=== PATIENT | female | born 1970 | race Caucasian/White ===

== ENCOUNTER 2019-08-18 08:34 | Inpatient (IN) | payer OTHER, SELFPAY ==
[2019-08-18] MEDS ORDERED: NA CHLORIDE 0.9% 500 ML ONE (08:53)
[2019-08-18 09:13] LABS: Basophils % 0.8 % (0-1.3); Hematocrit 28.6 % (36.0-45.0); Lymphocytes % 21.9 % (15.3-44.8); MPV 6.9 fL (7.6-11.3); RBC Red Blood Cell Count 4.55 M/uL (3.86-4.86)
[2019-08-18 09:17] LABS: Protime INR 1.04
[2019-08-18 09:28] LABS: ALT/SGPT 14 U/L (12-78); AST/SGOT 9 U/L (15-37); Albumin 3.4 g/dL (3.4-5.0); Alkaline Phosphatase 63 U/L (45-117); BUN Blood Urea Nitrogen 19 mg/dL (7-18); Bicarbonate 22 mmol/L (21-32); Bilirubin Direct < 0.1 mg/dL (0-0.2); Bilirubin Total 0.2 mg/dL (0.2-1.0); Glucose Level 122 mg/dL (74-106); Magnesium 1.8 mg/dL (1.8-2.4); NT PRO-BNP 67 pg/mL (<125); Potassium 3.9 mmol/L (3.5-5.1); Protein, Total 7.2 g/dL (6.4-8.2); Sodium Level 136 mmol/L (136-145); Troponin (Emerg Dept Use Only) < 0.02 ng/mL (0.0-0.045)
--- NOTE | 2019-08-18 09:52 | RAD REPORT ---
EXAM DESCRIPTION: RAD - Chest Single View - 08/18/2019 9:32 am CLINICAL HISTORY: CHEST PAIN Chest pain. COMPARISON: CHEST SINGLE VIEW dated 01/13/2008; CHEST PA AND LAT 2 VIEW dated 06/02/2007 FINDINGS: Portable technique limits examination quality. The lungs are grossly clear. The heart is normal in size. No displaced fractures. IMPRESSION: No acute intrathoracic process suspected.
[2019-08-18 10:05] LABS: Anisocytosis 1+; Blood Morphology Comment NOTED (NOT SEEN); Hypochromasia 2+; Macrocytosis SLIGHT; Ovalocytes 1+; Platelet Estimate ADEQ
--- NOTE | 2019-08-18 10:22 | EDPHYS ---
Physician Documentation [facility] Name: Sally Navarro Age: 49 yrs Sex: Female : 1970 Arrival Date: 08/18/2019 Time: 08:35 Bed 7 Private MD: ED Physician Sean Yanez HPI: 08/17 08:35 This 49 yrs old Female presents to ER via EMS with complaints of Chest Pain. cp 08:35 The patient or guardian reports chest pain that is located primarily in the substernal cp area. Onset: suddenly, this morning. The pain does not radiate. Associated signs and symptoms: Pertinent negatives: abdominal pain, diaphoresis, lower extremity pain, lower extremity swelling, palpitations, shortness of breath, syncope, vomiting. The chest pain is described as sharp. Duration: The patient or guardian reports a single episode, that is still ongoing, but improving. Patient reports sudden onset of chest pain while at work this morning .Patient reports she was walking up stairs when pain started. Patient given nitro sublingual and aspirin by EMS. Pain improved. 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 - Social history:: Smoking status: Patient reports the use of cigarette tobacco products, unknown amount. ROS: 08:40 Constitutional: Negative for body aches, chills, fever, poor PO intake. cp 08:40 Eyes: Negative for injury, pain, redness, and discharge. cp 08:40 ENT: Negative for ear pain, sore throat, difficulty swallowing, difficulty handling secretions. 08:40 Cardiovascular: Positive for chest pain, Negative for edema, palpitations. 08:40 Respiratory: Negative for cough, shortness of breath, wheezing. 08:40 Abdomen/GI: Negative for abdominal pain, vomiting, diarrhea, constipation. 08:40 Back: Negative for radiated pain. 08:40 : Negative for urinary symptoms. 08:40 Skin: Negative for rash. 08:40 Neuro: Negative for altered mental status, dizziness, headache, numbness, syncope, weakness. 08:40 All other systems are negative. Exam: 08:45 ECG was reviewed by the Attending Physician. cp 08:48 Constitutional: The patient appears in no acute distress, alert, awake, comfortable, cp non-diaphoretic, non-toxic, well developed, well nourished. 08:48 Head/Face: Normocephalic, atraumatic. cp 08:48 Eyes: Periorbital structures: appear normal, Pupils: equal, round, and reactive to light and accomodation, Extraocular movements: intact throughout, Conjunctiva: normal, Sclera: no appreciated abnormality, Lids and lashes: appear normal, bilaterally. 08:48 ENT: External ear(s): are unremarkable, Nose: is normal, Mouth: is normal, Posterior pharynx: is normal, airway is patent, no erythema, no exudate. 08:48 Neck: ROM/movement: is normal, is supple, without pain, no range of motions limitations, no nuchal rigidity. 08:48 Chest/axilla: Inspection: normal, Palpation: is normal, no crepitus, no tenderness. 08:48 Cardiovascular: Rate: normal, Rhythm: regular, Heart sounds: murmur, not appreciated, rub, not appreciated, gallop, not appreciated, Edema: is not appreciated, JVD: is not appreciated. 08:48 Respiratory: the patient does not display signs of respiratory distress, Respirations: normal, no use of accessory muscles, no retractions, labored breathing, is not present, Breath sounds: are clear throughout, no decreased breath sounds, no stridor, no wheezing. 08:48 Abdomen/GI: Inspection: abdomen appears normal, Palpation: abdomen is soft and non-tender, in all quadrants. 08:48 Back: pain, is absent, ROM is normal. 08:48 Neuro: Orientation: to person, place \T\ time. Mentation: is normal, Cerebellar function: is grossly normal, Motor: moves all fours, strength is normal, Sensation: is normal. Vital Signs: 08:30 BP 118 / 67; Pulse 81; Resp 18; Temp 98.6(TE); Pulse Ox 98% on R/A; Weight 97.52 kg rb1 (R); Height 5 ft. 8 in. (172.72 cm) (R); Pain 3/10; 08:45 BP 115 / 71 RA Sitting (man/reg); em1 08:45 BP 124 / 72 LA Sitting (auto/reg); em1 08:55 BP 117 / 68 LA (auto/reg); rb1 09:55 BP 144 / 93; Pulse 71; Resp 17; Pulse Ox 99% ; rb1 10:55 BP 150 / 86; Pulse 78; Resp 16; Pulse Ox 95% ; rb1 08:30 Body Mass Index 32.69 (97.52 kg, 172.72 cm) rb1 MDM: 08:37 Patient medically screened. cp 08:38 The patient was not given aspirin in the Emergency Department. Administered by EMS. cp 08:45 Differential diagnosis: abnormal EKG, acute myocardial infarction, cholecystitis, cp Cholelithiasis pericarditis, pneumonia, pneumothorax, pulmonary embolus, stable angina, thoracic aortic disection, unstable angina. 10:08 HEART Score: History: Moderately Suspicious (1), ECG: Normal (0), Age: > 45 and < 65 cp years (1), Risk Factors: 1 or 2 risk factors (1), [Hypertension] Troponin: < or = 1 x Normal Limit (0). 10:10 Data reviewed: vital signs, nurses notes, lab test result(s), EKG, radiologic studies, cp plain films, and as a result, I will admit patient. 10:10 Test interpretation: by ED physician or midlevel provider: ECG. Counseling: I had a cp detailed discussion with the patient and/or guardian regarding: the historical points, exam findings, and any diagnostic results supporting the discharge/admit diagnosis, lab results, radiology results, the need for further work-up and treatment in the hospital. Response to treatment: the patient's symptoms have markedly improved after treatment. 10:15 Physician consultation: Eliseo Fischer DO was contacted at 10:15, regarding admission, cp to the telemetry unit. patient's condition. 08/17 08:37 Order name: Basic Metabolic Panel; Complete Time: 09:55 cp 08/17 09:55 Interpretation: Normal except: GLUC 122; BUN 19; GFR 73. cp 08/17 08:37 Order name: CBC with Diff; Complete Time: 10:07 cp 08/17 09:25 Interpretation: Normal except: HGB 8.6; HCT 28.6; MCV 63.0; MCH 19.0; MCHC 30.2; PLT cp 413; RDW 17.8; MPV 6.9. 08/17 08:37 Order name: LFT's; Complete Time: 09:55 cp 18 09:56 Interpretation: Normal except: AST 9; GLOB 3.8; A/G 0.9. cp 08/17 08:37 Order name: Magnesium; Complete Time: 09:55 cp 08/17 08:37 Order name: NT PRO-BNP; Complete Time: 09:55 cp 08/17 08:37 Order name: PT-INR; Complete Time: 09:24 cp 18 08:37 Order name: Troponin (emerg Dept Use Only); Complete Time: 09:55 cp 18 09:56 Interpretation: TROPED < 0.02; Reviewed. cp 08/17 08:37 Order name: XRAY Chest (1 view); Complete Time: 10:07 cp 08/17 10:07 Interpretation: Report review. cp 08/17 08:37 Order name: EKG; Complete Time: 08:38 cp 08/17 08:37 Order name: Cardiac monitoring; Complete Time: 08:43 cp 08/17 08:37 Order name: EKG - Nurse/Tech; Complete Time: 08:43 cp 08/17 10:06 Order name: Manual Differential; Complete Time: 10:07 EDMS 08/17 08:37 Order name: IV Saline Lock; Complete Time: 09:02 cp 08/17 08:37 Order name: Labs collected and sent; Complete Time: 09:02 cp 08/17 08:37 Order name: O2 Per Protocol; Complete Time: 08:43 cp 08/17 08:37 Order name: O2 Sat Monitoring; Complete Time: 08:43 cp 08/17 08:39 Order name: Blood Pressure Recheck: bilateral upper extremity; Complete Time: 08:45 cp EC:45 Rate is 76 beats/min. Rhythm is regular. ME interval is normal. QRS interval is normal. cp QT interval is normal. T waves are Flattened in lead aVL. Interpreted by me. Reviewed by me. Administered Medications: 08:51 Drug: NS 0.9% 500 ml Route: IV; Rate: bolus; Site: right antecubital; rb1 09:30 Follow up: IV Status: Completed infusion rb1 11:25 Not Given (Patient Refused; Chest pain 03/11 per pt report): Nitroglycerin 0.4 mg rb1 Sublingual once Disposition: 08/18/19 10:21 Hospitalization ordered by Eliseo Fischer for Observation. Preliminary diagnosis is Chest pain, unspecified. - Bed requested for Telemetry/MedSurg (observation). - Status is Observation. rb1 - Condition is Stable. - Problem is new. - Symptoms have improved. Addendum: 08/19/2019 14:52 Co-signature as Attending Physician, Sean Yanez MD I agree with the assessment and k dr plan of care. Signatures: Dispatcher [employer] EDMS Libby Jewell bd Sean Yanez MD MD kdr Riki Hendrickson PA PA cp Gali Montiel, RN RN rb1 Contreras Bradley RN RN bp Corrections: (The following items were deleted from the chart) 08/17 10:53 10:21 Hospitalization Ordered by Eliseo Fischer DO for Observation. Preliminary bd diagnosis is Chest pain, unspecified. Bed requested for Telemetry/MedSurg (observation). Status is Observation. Condition is Stable. Problem is new. Symptoms have improved. cp 11:39 10:53 08/18/2019 10:21 Hospitalization Ordered by Eliseo Fischer DO for Observation. rb1 Preliminary diagnosis is Chest pain, unspecified. Bed requested for Telemetry/MedSurg (observation). Status is Observation. Condition is Stable. Problem is new. Symptoms have improved. bd
--- NOTE | 2019-08-18 10:22 | ER ---
Nurse's Notes [facility] Name: Sally Navarro Age: 49 yrs Sex: Female : 1970 Arrival Date: 08/18/2019 Time: 08:35 Bed 7 Private MD: Diagnosis: Chest pain, unspecified Presentation: 08/17 08:30 Initial Sepsis Screen: Does the patient meet any 2 criteria? No. Patient's initial rb1 sepsis screen is negative. Does the patient have a suspected source of infection? No. Patient's initial sepsis screen is negative. 08:30 Acuity: RONA 3 rb1 08:35 Chief complaint: EMS states: EXERTIONAL CHEST PAIN AT WORK. Coronavirus screen: Proceed bp with normal triage. Ebola Screen: No symptoms or risks identified at this time. Risk Assessment: Do you want to hurt yourself or someone else? Patient reports no desire to harm self or others. Onset of symptoms was August 18, 2019. 08:35 Method Of Arrival: EMS: [facility] bp Triage Assessment: 08:30 General: Appears in no apparent distress. comfortable, Behavior is calm, cooperative, rb1 Denies fever. Pain: Complains of pain in mid-sternal area Pain does not radiate. Pain currently is 3 out of 10 on a pain scale. Quality of pain is described as sharp, Pain began 1 hour ago. Neuro: Level of Consciousness is awake, alert, obeys commands, Oriented to person, place, time, situation. Cardiovascular: Capillary refill < 3 seconds. Respiratory: Airway is patent Respiratory effort is even, unlabored, Respiratory pattern is regular, symmetrical. GI: Reports nausea, vomiting. : No signs and/or symptoms were reported regarding the genitourinary system. Derm: Skin is pink, warm \T\ dry. Musculoskeletal: Range of motion: intact in all extremities. 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 - Social history:: Smoking status: Patient reports the use of cigarette tobacco products, unknown amount. Screenin:37 Abuse screen: Denies threats or abuse. Denies injuries from another. Nutritional bp screening: No deficits noted. Tuberculosis screening: No symptoms or risk factors identified. Fall Risk None identified. Assessment: 08:30 General: See triage assessment. rb1 08:46 Reassessment: Pt. refused Nitroglycerin at this time, provider notified. rb1 09:04 Pain: Complains of pain in mid-sternal area Pain currently is 1 out of 10 on a pain rb1 scale. 10:00 Reassessment: Patient appears in no apparent distress at this time. Patient and/or rb1 family updated on plan of care and expected duration. Pain level reassessed. Patient is alert, oriented x 3, equal unlabored respirations, skin warm/dry/pink. 11:00 Reassessment: Patient appears in no apparent distress at this time. No changes from rb1 previously documented assessment. 11:07 Reassessment: Tried to call report, unable to give report at this time, AMIE Marcus is rb1 in another pt. room. 11:20 Reassessment: Gave report to AMIE Marcus. Information from the SBAR was given. All rb1 questions asked and answered. Vital Signs: 08:30 BP 118 / 67; Pulse 81; Resp 18; Temp 98.6(TE); Pulse Ox 98% on R/A; Weight 97.52 kg rb1 (R); Height 5 ft. 8 in. (172.72 cm) (R); Pain 3/10; 08:45 BP 115 / 71 RA Sitting (man/reg); em1 08:45 BP 124 / 72 LA Sitting (auto/reg); em1 08:55 BP 117 / 68 LA (auto/reg); rb1 09:55 BP 144 / 93; Pulse 71; Resp 17; Pulse Ox 99% ; rb1 10:55 BP 150 / 86; Pulse 78; Resp 16; Pulse Ox 95% ; rb1 08:30 Body Mass Index 32.69 (97.52 kg, 172.72 cm) rb1 ED Course: 08:30 Arm band placed on right wrist. rb1 08:30 Patient maintains SpO2 saturation greater than 95% on room air. rb1 08:35 Patient arrived in ED. bp 08:36 Riki Hendrickson PA is PHCP. cp 08:36 Sean Yanez MD is Attending Physician. cp 08:37 Patient has correct armband on for positive identification. Bed in low position. Call bp light in reach. Side rails up X2. telemetry monitor on. Pulse ox on. NIBP on. 08:38 Gali Montiel, RN is Primary Nurse. rb1 08:39 Triage completed. rb1 08:45 EKG done, by ED staff, reviewed by Riki METZ. em1 08:50 Inserted saline lock: 22 gauge in right forearm, using aseptic technique. Blood rb1 collected. 09:33 XRAY Chest (1 view) In Process Unspecified. EDMS 10:20 Eliseo Fischer DO is Hospitalizing Provider. cp 11:24 No provider procedures requiring assistance completed. Patient admitted, IV remains in rb1 place. Administered Medications: 08:51 Drug: NS 0.9% 500 ml Route: IV; Rate: bolus; Site: right antecubital; rb1 09:30 Follow up: IV Status: Completed infusion rb1 11:25 Not Given (Patient Refused; Chest pain 03/11 per pt report): Nitroglycerin 0.4 mg rb1 Sublingual once Outcome: 10:21 Decision to Hospitalize by Provider. cp 11:24 Admitted to Med/surg accompanied by tech, via wheelchair, room 202, with chart, Report rb1 called to AMIE Marcus 11:24 Condition: stable 11:24 Instructed on the need for admit. 11:39 Patient left the ED. rb1 Signatures: Dispatcher [employer] EDPA Larry Cano em1 Riki Hendrickson PA PA cp Gali Montiel, RN RN rb1 Contreras Bradley RN RN bp
--- OUTSIDE RECORDS SUMMARY | 2019-08-18 10:50 | XMS REPORT | Continuity of Care Document ---
:1970 Author Organization [facility] t Address [address] [place] [address] Care Team Providers Name Role Phone Unavailable Unavailable Unavailable Payers Payer Name Policy Type Policy Number Effective Date Expiration Date S ource Problems This patient has no known problems. Allergies, Adverse Reactions, Alerts Allergy Allergy Status Severity Reaction(s) Onset Inactive Treating Comm ents Source Name Type Date Date Clinician No Known DA Active U [facility] 07-31 [facility] 00:00: [address] Medications This patient has no known medications. Procedures This patient has no known procedures. Results Test Description Test Time Test Comments Results Result [facility] e Comments - US TRANSVAGINAL 2018-06-09 Patient Name: NON OB 18:29:00 DENAE DIAZ Unit No: [id number] EXAMS: CPT CODE: [id number] [place] [id number] Location: T 18 Transvaginal and transabdominal pelvic sonogram 06/09/18 CLINICAL HISTORY: Pelvic pain with heavy bleeding. Patient presenting to the emergency room. Beta hCG value is not provided. Please correlate with this value. FINDINGS: The uterus is somewhat enlarged measuring 10.4 x 5.7 x 6 cm in dimension. The bladder appears unremarkable. The myometrium of the uterus is somewhat heterogeneous. The endometrial stripe is mildly thickened but likely functional related measuring 1.6 cm. Fibroid lesion is noted along the left posterior wall-appearing intramural measuring 1.7 x 1.1 x 1.8 cm. Additional fibroid lesion is seen along the fundus of the uterus. This also appears intramural measuring approximately 2.2 x 2.2 x 1.8 cm. No definite calcific components. No free fluid collections within the endometrial stripe which is fairly homogeneous. Fibroid lesion in the fundus of the uterus best seen with transvaginal technique. Functional appearing follicles identified. No definite abnormal adnexal masses or ovarian mass. The right ovary measures 3.4 x 1.7 x 2.3 cm. The left ovary measures 3.1 x 1.4 x 2.3 cm. Nabothian cysts seen in the lower uterine segment. No significant free fluid collections in the pelvis. IMPRESSION: There are at least 2 discrete fibroid lesions involving uterus. One is present in the fundus and the other present left posteriorly appearing intramural The endometrial stripe mildly prominent but is homogeneous. This is likely functional related. The endometrial stripe 1.7 cm No abnormal adnexal masses or findings of concern for ovarian torsion at 1829 Reported and signed by: Vanessa Verduzco MD CC: MARIA LUISA FERNANDES DO Technologist: [id number]; Radha Cortés RDMS(OB)(AB) Transcrpt Date/Tm/Trnsp: 06/09/2018 (1828) [email or web address] Orig Print D/T: S: 06/09/2018 (1831) [facility] NAME: DENAE DIAZ [id number] PHYS: [place] [address] : 1970 AGE: 47 SEX: F LOC: ZElijahERS PHONE #: [phone] EXAM DATE: 06/09/2018 STATUS: REG ER FAX #: [phone] RADIOLOGY NO: [id number] PAGE 1 Signed Report - US PELVIS 2018-06-09 Patient Name: COMPLETE 18:29:00 DENAE DIAZ Unit No: [id number] EXAMS: CPT CODE: [id number] US PELVIS COMPLETE [id number] Location: T 18 Transvaginal and transabdominal pelvic sonogram 06/09/18 CLINICAL HISTORY: Pelvic pain with heavy bleeding. Patient presenting to the emergency room. Beta hCG value is not provided. Please correlate with this value. FINDINGS: The uterus is somewhat enlarged measuring 10.4 x 5.7 x 6 cm in dimension. The bladder appears unremarkable. The myometrium of the uterus is somewhat heterogeneous. The endometrial stripe is mildly thickened but likely functional related measuring 1.6 cm. Fibroid lesion is noted along the left posterior wall-appearing intramural measuring 1.7 x 1.1 x 1.8 cm. Additional fibroid lesion is seen along the fundus of the uterus. This also appears intramural measuring approximately 2.2 x 2.2 x 1.8 cm. No definite calcific components. No free fluid collections within the endometrial stripe which is fairly homogeneous. Fibroid lesion in the fundus of the uterus best seen with transvaginal technique. Functional appearing follicles identified. No definite abnormal adnexal masses or ovarian mass. The right ovary measures 3.4 x 1.7 x 2.3 cm. The left ovary measures 3.1 x 1.4 x 2.3 cm. Nabothian cysts seen in the lower uterine segment. No significant free fluid collections in the pelvis. IMPRESSION: There are at least 2 discrete fibroid lesions involving uterus. One is present in the fundus and the other present left posteriorly appearing intramural The endometrial stripe mildly prominent but is homogeneous. This is likely functional related. The endometrial stripe 1.7 cm No abnormal adnexal masses or findings of concern for ovarian torsion at 1829 Reported and signed by: Vanessa Verduzco MD CC: MARIA LUISA FERNANDES DO Technologist: [id number]; Radha Cortés RDMS(OB)(AB) Transcrpt Date/Tm/Trnsp: 06/09/2018 (1828) [email or web address] Orig Print D/T: S: 06/09/2018 (183) [facility] NAME: DENAE DIAZ [id number] PHYS: [place] [address] : 1970 AGE: 47 SEX: F LOC: ZLELE PHONE #: [phone] EXAM DATE: 06/09/2018 STATUS: REG ER FAX #: [phone] RADIOLOGY NO: [id number] PAGE 1 Signed Report URINALYSIS COMPLETE 2018-06-09 16:14:00 Test Item Value Reference Range Interpretation Comme nts UA COLOR (test code = COLU) BROWN YELLOW UA APPEARANCE (test code = APPU) very cloudy CLEAR UA GLUCOSE DIPSTICK (test code = DGLUU) NORMAL MG/DL NORMAL UA BILIRUBIN DIPSTICK (test code = BILU) NEGATIVE MG/DL NEGATIVE UA KETONE DIPSTICK (test code = KETU) 15 MG/DL NEGATIVE A UA SPECIFIC GRAVITY (test code = SGU) 1.025 1.003-1.030 N UA BLOOD DIPSTICK (test code = BHAKTI) 250 [place]/mm3 NEGATIVE A UA PH DIPSTICK (test code = ANGEL) 6.5 5.0-9.0 N UA PROTEIN DIPSTICK (test code = PROU) 100 MG/DL NEGATIVE A UA UROBILINIOGEN DIPSTICK (test code = URO) NORMAL MG/DL NORMAL UA NITRITE DIPSTICK (test code = ARIANNE) POSITIVE NEGATIVE A UA LEUKOCYTE ESTERASE DIPSTICK (test code = LEUU) 100 /mm3 NEGA TIVE A UA CULTURE NEEDED? (test code = UACULT) NO, WBC<10 Criteria Culture Chk UA [id number] 16:14:00 Test Item Value Reference Range Interpretation Comments UA RBC (test code = RBCU) >100 RBC/HPF 0-3 A UA WBC (test code = XWBCU) 5-9 WBC/HPF 0-5 A UA EPITHELIAL CELLS (test code = FEW EPI/HPF FEW EPIU) UA BACTERIA (test code = XBACU) FEW NONE URINALYSIS [id number] 15:58:00 Test Item Value Reference Range Interpretation Comments UA COLOR (test code = COLU) BROWN YELLOW UA APPEARANCE (test code = very cloudy CLEAR APPU) UA GLUCOSE DIPSTICK (test code NORMAL MG/DL NORMAL = DGLUU) UA BILIRUBIN DIPSTICK (test NEGATIVE MG/DL NEGATIVE code = BILU) UA KETONE DIPSTICK (test code 15 MG/DL NEGATIVE A = KETU) UA SPECIFIC GRAVITY (test code 1.025 1.003-1.030 N = SGU) UA BLOOD DIPSTICK (test code = 250 [place]/mm3 NEGATIVE A BHAKTI) UA PH DIPSTICK (test code = 6.5 5.0-9.0 N ANGEL) UA PROTEIN DIPSTICK (test code 100 MG/DL NEGATIVE A = PROU) UA UROBILINIOGEN DIPSTICK NORMAL MG/DL NORMAL (test code = URO) UA NITRITE DIPSTICK (test code POSITIVE NEGATIVE A = ARIANNE) UA LEUKOCYTE ESTERASE DIPSTICK 100 /mm3 NEGATIVE A (test code = LEUU) UA CULTURE NEEDED? (test code Criteria Culture Chk = UACULT) UA [id number] 15:58:00 Test Item Value Reference Range Interpretation Comments UA RBC (test code = RBCU) RBC/HPF 0-3 UA WBC (test code = XWBCU) WBC/HPF 0-5 UA EPITHELIAL CELLS (test code = EPI/HPF FEW EPIU) UA BACTERIA (test code = XBACU) NONE URINALYSIS [id number] 15:58:00 Test Item Value Reference Range Interpretation Comments UA COLOR (test code = COLU) BROWN YELLOW UA APPEARANCE (test code = very cloudy CLEAR APPU) UA GLUCOSE DIPSTICK (test code NORMAL MG/DL NORMAL = DGLUU) UA BILIRUBIN DIPSTICK (test NEGATIVE MG/DL NEGATIVE code = BILU) UA KETONE DIPSTICK (test code 15 MG/DL NEGATIVE A = KETU) UA SPECIFIC GRAVITY (test code 1.025 1.003-1.030 N = SGU) UA BLOOD DIPSTICK (test code = 250 [place]/mm3 NEGATIVE A BHAKTI) UA PH DIPSTICK (test code = 6.5 5.0-9.0 N ANGEL) UA PROTEIN DIPSTICK (test code 100 MG/DL NEGATIVE A = PROU) UA UROBILINIOGEN DIPSTICK NORMAL MG/DL NORMAL (test code = URO) UA NITRITE DIPSTICK (test code POSITIVE NEGATIVE A = ARIANNE) UA LEUKOCYTE ESTERASE DIPSTICK 100 /mm3 NEGATIVE A (test code = LEUU) UA CULTURE NEEDED? (test code Criteria Culture Chk = UACULT) UA [id number] 15:58:00 Test Item Value Reference Range Interpretation Comments UA RBC (test code = RBCU) RBC/HPF 0-3 UA WBC (test code = XWBCU) WBC/HPF 0-5 UA EPITHELIAL CELLS (test code = EPI/HPF FEW EPIU) UA BACTERIA (test code = XBACU) NONE COMPREHENSIVE METABOLIC [id number] 15:58:00 Test Item Value Reference Range Interpretation Comments SODIUM (test code = NA) 136 MMOL/L 137-145 L POTASSIUM (test code = 4.2 MMOL/L 3.5-5.1 N K) CHLORIDE (test code = 103 MMOL/L 98-107 N CL) CARBON DIOXIDE (test 23 MMOL/L 22-30 N code = CO2) ANION GAP (test code = 14 MMOL/L 14-24 N GAP) GLUCOSE (test code = 106 MG/DL 74-106 N GLU) BLOOD UREA NITROGEN 13 MG/DL 7-17 N (test code = BUN) GLOMERULAR FILTRATION > 60 Report ing units: RATE (test code = GFR) ml/mi n/1.73 m2 (Modified MDRD Formula)Referen ce Range: > or = 6 0 ml/min/1.73 m2 CREATININE (test code = 0.70 MG/DL 0.52-1.04 N CREAT) TOTAL PROTEIN (test 8.4 G/DL 6.3-8.2 H code = PROT) ALBUMIN (test code = 4.6 G/DL 3.5-5.0 N ALB) CALCIUM (test code = 9.3 MG/DL 8.4-10.2 N CA) BILIRUBIN TOTAL (test 0.3 MG/DL 0.2-1.3 N code = BILT) SGOT/AST (test code = 22 UNITS/L 14-36 N AST) SGPT/ALT (test code = 12 UNITS/L 9-52 N ALT) ALKALINE PHOSPHATASE 72 UNITS/L 38-126 N (test code = ALKP) [id number] 15:58:00 Test Item Value Reference Range Interpretation Comments LIPASE (test code = LIP) 35 UNITS/L 23-300 N HCG SERUM [id number] 15:58:00 Test Item Value Reference Range Interpretation Comments HCG SERUM QUAL (test code = HCGQL) NEGATIVE NEGATIVE A COMPREHENSIVE METABOLIC [id number] 15:53:00 Test Item Value Reference Range Interpretation Comments SODIUM (test code = NA) MMOL/L 137-145 POTASSIUM (test code = K) MMOL/L 3.5-5.1 CHLORIDE (test code = CL) MMOL/L 98-107 CARBON DIOXIDE (test code = CO2) MMOL/L 22-30 GLUCOSE (test code = GLU) MG/DL 74-106 BLOOD UREA NITROGEN (test code = MG/DL 7-17 BUN) GLOMERULAR FILTRATION RATE (test code = GFR) CREATININE (test code = CREAT) MG/DL 0.52-1.04 TOTAL PROTEIN (test code = PROT) G/DL 6.3-8.2 ALBUMIN (test code = ALB) G/DL 3.5-5.0 CALCIUM (test code = CA) MG/DL 8.7-9.7 BILIRUBIN TOTAL (test code = BILT) MG/DL 0.2-1.3 SGOT/AST (test code = AST) UNITS/L 15-37 SGPT/ALT (test code = ALT) UNITS/L 9-52 ALKALINE PHOSPHATASE (test code = UNITS/L 38-126 ALKP) [id number] 15:53:00 Test Item Value Reference Range Interpretation Comments LIPASE (test code = LIP) UNITS/L 23-300 HCG SERUM [id number] 15:53:00 Test Item Value Reference Range Interpretation Comments HCG SERUM QUAL (test code = HCGQL) NEGATIVE NEGATIVE A CBC W/AUTO [id number] 15:39:00 Test Item Value Reference Range Interpretation Comments WHITE BLOOD CELL (test code = 12.5 K/MM3 3.8-9.8 H WBC) RED BLOOD CELL (test code = 5.45 M/MM3 3.58-4.97 H RBC) HEMOGLOBIN (test code = HGB) 11.8 G/DL 11.2-14.9 N HEMATOCRIT (test code = HCT) 38.9 % 33.2-43.5 N MEAN CELL VOLUME (test code = 71 fL 80.7-99.1 L MCV) MEAN CELL HGB (test code = MCH) 21.7 pg 27.0-34.1 L MEAN CELL HGB CONCETRATION 30.3 % 32.2-35.7 L (test code = MCHC) RED CELL DISTRIBUTION WIDTH 16.2 % 12.1-15.2 H (test code = RDW) PLATELET COUNT (test code = 357 K/MM3 129-368 N PLT) MEAN PLATELET VOLUME (test code 8.8 fl 7.4-10.4 N = MPV) NEUTROPHIL % (test code = NT%) 77.9 % 43-75 H IMMATURE GRANULOCYTE % (test 0.4 % 0.0-2.0 N code = IG%) LYMPHOCYTE % (test code = LY%) 16.0 % 14-44 N MONOCYTE % (test code = MO%) 5.1 % 4-13 N EOSINOPHIL % (test code = EO%) 0.3 % 0-6 N BASOPHIL % (test code = BA%) 0.3 % 0-2 N NUCLEATED RBC % (test code = 0.0 % 0-1.0 N NRBC%) NEUTROPHIL # (test code = NT#) 9.70 K/mm3 2.0-7.6 H IMMATURE GRANULOCYTE # (test 0.05 x10 3/uL 0-0.03 H code = IG#) LYMPHOCYTE # (test code = LY#) 1.99 K/mm3 1.0-3.8 N MONOCYTE # (test code = MO#) 0.64 K/mm3 0.1-0.8 N EOSINOPHIL # (test code = EO#) 0.04 K/mm3 0.0-0.2 N BASOPHIL # (test code = BA#) 0.04 K/mm3 0.0-0.2 N NUCLEATED RBC # (test code = 0.00 K/mm3 0.0-0.1 N NRBC#)
--- NOTE | 2019-08-18 11:22 | P.HP ---
Certification for Inpatient Patient admitted to: Observation With expected LOS: <2 Midnights Patient will require the following post-hospital care: None Practitioner: I am a practitioner with admitting privileges, knowledge of patient current condition, hospital course, and medical plan of care. Services: Services provided to patient in accordance with Admission requirements found in Title 42 Section 412.3 of the Code of Federal Regulations <Tom Sheppard - Last Filed: 08/18/19 11:15> Patient History Date of Service: 08/18/19 Primary Care Provider: Juvencio Reason for admission: Chest pain History of Present Illness: 41-year-old female history of hypertension presented to the emergency department with a 1 day history of chest pain. Chest pain began while she was walking up a flight of steps. Patient reports that the pain is sharp, substernal, radiates to back. Patient reports that when she again experiencing the pain she also became diaphoretic, short of breath, and nauseous. Patient also reports that her father at the age of 52 from a myocardial infarction. The patient's initial workup in the emergency department was negative but due to risk factors a story ED provider wishes to admit the patient for further evaluation management. When I saw the patient in the emergency department she appeared stable, calm, cooperative. Vital signs within normal limits. EKG without any ST elevation. Patient will be admitted for further evaluation management of this chest pain. - Past Medical/Surgical History Has patient received pneumonia vaccine in the past: No Diabetic: No -: Hypertension -: Right knee surgery -: Tubal ligation Psychosocial/ Personal History: Patient is single, lives at home with her 3 gr andchildren. - Family History Mother -: Diabetes Father -: Heart disease - Social History Smoking Status: Never smoker Alcohol use: Yes CD- Drugs: No Caffeine use: Yes Place of Residence: Home <Tom Sheppard - Last Filed: 08/18/19 11:15> Date of Service: 08/18/19 <Eliseo Fischer - Last Filed: 08/18/19 16:51> Allergies No Known Allergies Allergy (Unverified 04/15/11 19:58) Home Medications: Labetalol HCl [Trandate*] 1 tab PO BID 08/18/19 Review of Systems General: Unremarkable Eyes: Unremarkable ENT: Unremarkable Respiratory: SOB with Excertion, As per HPI Cardiovascular: Chest Pain, Unremarkable Genitourinary: Unremarkable Musculoskeletal: Unremarkable Integumentary: Unremarkable Neurological: Unremarkable Lymphatics: Unremarkable <Tom Sheppard - Last Filed: 08/18/19 11:15> Physical Examination - Physical Exam General: Alert, In no apparent distress, Oriented x3 HEENT: Atraumatic, Normocephalic, Mucous membr. moist/pink Neck: Supple Respiratory: Clear to auscultation bilaterally, Normal air movement Cardiovascular: No edema, Normal pulses, Regular rate/rhythm, Normal S1 S2 Capillary refill: <2 Seconds Gastrointestinal: Normal bowel sounds, Soft and benign Musculoskeletal: No clubbing, No swelling Integumentary: No significant lesion, No tenderness/swelling, No erythema Neurological: Normal gait, Normal speech, Normal tone, Normal affect - Studies Laboratory Data (last 24 hrs) 08/18/19 08:50: PT 12.3, INR 1.04 08/18/19 08:50: WBC 9.0, Hgb 8.6 L, Hct 28.6 L, Plt Count 413 H 08/18/19 08:50: Sodium 136, Potassium 3.9, BUN 19 H, Creatinine 0.83, Glucose 122 H, Magnesium 1.8, Total Bilirubin 0.2, AST 9 L, ALT 14, Alkaline Phosphatase 63 <Tom Sheppard - Last Filed: 08/18/19 11:15> - Studies Laboratory Data (last 24 hrs) 08/18/19 08:50: PT 12.3, INR 1.04 08/18/19 08:50: WBC 9.0, Hgb 8.6 L, Hct 28.6 L, Plt Count 413 H 08/18/19 08:50: Sodium 136, Potassium 3.9, BUN 19 H, Creatinine 0.83, Glucose 122 H, Magnesium 1.8, Total Bilirubin 0.2, AST 9 L, ALT 14, Alkaline Phosphatase 63 <Eliseo Fischer - Last Filed: 08/18/19 16:51> Assessment and Plan - Plan Assessment Exertional chest pain suspect cardiac in origin Hypertension Microcytic anemia suspect iron deficiency anemia Plan Exertional chest pain suspect cardiac in origin: Initial cardiac enzymes, chest x-ray and ECG are negative. Will trend cardiac enzymes. Cardiology has been consulted on this case. Beta-ayden therapy and daily aspirin has been initiated. Patient will remain on telemetry during this hospitalization. Echocardiogram has been ordered. DVT prophylaxis with Lovenox 40 mg subcutaneous daily. Anticipate discharge next 24-48 hr depending on findings with cardiology. Appreciate further input from cardiology. Hypertension: Have initiated metoprolol 12.5 mg twice daily. Will otherwise obtain and continue patient's home medications and monitor blood pressure. Microcytic anemia suspect iron deficiency anemia: Will continue to monitor H&H. I have ordered workup for iron deficiency anemia. Will followup results. Discharge Plan: Home Plan to discharge in: 24 Hours - Advance Directives Does patient have a Living Will: No Does patient have a Durable POA for Healthcare: No - Code Status/Comfort Care Code Status Assessed: Yes (Patient is full code) Critical Care: No Time Spent Managing Pts Care (In Minutes): 55 <Tom Sheppard - Last Filed: 08/18/19 11:15> - Plan Patient seen and examined. Agree with assessment, evaluation and plan of care with nurse practitioner. Case discussed with cardiology. Chest pain very suspicious. Patient will have heart catheterization tomorrow. Patient will family with significant heart disease. Patient also has underlying GERD. Will need to treat this. She was recently treated and evaluated by her PCP for H pylori. If cardiac workup unremarkable patient will require GI evaluation and workup as an outpatient. Will also need a consider pulmonary evaluation as an outpatient. <Eliseo Fischer - Last Filed: 08/18/19 16:51>
[2019-08-18] MEDS ORDERED: ONDANSETRON 4 MG/2 ML VIAL IV PRN (11:48)
[2019-08-18] MEDS ORDERED: ACETAMINOPHEN 500 MG TAB PO PRN (11:48)
[2019-08-18 13:37] VITALS: BMI 32.6
[2019-08-18 15:46] LABS: CKMB Creatine Kinase MB < 1.0 ng/mL (0.3-3.6); Creatine Phosphokinase 33 U/L (26-192); Troponin I < 0.02 ng/mL (0.0-0.045)
[2019-08-18] MEDS: METOPROLOL TAR 25 MG TAB PO SCH (18:06)
--- NOTE | 2019-08-18 18:37 | CON ---
Date of Consultation: 08/18/2019 Chief Complaint: Chest pain. History Of Present Illness: This is a 49-year-old female, history of hypertension, dyslipidemia, who was at work today and had a significant chest pain episode. She climbs stairs at work and she goes up to like 20 floor sometimes and she and she used to do them without difficulties. Today, she had t o stop every few steps because of substernal chest pain, pressure-like, radiates to the neck, along w ith significant shortness of breath and she became nauseated and vomited 3 times. Stopped what she w as doing and she came to the emergency room. At the present time, she is chest pain-free. The patie nt claimed that she never had this before and She had a very good exercise tolerance prior to this ev ent. There are no other relieving or exacerbating factors. Past Medical History: Hypertension, dyslipidemia. Medications: Refer to reconciliation sheet for detailed list. Allergies: NO KNOWN DRUG ALLERGIES. Social History: She does not smoke or drink. Does not use any drugs. Never used drugs. Family History: The father at age of 52 with a heart attack. Past Surgical History: None. Review of Systems: All systems reviewed were negative except for mentioned in the HPI. Physical Examination: Vital Signs: Showed a temperature of 97.6, pulse 70, breathing at 16, blood pressure 151/90, saturat ing at 100% on room air. General: A pleasant, middle-aged female in no apparent distress. Head and Neck: Pupils are equal, react to light. Intact eye movements. No JVD. No cervical lympha denopathy. Neck: Supple. Thyroid is not enlarged. Lungs: Clear to auscultation bilaterally causing crackles. No accessory muscle use. Heart: Regular rate and rhythm. No extra sounds. Abdomen: Soft, nontender. Bowel sounds positive. No organomegaly. No muscle tenderness. No rigid ity or rebound. Extremities: No edema, clubbing, or cyanosis. Intact pulses. Skin: No rash. Neurologic: Alert, awake, oriented x3. No acute focal deficits appreciated. Investigations: Troponin less than 0.02. Creatinine 0.83. EKG, no acute ST-T wave abnormalities. Assessment And Recommendation: 1.Chest pain, very typical chest pain and very frequent suggestive of unstable angina versus acute c oronary syndrome. First set of cardiac enzymes negative and she is chest-pain free at this time. Sh patria already had full lunch. Given that she had risk factors including hypertension, dyslipidemia, sign ificant family history of coronary artery disease plus the very typical story for presentation, I hav e recommended to go directly to coronary angiogram. I discussed risks, benefits, and alternatives wi th her and she agreed to the procedure and signed informed consent as such. Since she had lunch alre blayne, we will schedule her for first thing in the morning. If troponin is positive, she will be start ed on anticoagulation. Otherwise, load with aspirin and check lipids and use nitroglycerin patch 1 i nch every 8 hours to the chest wall for pain control and better blood pressure control. 2.Hypertension. Blood pressure is uncontrolled. Add nitroglycerin as above. 3.Dyslipidemia. Check lipids. I appreciate letting me see your patient. /ABIGAIL Voice ID: [id number] Report ID: [id number]
[2019-08-18] MEDS ORDERED: PANTOPRAZOLE 40MG TABLET PO ONE (21:21)
[2019-08-18] MEDS ORDERED: FAMOTIDINE 20 MG/2 ML VIAL IV SCH (21:30)
[2019-08-18 22:04] LABS: CKMB Creatine Kinase MB < 1.0 ng/mL (0.3-3.6); Creatine Phosphokinase 30 U/L (26-192); Troponin I < 0.02 ng/mL (0.0-0.045)
[2019-08-19] MEDS: ASPIRIN EC 81 MG TAB PO SCH (05:13)
[2019-08-19] MEDS: METOPROLOL TAR 25 MG TAB PO SCH ×2 (05:13→18:26)
[2019-08-19 06:25] LABS: Absolute Lymphocytes (CBC) 3.4 K/uL (0.7-4.9); Basophils % 0.8 % (0-1.3); Hematocrit 30.3 % (36.0-45.0); Lymphocytes % 33.4 % (15.3-44.8); MPV 7.3 fL (7.6-11.3)
[2019-08-19 07:36] LABS: Ferritin 2.9 ng/mL (8-388); Magnesium 1.9 mg/dL (1.8-2.4); Thyroid Stimulating Hormone 2.79 uIU/mL (0.360-3.740)
[2019-08-19] MEDS: ENOXAPARIN 40 MG/0.4 ML SQ SCH (09:00)
--- NOTE | 2019-08-19 11:14 | EKG ---
Test Date: 2019-08-18 Test Time: 08:39:53 Raw Stock Machine Loader: TOMMIE MEASUREMENT RESULTS: Intervals: Rate: 76 NM: 174 QRSD: 82 QT: 406 QTc: 456 [place]: P: 44 NM: 174 QRS: 31 T: 51 INTERPRETIVE STATEMENTS: Normal sinus rhythm Septal infarct, age undetermined Abnormal ECG Compared to ECG 01/13/2008 17:57:59 Myocardial infarct finding now present Electronically Signed On 08-19-19 11:13:05 CDT by Jurgen Espinal
--- NOTE | 2019-08-19 11:37 | P.PN ---
Subjective Date of Service: 08/19/19 Primary Care Provider: Juvencio Chief Complaint: Chest pain Subjective: Improving, Doing well Physical Examination - Vital Signs Temperature: 96.9 F Blood Pressure: 178/87 Pulse: 58 Respirations: 15 Pulse Ox (%): 98 - Physical Exam General: Alert, In no apparent distress, Oriented x3, Cooperative HEENT: Atraumatic Neck: Supple Respiratory: Clear to auscultation bilaterally, Normal air movement Cardiovascular: Normal pulses, Regular rate/rhythm Gastrointestinal: Normal bowel sounds, Soft and benign, Non-distended Neurological: Normal speech, Normal strength at 5/5 x4 extr, Normal tone, Normal affect - Studies Laboratory Data (last 24 hrs) 08/19/19 05:22: Sodium 134 L, Potassium 4.0, BUN 12, Creatinine 0.75, Glucose 104, Magnesium 1.9, Triglycerides 162 H, Cholesterol 201 H, HDL Cholesterol 64 H, Cholesterol/HDL Ratio 3.14 08/19/19 05:22: WBC 10.3 D, Hgb 9.2 L, Hct 30.3 L, Plt Count 460 H 08/18/19 21:14: Troponin I < 0.02 08/18/19 15:18: Troponin I < 0.02 Microbiology Data (last 24 hrs): 08/18/19 13:20 Nasopharnyx Coronavirus COVID-19 PCR - Final Medications List Reviewed: Yes Assessment & Plan Discharge Plan: Home Plan to discharge in: 24 Hours Physician Review Additional Text: Assessment Exertional chest pain suspect cardiac in origin Hypertension Microcytic anemia suspect iron deficiency anemia GERD Plan Exertional chest pain suspect cardiac in origin: Patient to have heart catheterization today. Await findings. Continue with beta-ayden therapy, aspirin, Lipitor. Will discuss further with cardiology. If workup unremarkable will plan for discharge. May need to adjust hypertensive medication. Hypertension: Medication adjusted. Continue to monitor closely. May need additional medication. Await heart catheterization findings. Microcytic anemia suspect iron deficiency anemia: Patient with iron deficiency anemia. Will monitor closely. IV iron initiated. GERD: Will start medication. Will recommend EGD/GI evaluation as outpatient. Time Spent Managing Pts Care (In Minutes): 55
--- NOTE | 2019-08-19 11:41 | ECHO ---
HEIGHT: 5 ft 8 in WEIGHT: 215 lb 0 oz DATE OF STUDY: 08/19/[address]: Tom Sheppard NP 2-DIMENSIONAL: YES M.MODE: YES DOPPLER: YES COLOR FLOW: YES TDS: NO PORTABLE: NO DEFINITY: NO BUBBLE STUDY: NO DIAGNOSIS: CHEST PAIN CARDIAC HISTORY: CATHERIZATION: NO SURGERY: NO PROSTHETIC VALVE: NO PACEMAKER: NO MEASUREMENTS (cm) DIASTOLIC (NORMALS) SYSTOLIC (NORMALS) IVSd 1.3 (0.6-1.2) LA Diam (1.9-4.0) LVEF 67% LVIDd 4.8 (3.5-5.7) LVIDs 3.0 (2.0-3.5) %FS 37% LVPWd 1.2 (0.6-1.2) Ao Diam 2.5 (2.0-3.7) 2 DIMENSIONAL ASSESSMENT: RIGHT ATRIUM: NORMAL LEFT ATRIUM: NORMAL RIGHT VENTRICLE: NORMAL LEFT VENTRICLE: NORMAL TRICUSPID VALVE: NORMAL MITRAL VALVE: NORMAL PULMONIC VALVE: NORMAL AORTIC VALVE: NORMAL PERICARDIAL EFFUSION: NONE AORTIC ROOT: NORMAL LEFT VENTRICULAR WALL MOTION: NORMAL DOPPLER/COLOR FLOW: NORMAL COMMENTS: NORMAL 2D ECHOCARDIOGRAM WITH DOPPLER. NO WALL MOTION ABONORMALITY. NO EFFUSION. TECHNOLOGIST: Itz WYNN
[2019-08-19] MEDS ORDERED: NA CHLORIDE 0.9% 1,000 ML ONE (12:31)
[2019-08-19] MEDS ORDERED: HEPA 1000U/500MLS 1,000 UNIT/500 ML BAG IV ONE (13:03)
[2019-08-19] MEDS ORDERED: MIDAZOLAM HCL 2 MG/2 ML INJ ONE (13:03)
[2019-08-19] MEDS ORDERED: NA CHLORIDE 0.9% 0 ML ONE (13:04)
[2019-08-19] MEDS ORDERED: FENTANYL CITR 100 MCG/2 ML ONE (13:04)
[2019-08-19] MEDS ORDERED: ATROPINE SULF 1 MG/10 ML SYR IV ONE (13:04)
[2019-08-19] MEDS ORDERED: cloNIDine HCL 0.1 MG TAB ONE ×2 (15:07→16:03)
[2019-08-19] MEDS ORDERED: NITROGLYCERIN 0.4 MG/TAB SL ONE (15:56)
[2019-08-19] MEDS ORDERED: HYDRALAZINE HCL 20 MG/ML VIAL IV PRN (16:08)
[2019-08-19] MEDS: lisinopriL 20 MG TAB PO SCH (20:44)
[2019-08-19] MEDS ORDERED: ATORVASTATIN 40 MG TAB PO SCH (21:00)
[2019-08-19] MEDS ORDERED: PANTOPRAZOLE 40MG TABLET PO ONE (21:09)
[2019-08-20 04:46] VITALS: O2SAT 96
[2019-08-20] MEDS: METOPROLOL TAR 25 MG TAB PO SCH (05:35)
[2019-08-20] MEDS ORDERED: PANTOPRAZOLE 40MG TABLET PO SCH ×2 (06:00→06:30)
[2019-08-20] MEDS: lisinopriL 20 MG TAB PO SCH (07:50)
[2019-08-20] MEDS: ASPIRIN EC 81 MG TAB PO SCH (07:53)
[2019-08-20] MEDS: ENOXAPARIN 40 MG/0.4 ML SQ SCH (07:53)
[2019-08-20] MEDS ORDERED: lisinopriL 20 MG TAB PO SCH (09:00)
[2019-08-20 10:29] VITALS: TEMP 97.6
--- NOTE | 2019-08-20 11:00 | P.DS ---
Admission Date: 08/19/19 Discharge Date: 08/20/19 Primary Care Provider: JEET Henning Disposition: ROUTINE DISCHARGE Discharge Condition: GOOD Reason for Admission: Chest pain Consultations: Cardiology-Dr. Espinal Procedures: ECHO: Ejection fraction 67% LEFT VENTRICULAR WALL MOTION: NORMAL DOPPLER/COLOR FLOW: NORMAL COMMENTS: NORMAL 2D ECHOCARDIOGRAM WITH DOPPLER. NO WALL MOTION ABONORMALITY. NO EFFUSION. Heart Catheterization: Mild to moderate CAD noted. No stent or angioplasty required. Medical man agement recommended Medical Problem List: Chest pain status post heart catheterization showing mild to moderate CAD Hypertension GERD Iron deficiency anemia Brief History of Present Illness: 49-year-old female with history of hypertension. Patient presented with chest pain. Patient with family history. Patient seen and admitted for further evaluation and treatment. Hospital Course: Patient presented with chest pain. Patient had significant family history. Patient seen by Cardiology. Cardiology recommended heart catheterization. Heart catheterization performed showed mild to moderate CAD. No need for stent or angioplasty. Cardiology recommended medical management. At discharge patient will continue with aspirin 81 mg daily, Lipitor 40 mg daily, metoprolol 25 mg 1 pill twice daily, and lisinopril 10 mg daily. Recommend to follow up with cardiology in 2-4 weeks to follow up this hospitalization and continue her care. Education on CAD provided. Patient with hypertension. Medications have been adjusted. Patient previously on labetalol. This was replaced with metoprolol. Additional medication lisinopril was added for better control. At discharge patient will continue with metoprolol 25 mg 1 pill twice daily and lisinopril 10 mg daily. Recommend to maintain blood pressure less than 140/90. Further adjustment can be done by her PCP or cardiology. Recommend to monitor her blood pressure daily. May need to hold lisinopril if blood pressure systolic less than 110. Patient with hyperlipidemia. As mentioned above patient will continue with Lipitor 40 mg daily. Recommend to recheck fasting lipid panel in 4-6 weeks to monitor progress. Patient with GERD. Patient started on Protonix. At discharge she will continue with Protonix 40 mg daily. Recommend to follow up with GI as an outpatient to further evaluate. With her history of iron deficiency anemia, will recommend that she see GI for EGD and colonoscopy evaluation. Patient with iron deficiency anemia. Patient given iron. At discharge she will continue with iron supplementation once daily. Recommend to recheck iron and CBC in 2-4 weeks to monitor her progress. Further workup with GI is recommended. Vital Signs/Physical Exam: Temp Pulse Resp BP Pulse Ox 97.6 F 58 15 111/61 98 08/20/19 08:00 08/20/19 08:00 08/20/19 08:00 08/20/19 08:00 08/20/19 08:00 General: Alert, In no apparent distress, Oriented x3, Cooperative HEENT: Atraumatic Neck: Supple Respiratory: Clear to auscultation bilaterally, Normal air movement Cardiovascular: Normal pulses, Regular rate/rhythm Gastrointestinal: Normal bowel sounds, Soft and benign, Non-distended Musculoskeletal: No erythema, No tenderness, No warmth Integumentary: No tenderness/swelling, No erythema, No warmth, No cyanosis Neurological: Normal speech, Normal strength at 5/5 x4 extr, Normal tone, Normal affect Laboratory Data at Discharge: WBC 10.3 K/uL (4.3-10.9) D 08/19/19 05:22 Hgb 9.2 g/dL (12.0-15.0) L 08/19/19 05:22 Hct 30.3 % (36.0-45.0) L 08/19/19 05:22 Plt Count 460 K/uL (152-406) H 08/19/19 05:22 PT 12.3 SECONDS (9.5-12.5) 08/18/19 08:50 INR 1.04 08/18/19 08:50 Sodium 134 mmol/L (136-145) L 08/19/19 05:22 Potassium 4.0 mmol/L (3.5-5.1) 08/19/19 05:22 BUN 12 mg/dL (7-18) 08/19/19 05:22 Creatinine 0.75 mg/dL (0.55-1.3) 08/19/19 05:22 Glucose 104 mg/dL (74-106) 08/19/19 05:22 Magnesium 1.9 mg/dL (1.8-2.4) 08/19/19 05:22 Total Bilirubin 0.2 mg/dL (0.2-1.0) 08/18/19 08:50 AST 9 U/L (15-37) L 08/18/19 08:50 ALT 14 U/L (12-78) 08/18/19 08:50 Alkaline Phosphatase 63 U/L (45-117) 08/18/19 08:50 Troponin I < 0.02 ng/mL (0.0-0.045) 08/18/19 21:14 Triglycerides 162 mg/dL (<150) H 08/19/19 05:22 Cholesterol 201 mg/dL (<200) H 08/19/19 05:22 HDL Cholesterol 64 mg/dL (40-60) H 08/19/19 05:22 Cholesterol/HDL Ratio 3.14 08/19/19 05:22 Home Medications: Aspirin [Aspirin EC 81 MG] 81 mg PO DAILY #90 tablet. 08/20/19 Atorvastatin Calcium [Lipitor] 40 mg PO BEDTIME #30 tab 08/20/19 Ferrous Sulfate [Iron] 325 mg PO DAILY #90 tablet 08/20/19 Lisinopril [Zestril] 10 mg PO DAILY #30 tablet 08/20/19 Metoprolol Tartrate [Lopressor*] 25 mg PO BID 6AM 6PM #60 tab 08/20/19 Pantoprazole [Protonix Tab*] 40 mg PO DAILY #30 tab 08/20/19 New Medications: Aspirin [Aspirin EC 81 MG] 81 mg PO DAILY #90 tablet. Ferrous Sulfate [Iron] 325 mg PO DAILY #90 tablet Atorvastatin Calcium [Lipitor] 40 mg PO BEDTIME #30 tab Metoprolol Tartrate [Lopressor*] 25 mg PO BID 6AM 6PM #60 tab Pantoprazole [Protonix Tab*] 40 mg PO DAILY #30 tab Lisinopril [Zestril] 10 mg PO DAILY #30 tablet Patient Discharge Instructions: 1. Recommend follow up with her PCP in 1 week to follow up this hospitalization. 2. Patient presented with chest pain. Patient had significant family history. Patient seen by Cardiology. Cardiology recommended heart catheterization. Heart catheterization performed showed mild to moderate CAD. No need for stent or angioplasty. Cardiology recommended medical management. At discharge patient will continue with aspirin 81 mg daily, Lipitor 40 mg daily, metoprolol 25 mg 1 pill twice daily, and lisinopril 10 mg daily. Recommend to follow up with cardiology in 2-4 weeks to follow up this hospitalization and continue her care. Education on CAD provided. 3. Patient with hypertension. Medications have been adjusted. Patient previously on labetalol. This was replaced with metoprolol. Additional medication lisinopril was added for better control. At discharge patient will continue with metoprolol 25 mg 1 pill twice daily and lisinopril 10 mg daily. Recommend to maintain blood pressure less than 140/90. Further adjustment can be done by her PCP or cardiology. Recommend to monitor her blood pressure daily. May need to hold lisinopril if blood pressure systolic less than 110. 4. Patient with hyperlipidemia. As mentioned above patient will continue with Lipitor 40 mg daily. Recommend to recheck fasting lipid panel in 4-6 weeks to monitor progress. 5. Patient with GERD. Patient started on Protonix. At discharge she will continue with Protonix 40 mg daily. Recommend to follow up with GI as an outpatient to further evaluate. With her history of iron deficiency anemia, will recommend that she see GI for EGD and colonoscopy evaluation. 6. Patient with iron deficiency anemia. Patient given iron. At discharge she will continue with iron supplementation once daily. Recommend to recheck iron and CBC in 2-4 weeks to monitor her progress. Further workup with GI is recommended. Diet: AHA Activity: Ad john Time spent managing pt's care (in minutes): 55
--- NOTE | 2019-08-20 13:03 | OP ---
Date of Procedure: 08/19/2019 Surgeon: Jurgen Espinal MD Pvc Loader: Lily Simons. Admitted to Dr. Fischer on 08/19/2019. Procedures: The patient was brought to the manager labor delivery on 08/19/2019, as an inpatient because of unstab le angina symptoms. Strong cardiac risk factors including hypertension as very strong family history . Description Of Procedure: She was prepped and draped in the routine sterile fashion. She had a 6-Fr ench sheath introduced in the right common femoral artery. Angiography there was normal. Angio-Seal was used to close the case. Fabián catheter left and right were used to select the left main and r ight main respectively. The patient was found to have about 20% to 30% left main, a 40% to 50% right main, 50% OM, some diffuse plaquing in the LAD. She was right dominant. She was hypertensive at th e beginning of the procedure. Blood pressure was 180/109. She was given 0.1 of clonidine for that. No complications. Blood Loss: 5 mL. Final Diagnosis: Moderate coronary artery disease. Plan: Plan is for medical therapy, hypertension control. Lifestyle changes, statins, aspirin. She definitely should be on a beta-ayden. I will discuss the case further with Dr. Fischer. She can go home today after 2 hours of bedrest. Anesthesia: Total conscious sedation was 30 minutes. DEBBIE/ABIGAIL Voice ID: [id number] Report ID: [id number]
[2019-08-20 13:22] VITALS: BP 128/70
--- NOTE | 2019-08-24 12:27 | EKG ---
Test Date: 2019-08-19 Test Time: 15:47:18 Accounts Payable Lead: URSZULA MEASUREMENT RESULTS: Intervals: Rate: 73 IL: 174 QRSD: 88 QT: 402 QTc: 442 [place]ola: P: 47 IL: 174 QRS: 22 T: 59 INTERPRETIVE STATEMENTS: Normal sinus rhythm Septal infarct, age undetermined Abnormal ECG Compared to ECG 08/18/2019 08:39:53 No significant changes Electronically Signed On 08-24-19 12:22:46 CDT by Jurgen Espinal
== END 2019-08-20 13:22 | disposition home or self-care (01) | DRG 287 ==
LOC: ER 08:34 → ERHOLD 10:37 → 2ND 11:23 → OBSVTOIN 08-19 08:24
PROVIDERS: ADMIT Family Medicine; ATTEND Family Medicine
PROC: 4A023N7 Measurement of Cardiac Sampling and Pressure, Left Heart, Percutaneous Approach (ICD-10-PCS; principal; 2019-08-19)
PROC: B2111ZZ Fluoroscopy of Multiple Coronary Arteries using Low Osmolar Contrast (ICD-10-PCS; 2019-08-19)
DX: I25.10 Atherosclerotic heart disease of native coronary artery without angina pectoris (principal); I10 Essential (primary) hypertension; D50.9 Iron deficiency anemia, unspecified; K21.9 Gastro-esophageal reflux disease without esophagitis; E78.5 Hyperlipidemia, unspecified; Z98.51 Tubal ligation status; Z79.82 Long term (current) use of aspirin; Z79.899 Other long term (current) drug therapy
CPT/HCPCS: 36415; 71045; 80048; 80061; 80076; 82550; 82553; 82728; 83036; 83540; 83735; 83880; 84439; 84443; 84466; 84484; 85025; 85610; 93005; 93306; 93454; 96360; 99285; C1760; C1893; G0378; J0583; J1650; J2250; J2405; J3010; J7030; J7040; U0002

== ENCOUNTER 2019-09-16 15:58 | Emergency (ER) | payer SELFPAY ==
--- OUTSIDE RECORDS SUMMARY | 2019-09-16 16:01 | XMS REPORT | Continuity of Care Document ---
:1970 Author Organization [facility] t Address [address] [place] [address] Care Team Providers Name Role Phone Unavailable Unavailable Unavailable Payers Payer Name Policy Type Policy Number Effective Date Expiration Date S ource Problems This patient has no known problems. Allergies, Adverse Reactions, Alerts Allergy Allergy Status Severity Reaction(s) Onset Inactive Treating Comm ents Source Name Type Date Date Clinician No Known DA Active U [facility] Allergie 07-31 [facility] 00:00: [address] Medications This patient has no known medications. Procedures This patient has no known procedures. Results Test Description Test Time Test Comments Results Result [facility] e Comments - US TRANSVAGINAL 2018-06-09 Patient Name: NON OB 18:29:00 DENAE DIAZ Unit No: [id number] EXAMS: CPT CODE: [id number] [place] [id number] Location: T 18 Transvaginal and transabdominal pelvic [...] MD CC: MARIA LUISA FERNANDES DO Technologist: [id number]; Radha Cortés RDMS(OB)(AB) Transcrpt Date/Tm/Trnsp: 06/09/2018 (1828) [email or web address] Orig Print D/T: S: 06/09/2018 (1831) [facility] NAME: DENAE DIAZ [id number] PHYS: [place] [address] : 1970 AGE: 47 SEX: F LOC: ZElijahERS PHONE #: [phone] EXAM DATE: 06/09/2018 STATUS: REG ER FAX #: [phone] RADIOLOGY NO: [id number] PAGE 1 Signed Report - US PELVIS 2018-06-09 Patient Name: COMPLETE 18:29:00 DENAE DIAZ Unit No: [id number] EXAMS: CPT CODE: [id number] US PELVIS COMPLETE [id number] Location: T 18 Transvaginal and transabdominal pelvic [...] MD CC: MARIA LUISA FERNANDES DO Technologist: [id number]; Radha Cortés RDMS(OB)(AB) Transcrpt Date/Tm/Trnsp: 06/09/2018 (1828) [email or web address] Orig Print D/T: S: 06/09/2018 (183) [facility] NAME: DENAE DIAZ [id number] PHYS: [place] [address] : 1970 AGE: 47 SEX: F LOC: ZLELE PHONE #: [phone] EXAM DATE: 06/09/2018 STATUS: REG ER FAX #: [phone] RADIOLOGY NO: [id number] PAGE 1 Signed Report URINALYSIS COMPLETE 2018-06-09 [...] UACULT) NO, WBC<10 Criteria Culture Chk UA [id number] 16:14:00 Test Item Value Reference Range Interpretation Comments UA RBC (test code = RBCU) >100 RBC/HPF 0-3 A UA WBC (test code = XWBCU) 5-9 WBC/HPF 0-5 A UA EPITHELIAL CELLS (test code = FEW EPI/HPF FEW EPIU) UA BACTERIA (test code = XBACU) FEW NONE URINALYSIS [id number] 15:58:00 Test Item Value Reference Range Interpretation [...] code Criteria Culture Chk = UACULT) UA [id number] 15:58:00 Test Item Value Reference Range Interpretation Comments UA RBC (test code = RBCU) RBC/HPF 0-3 UA WBC (test code = XWBCU) WBC/HPF 0-5 UA EPITHELIAL CELLS (test code = EPI/HPF FEW EPIU) UA BACTERIA (test code = XBACU) NONE URINALYSIS [id number] 15:58:00 Test Item Value Reference Range Interpretation [...] code Criteria Culture Chk = UACULT) UA [id number] 15:58:00 Test Item Value Reference Range Interpretation Comments UA RBC (test code = RBCU) RBC/HPF 0-3 UA WBC (test code = XWBCU) WBC/HPF 0-5 UA EPITHELIAL CELLS (test code = EPI/HPF FEW EPIU) UA BACTERIA (test code = XBACU) NONE COMPREHENSIVE METABOLIC [id number] 15:58:00 Test Item Value Reference Range Interpretation [...] UNITS/L 38-126 N (test code = ALKP) [id number] 15:58:00 Test Item Value Reference Range Interpretation Comments LIPASE (test code = LIP) 35 UNITS/L 23-300 N HCG SERUM [id number] 15:58:00 Test Item Value Reference Range Interpretation Comments HCG SERUM QUAL (test code = HCGQL) NEGATIVE NEGATIVE A COMPREHENSIVE METABOLIC [id number] 15:53:00 Test Item Value Reference Range Interpretation [...] PHOSPHATASE (test code = UNITS/L 38-126 ALKP) [id number] 15:53:00 Test Item Value Reference Range Interpretation Comments LIPASE (test code = LIP) UNITS/L 23-300 HCG SERUM [id number] 15:53:00 Test Item Value Reference Range Interpretation Comments HCG SERUM QUAL (test code = HCGQL) NEGATIVE NEGATIVE A CBC W/AUTO [id number] 15:39:00 Test Item Value Reference Range Interpretation [...]
--- NOTE | 2019-09-16 18:11 | RAD REPORT ---
EXAM DESCRIPTION: RAD - Chest Single View - 09/16/2019 6:04 pm CLINICAL HISTORY: COUGH Chest pain. COMPARISON: Chest Single View dated 08/18/2019; CHEST SINGLE VIEW dated 01/13/2008; CHEST PA AND LAT 2 VIEW dated 06/02/2007 FINDINGS: Portable technique limits examination quality. The lungs are grossly clear. The heart is normal in size. No displaced fractures. IMPRESSION: No acute intrathoracic process suspected.
--- NOTE | 2019-09-16 18:15 | ER ---
Nurse's Notes [facility] Name: Sally Navarro Age: 49 yrs Sex: Female : 1970 Arrival Date: 09/16/2019 Time: 16:03 Bed 17 Private MD: Diagnosis: Viral infection, unspecified Presentation: 09/15 16:14 Chief complaint: Patient states: Cough, congestion, sore throat for 10 days. + N/V/D. ll1 No fever. Coronavirus screen: Patient reports a cough. Patient denies shortness of breath or difficulty breathing. Patient denies measured and/or subjective temperature greater than 100.4F prior to today's visit. Patient denies travel on a cruise ship or to a country the [facility] currently lists as an affected area. Patient denies contact with known and/or suspected case of COVID-19. Patient was placed back in the lobby due to no available rooms at this time. Patient was instructed to always wear their mask and to isolate themselves as much as possible from others in the lobby. Ebola Screen: Patient denies travel to an Ebola-affected area in the 21 days before illness onset. Initial Sepsis Screen: Does the patient meet any 2 criteria? No. Patient's initial sepsis screen is negative. Risk Assessment: Do you want to hurt yourself or someone else? Patient reports no desire to harm self or others. Onset of symptoms was September 06, 2019. 16:14 Method Of Arrival: Ambulatory ll1 16:14 Acuity: RONA 3 ll1 18:26 Initial Sepsis Screen: Does the patient have a suspected source of infection? No. Patient's initial sepsis screen is negative. Historical: - Allergies: 16:16 No Known Allergies; ll1 - PMHx: 16:16 Hypertension; ll1 - PSHx: 16:16 Tubal ligation; Knee surgery; ll1 - Immunization history:: Flu vaccine is up to date. - Social history:: Smoking status: Patient denies any tobacco usage or history of. Patient uses alcohol, but reports only rare drinking. only on a social basis. Patient/guardian denies using street drugs. Screenin:25 Abuse screen: Denies threats or abuse. Nutritional screening: No deficits noted. Tuberculosis screening: No symptoms or risk factors identified. Fall Risk None identified. Assessment: 17:00 General: Appears uncomfortable, Behavior is calm, cooperative, appropriate for age. Pain: Denies pain. Neuro: Level of Consciousness is awake, alert, obeys commands, Oriented to person, place, time, situation, Appropriate for age. Cardiovascular: Capillary refill < 3 seconds Patient's skin is warm and dry. Respiratory: Reports cough that is productive, Airway is patent Respiratory effort is even, unlabored, Respiratory pattern is regular, symmetrical. GI: Reports nausea, vomiting. EENT: Nares with drainage noted. Derm: Skin is intact, is healthy with good turgor, Skin is dry. Vital Signs: 16:14 BP 132 / 101; Pulse 67; Resp 18; Temp 98.3; Pulse Ox 100% ; Pain 7/10; ll1 ED Course: 16:03 Patient arrived in ED. 1 16:15 Triage completed. [facility] 16:16 Arm band placed on Patient notified of wait time. [facility] 16:59 Lucio Josue PA is PHCP. [facility] 16:59 Sean Yanez MD is Attending Physician. [facility] 17:57 Mary Pendleton, RN is Primary Nurse. 18:04 XRAY CXR (1 view) In Process Unspecified. EDHI 18:26 Patient has correct armband on for positive identification. Placed in gown. Bed in low ah position. Call light in reach. 18:27 No provider procedures requiring assistance completed. Patient did not have IV access ah during this emergency room visit. Administered Medications: No medications were administered Outcome: 18:14 Discharge ordered by . [facility] 18:26 Discharged to home ambulatory. 18:26 Condition: good 18:26 Discharge instructions given to patient, Instructed on discharge instructions, follow up and referral plans. Demonstrated understanding of instructions, follow-up care, medications, Prescriptions given X 2. 18:27 Patient left the ED. Addendum: 09/21/2019 12:58 Addendum: COVID-19 Result: Negative result given to RN to notify pt. Contacted by: Blas Wu RN. Attempted to contact pt regarding negative COVID-19 swab results. Left voice mail. Signatures: Dispatcher [employer] Carey Page RN RN [facility] Lucio oJsue PA PA [facility] Eric Cote [facility] Mary Pendleton RN RN Jesus Diaz, RN RN ll1
--- NOTE | 2019-09-16 18:15 | EDPHYS ---
Physician Documentation [facility] Name: Sally Navarro Age: 49 yrs Sex: Female : 1970 Arrival Date: 09/16/2019 Time: 16:03 Bed 17 Private MD: ED Physician Sean Yanez HPI: 09/15 17:37 This 49 yrs old Female presents to ER via Ambulatory with complaints of Cold jr8 Symptoms, Nausea/Vomiting/Diarrhea. 17:37 Patient stated that she has had cold symptoms for about 1 week but now has n/v/d as jr8 well. Severity of symptoms: At their worst the symptoms were mild in the emergency department the symptoms are unchanged. The patient has not experienced similar symptoms in the past. The patient has not recently seen a physician. Historical: - Allergies: 16:16 No Known Allergies; ll1 - PMHx: 16:16 Hypertension; ll1 - PSHx: 16:16 Tubal ligation; Knee surgery; ll1 - Immunization history:: Flu vaccine is up to date. - Social history:: Smoking status: Patient denies any tobacco usage or history of. Patient uses alcohol, but reports only rare drinking. only on a social basis. Patient/guardian denies using street drugs. ROS: 17:37 Eyes: Negative for injury, pain, redness, and discharge, Neck: Negative for injury, jr8 pain, and swelling, Cardiovascular: Negative for chest pain, palpitations, and edema, Back: Negative for injury and pain, MS/Extremity: Negative for injury and deformity, Skin: Negative for injury, rash, and discoloration, Neuro: Negative for headache, weakness, numbness, tingling, and seizure. 17:37 ENT: Positive for rhinorrhea, sinus congestion, sore throat. 17:37 Respiratory: Positive for cough, Negative for dyspnea on exertion, shortness of breath, sputum production, wheezing. 17:37 Abdomen/GI: Positive for nausea, vomiting, and diarrhea, Negative for abdominal pain. Exam: 17:37 Eyes: Pupils equal round and reactive to light, extra-ocular motions intact. Lids and jr8 lashes normal. Conjunctiva and sclera are non-icteric and not injected. Cornea within normal limits. Periorbital areas with no swelling, redness, or edema. ENT: Nares patent. No nasal discharge, no septal abnormalities noted. Tympanic membranes are normal and external auditory canals are clear. Oropharynx with no redness, swelling, or masses, exudates, or evidence of obstruction, uvula midline. Mucous membranes moist. Neck: Trachea midline, no thyromegaly or masses palpated, and no cervical lymphadenopathy. Supple, full range of motion without nuchal rigidity, or vertebral point tenderness. No Meningismus. Cardiovascular: Regular rate and rhythm with a normal S1 and S2. No gallops, murmurs, or rubs. Normal PMI, no JVD. No pulse deficits. Respiratory: Lungs have equal breath sounds bilaterally, clear to auscultation and percussion. No rales, rhonchi or wheezes noted. No increased work of breathing, no retractions or nasal flaring. Abdomen/GI: Soft, non-tender, with normal bowel sounds. No distension or tympany. No guarding or rebound. No evidence of tenderness throughout. Back: No spinal tenderness. No costovertebral tenderness. Full range of motion. Skin: Warm, dry with normal turgor. Normal color with no rashes, no lesions, and no evidence of cellulitis. MS/ Extremity: Pulses equal, no cyanosis. Neurovascular intact. Full, normal range of motion. Neuro: Awake and alert, GCS 15, oriented to person, place, time, and situation. Cranial nerves II-XII grossly intact. Motor strength 5/5 in all extremities. Sensory grossly intact. Cerebellar exam normal. Normal gait. Vital Signs: 16:14 BP 132 / 101; Pulse 67; Resp 18; Temp 98.3; Pulse Ox 100% ; Pain 7/10; ll1 MDM: 17:00 Patient medically screened. jr8 18:12 Data reviewed: vital signs, nurses notes, lab test result(s), radiologic studies, plain jr8 films. Data interpreted: Pulse oximetry: on room air is 100 %. Interpretation: normal. Counseling: I had a detailed discussion with the patient and/or guardian regarding: the historical points, exam findings, and any diagnostic results supporting the discharge/admit diagnosis, lab results, radiology results, the need for outpatient follow up, a family practitioner, to return to the emergency department if symptoms worsen or persist or if there are any questions or concerns that arise at home. ED course: Patient counseled on COVID and need to isolate until swab comes back. If breathing problems were to occur to come back for further evaluation . 09/15 17:34 Order name: COVID-19 jr8 09/15 17:34 Order name: XRMARIBELL CXR (1 view); Complete Time: 18:12 jr8 Administered Medications: No medications were administered Disposition: 19:06 Co-signature as Attending Physician, Sean Yanez MD I agree with the assessment and kdr plan of care. Disposition: 09/16/19 18:14 Discharged to Home. Impression: Viral infection, unspecified. - Condition is Stable. - Discharge Instructions: COVID-19. - Prescriptions for Prednisone 20 mg Oral Tablet - take 1 tablet by ORAL route once daily for 5 days; 5 tablet. Zofran 4 mg Oral Tablet - take 1 tablet by ORAL route every 12 hours As needed; 20 tablet. - Medication Reconciliation Form, Thank You Letter, Antibiotic Education, Prescription Opioid Use form. - Follow up: Private Physician; When: 1 week; Reason: Recheck today's complaints, Continuance of care, Re-evaluation by your physician. - Problem is new. - Symptoms have improved. Signatures: Dispatcher [employer] EDKS Sean Yanez MD MD [facility] Lucio Josue PA PA jr8 Mary Pendleton RN RN Jesus Diaz RN RN ll1 Corrections: (The following items were deleted from the chart) 18:27 18:14 09/16/2019 18:14 Discharged to Home. Impression: Viral infection, unspecified. Condition is Stable. Forms are Medication Reconciliation Form, Thank You Letter, Antibiotic Education, Prescription Opioid Use. Follow up: Private Physician; When: 1 week; Reason: Recheck today's complaints, Continuance of care, Re-evaluation by your physician. Problem is new. Symptoms have improved. jr8
[2019-09-16 19:48] VITALS: BP 132/101; TEMP 98.3; O2SAT 100
== END 2019-09-16 18:27 | disposition home or self-care (01) ==
LOC: ER 15:58
DX: B34.9 Viral infection, unspecified (principal); Z20.828 Contact with and (suspected) exposure to other viral communicable diseases; I10 Essential (primary) hypertension
CPT/HCPCS: 71045; 99283; U0001

== ENCOUNTER 2019-11-28 11:21 | Emergency (ER) | payer SELFPAY ==
--- OUTSIDE RECORDS SUMMARY | 2019-11-28 11:28 | XMS REPORT | Continuity of Care Document ---
:1970 Author Organization [facility] t Address [address] [place] [address] Care Team Providers Name Role Phone Unavailable Unavailable Unavailable Payers Payer Name Policy Type Policy Number Effective Date Expiration Date S ource Problems This patient has no known problems. Allergies, Adverse Reactions, Alerts Allergy Allergy Status Severity Reaction(s) Onset Inactive Treating Comm ents Source Name Type Date Date Clinician No Known DA Active U [facility] 07-31 [facility] 00:00: [address] Medications This patient has no known medications. Procedures This patient has no known procedures. Results Test Description Test Time Test Comments Results Result [facility] e Comments - US TRANSVAGINAL 2018-06-09 Patient Name: NON OB 18:29:00 DENAE DIAZ Unit No: [id number] EXAMS: CPT CODE: [id number] [place] [id number] Location: T 18 Transvaginal and transabdominal pelvic [...] MD CC: MARIA LUISA FERNANDES DO Technologist: [id number]; Radha Cortés RDMS(OB)(AB) Transcrpt Date/Tm/Trnsp: 06/09/2018 (1828) [id number] Orig Print D/T: S: 06/09/2018 (183) [facility] NAME: DENAE DIAZ [id number] [place] PHYS: [place] [address] : 1970 AGE: 47 SEX: F LOC: ZElijahERS PHONE #: [phone] EXAM DATE: 06/09/2018 STATUS: REG ER FAX #: [phone] RADIOLOGY NO: [id number] PAGE 1 Signed Report - US PELVIS 2018-06-09 Patient Name: COMPLETE 18:29:00 DENAE DIAZ Unit No: [id number] EXAMS: CPT CODE: [id number] US PELVIS COMPLETE [id number] Location: T 18 Transvaginal and transabdominal pelvic [...] MD CC: MARIA LUISA FERNANDES DO Technologist: [id number]; Radha Cortés RDMS(OB)(AB) Transcrpt Date/Tm/Trnsp: 06/09/2018 (1828) [email or web address] Orig Print D/T: S: 06/09/2018 (183) [facility] NAME: JOEDENAE [address] [address] PHYS: [place] [address] : 1970 AGE: 47 SEX: F LOC: ZElijahERS PHONE #: [phone] EXAM DATE: 06/09/2018 STATUS: REG ER FAX #: [phone] RADIOLOGY NO: [id number] PAGE 1 Signed Report URINALYSIS COMPLETE 2018-06-09 [...] UACULT) NO, WBC<10 Criteria Culture Chk UA [id number] 16:14:00 Test Item Value Reference Range Interpretation Comments UA RBC (test code = RBCU) >100 RBC/HPF 0-3 A UA WBC (test code = XWBCU) 5-9 WBC/HPF 0-5 A UA EPITHELIAL CELLS (test code = FEW EPI/HPF FEW EPIU) UA BACTERIA (test code = XBACU) FEW NONE URINALYSIS [id number] 15:58:00 Test Item Value Reference Range Interpretation [...] code Criteria Culture Chk = UACULT) UA [id number] 15:58:00 Test Item Value Reference Range Interpretation Comments UA RBC (test code = RBCU) RBC/HPF 0-3 UA WBC (test code = XWBCU) WBC/HPF 0-5 UA EPITHELIAL CELLS (test code = EPI/HPF FEW EPIU) UA BACTERIA (test code = XBACU) NONE URINALYSIS [id number] 15:58:00 Test Item Value Reference Range Interpretation [...] code Criteria Culture Chk = UACULT) UA [id number] 15:58:00 Test Item Value Reference Range Interpretation Comments UA RBC (test code = RBCU) RBC/HPF 0-3 UA WBC (test code = XWBCU) WBC/HPF 0-5 UA EPITHELIAL CELLS (test code = EPI/HPF FEW EPIU) UA BACTERIA (test code = XBACU) NONE COMPREHENSIVE METABOLIC [id number] 15:58:00 Test Item Value Reference Range Interpretation [...] UNITS/L 38-126 N (test code = ALKP) [id number] 15:58:00 Test Item Value Reference Range Interpretation Comments LIPASE (test code = LIP) 35 UNITS/L 23-300 N HCG SERUM [id number] 15:58:00 Test Item Value Reference Range Interpretation Comments HCG SERUM QUAL (test code = HCGQL) NEGATIVE NEGATIVE A COMPREHENSIVE METABOLIC [id number] 15:53:00 Test Item Value Reference Range Interpretation [...] PHOSPHATASE (test code = UNITS/L 38-126 ALKP) [id number] 15:53:00 Test Item Value Reference Range Interpretation Comments LIPASE (test code = LIP) UNITS/L 23-300 HCG SERUM [id number] 15:53:00 Test Item Value Reference Range Interpretation Comments HCG SERUM QUAL (test code = HCGQL) NEGATIVE NEGATIVE A CBC W/AUTO [id number] 15:39:00 Test Item Value Reference Range Interpretation [...]
[2019-11-28 12:05] LABS: Absolute Lymphocytes (CBC) 2.3 K/uL (0.7-4.9); Basophils % 1.2 % (0-1.3); Hematocrit 27.7 % (36.0-45.0); Lymphocytes % 26.4 % (15.3-44.8); MPV 6.9 fL (7.6-11.3)
[2019-11-28 12:19] LABS: Potassium 3.8 mmol/L (3.5-5.1)
[2019-11-28 12:23] LABS: Urine Blood NEGATIVE (NEG); Urine Glucose NEGATIVE (NEG); Urine Protein NEGATIVE (NEG); Urine Specific Gravity 1.025 (1.005-1.030)
[2019-11-28 12:33] LABS: Urine Bacteria LOADED /HPF (<20); Urine Culture Reflex Order REFLEXED; Urine RBC <5 /HPF (NONE SEEN)
[2019-11-28 12:43] LABS: Platelet Estimate INCR; White Blood Cell Scan OK (OK)
[2019-11-28 12:44] LABS: Blood Morphology Comment NOTED (NOT SEEN); Hypochromasia 2+; Polychromasia SLIGHT; Stomatocytes 1+
--- NOTE | 2019-11-28 13:29 | RAD REPORT ---
EXAM DESCRIPTION: US - Transvaginal Study Probe - 11/28/2019 1:01 pm CLINICAL HISTORY: Vaginal bleeding COMPARISON: none FINDINGS: The uterus measures 11 x 5 x 6cm. A 2 centimeter isoechoic structure is present within the uterine fundus probably a fibroid. Additional smaller fibroids seen. The endometrial stripe measures 1 centimeter. A nabothian cyst is present within cervix. A 2.5 centimeter left ovarian cyst. The right ovary is normal in size and echotexture. No abnormality visualized within and the adnexae. No significant free fluid is seen. IMPRESSION: Uterine fibroids
--- NOTE | 2019-11-28 13:32 | EDPHYS ---
Physician Documentation [facility] Name: Sally Navarro Age: 49 yrs Sex: Female : 1970 Arrival Date: 11/28/2019 Time: 11:23 Bed 20 Private MD: ED Physician Riki Doyle HPI: 11/27 13:45 This 49 yrs old Female presents to ER via Ambulatory with complaints of kb Vaginal Bleeding. 13:45 The patient presents with vaginal bleeding that is moderate, heavy. Onset: The kb symptoms/episode began/occurred last week. Modifying factors: The symptoms are alleviated by nothing, the symptoms are aggravated by nothing. Associated signs and symptoms: Pertinent positives: vaginal bleeding, Pertinent negatives: constipation, cramping, diarrhea, dyspareunia, dysuria, fever, hematuria, nausea, urinary frequency, vaginal discharge, vomiting. Severity of symptoms: At their worst the symptoms were moderate, in the emergency department the symptoms have improved, mildly. The patient has not experienced similar symptoms in the past. The patient has not recently seen a physician. Pt reports she didn't have a period for 5 months, then had one for a full month so she went to Dr Aceves thinking she was going through the change. States he tested her hormones and said that wasn't it and then did a biopsy that came back negative. States she has been having moderate to heavy bleeding since Thursday, called Dr Aceves's office and was told to come here.. 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 - Social history:: Smoking status: Patient denies any tobacco usage or history of. ROS: 13:44 Constitutional: Negative for fever, chills, and weight loss, Cardiovascular: Negative kb for chest pain, palpitations, and edema, Respiratory: Negative for shortness of breath, cough, wheezing, and pleuritic chest pain, Abdomen/GI: Negative for abdominal pain, nausea, vomiting, diarrhea, and constipation, MS/Extremity: Negative for injury and deformity, Skin: Negative for injury, rash, and discoloration, Neuro: Negative for headache, weakness, numbness, tingling, and seizure. 13:44 : Positive for vaginal bleeding. Exam: 13:44 Constitutional: This is a well developed, well nourished patient who is awake, alert, kb and in no acute distress. Head/Face: Normocephalic, atraumatic. Chest/axilla: Normal chest wall appearance and motion. Nontender with no deformity. No lesions are appreciated. Cardiovascular: Regular rate and rhythm with a normal S1 and S2. No gallops, murmurs, or rubs. Normal PMI, no JVD. No pulse deficits. Respiratory: Lungs have equal breath sounds bilaterally, clear to auscultation and percussion. No rales, rhonchi or wheezes noted. No increased work of breathing, no retractions or nasal flaring. Abdomen/GI: Soft, non-tender, with normal bowel sounds. No distension or tympany. No guarding or rebound. No evidence of tenderness throughout. Skin: Warm, dry with normal turgor. Normal color with no rashes, no lesions, and no evidence of cellulitis. MS/ Extremity: Pulses equal, no cyanosis. Neurovascular intact. Full, normal range of motion. Neuro: Awake and alert, GCS 15, oriented to person, place, time, and situation. Cranial nerves II-XII grossly intact. Motor strength 5/5 in all extremities. Sensory grossly intact. Cerebellar exam normal. Normal gait. Vital Signs: 11:29 BP 170 / 107; Pulse 84; Resp 17; Temp 98.4; Pulse Ox 97% ; Weight 99.79 kg; Pain 5/10; jl7 12:23 BP 162 / 93; Pulse 68; Resp 15 S; Pulse Ox 98% on R/A; ca1 13:43 BP 174 / 97; Pulse 70; Resp 16; Temp 98.5; Pulse Ox 99% ; bp MDM: 11:33 Patient medically screened. kb 13:31 Data reviewed: vital signs, nurses notes. Data interpreted: Pulse oximetry: on room air kb is 98 %. Interpretation: normal. Counseling: I had a detailed discussion with the patient and/or guardian regarding: the historical points, exam findings, and any diagnostic results supporting the discharge/admit diagnosis, lab results, radiology results, the need for outpatient follow up, an OB/Gyne specialist, to return to the emergency department if symptoms worsen or persist or if there are any questions or concerns that arise at home. 11/27 11:34 Order name: Basic Metabolic Panel kb 11/27 11:34 Order name: CBC with Diff kb 11/27 12:08 Order name: CBC with Automated Diff; Complete Time: 12:45 EDTX 11/27 12:15 Order name: Urine Microscopic Only dh3 11/27 12:16 Order name: Urine Dipstick--Ancillary (enter results) bd 11/27 12:16 Order name: Urine --Ancillary (enter results) 11/27 11:34 Order name: IV Saline Lock; Complete Time: 11:57 kb 11/27 12:19 Order name: Basic Metabolic Panel; Complete Time: 12:19 EDTX 11/27 12:23 Order name: Urine --Ancillary; Complete Time: 12:24 EDTX 11/27 12:23 Order name: Urine Dipstick-Ancillary; Complete Time: 12:24 EDTX 11/27 12:24 Order name: US Transvaginal Study (Probe); Complete Time: 13:31 kb 11/27 12:33 Order name: Urine Microscopic Only; Complete Time: 12:39 EDTX 11/27 12:44 Order name: CBC Smear Scan; Complete Time: 12:45 EDTX 11/27 12:50 Order name: Urine Culture [facility] 11/27 11:34 Order name: Labs collected and sent; Complete Time: 11:57 kb 11/27 11:34 Order name: NPO; Complete Time: 11:38 kb 11/27 11:34 Order name: Urine Dipstick-Ancillary (obtain specimen); Complete Time: 12:13 kb Administered Medications: No medications were administered Disposition: 11/28/19 13:32 Discharged to Home. Impression: Leiomyoma of uterus. - Condition is Stable. - Discharge Instructions: Uterine Fibroids, [id number]. - Medication Reconciliation Form, Thank You Letter, Antibiotic Education, Prescription Opioid Use form. - Follow up: Emergency Department; When: As needed; Reason: Worsening of condition. Follow up: Private Physician; When: 2 - 3 days; Reason: Recheck today's complaints, Continuance of care, Re-evaluation by your physician. Follow up: Elinor Rangel MD; When: 1 - 2 days; Reason: Recheck today's complaints. Addendum: 11/29/2019 13:50 Co-signature as Attending Physician, Riki Doyle MD I agree with the assessment and c jacobs plan of care. Signatures: Dispatcher [employer] EDMS Chase Mirta, INSTRUMENT ADJUSTER-C INSTRUMENT ADJUSTER-Ckb Riki Doyle MD MD cha Leal, Jahala, RN RN jl7 Corrections: (The following items were deleted from the chart) 11/27 13:36 13:32 11/28/2019 13:32 Discharged to Home. Impression: Leiomyoma of uterus. Condition kb is Stable. Forms are Medication Reconciliation Form, Thank You Letter, Antibiotic Education, Prescription Opioid Use. Follow up: Emergency Department; When: As needed; Reason: Worsening of condition. Follow up: Private Physician; When: 2 - 3 days; Reason: Recheck today's complaints, Continuance of care, Re-evaluation by your physician. kb 13:43 13:36 11/28/2019 13:32 Discharged to Home. Impression: Leiomyoma of uterus. Condition jl7 is Stable. Discharge Instructions: Uterine Fibroids, [id number]. Forms are Medication Reconciliation Form, Thank You Letter, Antibiotic Education, Prescription Opioid Use. Follow up: Emergency Department; When: As needed; Reason: Worsening of condition. Follow up: Private Physician; When: 2 - 3 days; Reason: Recheck today's complaints, Continuance of care, Re-evaluation by your physician. Follow up: Elinor Rangel; When: 1 - 2 days; Reason: Recheck today's complaints. kb
--- NOTE | 2019-11-28 13:32 | ER ---
Nurse's Notes [facility] Name: Sally Navarro Age: 49 yrs Sex: Female : 1970 Arrival Date: 11/28/2019 Time: 11:23 Bed 20 Private MD: Diagnosis: Leiomyoma of uterus Presentation: 11/27 11:29 Chief complaint: Patient states: Dr. corbin did a biopsy 2 weeks ago, started bleeding jl7 very heavy on Thursday, some cotton or something came out of me last night and I am still bleeding really heavy. Coronavirus screen: Client denies travel out of the [place] in the last 14 days. At this time, the client does not indicate any symptoms associated with coronavirus-19. Ebola Screen: No symptoms or risks identified at this time. Initial Sepsis Screen: Does the patient meet any 2 criteria? No. Patient's initial sepsis screen is negative. Does the patient have a suspected source of infection? No. Patient's initial sepsis screen is negative. Risk Assessment: Do you want to hurt yourself or someone else? Patient reports no desire to harm self or others. Onset of symptoms was November 25, 2019. Care prior to arrival: None. 11:29 Method Of Arrival: Ambulatory jl7 11:29 Acuity: RONA 3 jl7 Triage Assessment: 11:32 General: Appears in no apparent distress. uncomfortable, Behavior is calm, cooperative, jl7 appropriate for age. Pain: Complains of pain in right lower quadrant and left lower quadrant Pain currently is 5 out of 10 on a pain scale. : Reports vaginal bleeding that is heavy flow. 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 - Social history:: Smoking status: Patient denies any tobacco usage or history of. Screenin:37 Abuse screen: Denies threats or abuse. Denies injuries from another. Nutritional bp screening: No deficits noted. Tuberculosis screening: No symptoms or risk factors identified. Fall Risk None identified. Assessment: 11:37 General: SEE TRIAGE NOTE. bp 11:57 : ca1 12:23 Reassessment: Patient appears in no apparent distress at this time. Patient and/or ca1 family updated on plan of care and expected duration. Pain level reassessed. Patient is alert, oriented x 3, equal unlabored respirations, skin warm/dry/pink. 12:40 Reassessment: US at bedside. ca1 13:43 Reassessment: PT D/C HOME AMBULATORY, DX WITH LEIOMYOMA OF UTERUS. bp Vital Signs: 11:29 BP 170 / 107; Pulse 84; Resp 17; Temp 98.4; Pulse Ox 97% ; Weight 99.79 kg; Pain 5/10; jl7 12:23 BP 162 / 93; Pulse 68; Resp 15 S; Pulse Ox 98% on R/A; ca1 13:43 BP 174 / 97; Pulse 70; Resp 16; Temp 98.5; Pulse Ox 99% ; bp ED Course: 11:23 Patient arrived in ED. as 11:26 Mirta Stone FNP-C [facility] kb 11:26 Riki Doyle MD is Attending Physician. kb 11:31 Triage completed. jl7 11:32 Arm band placed on right wrist. jl7 11:36 Contreras Bradley, AMIE is Primary Nurse. bp 11:37 Patient has correct armband on for positive identification. Bed in low position. Call bp light in reach. Side rails up X2. 11:57 No provider procedures requiring assistance completed. Initial lab(s) drawn, by co, ca1 sent to lab. Inserted saline lock: 20 gauge in right wrist, using aseptic technique. Blood collected. 12:13 Urine collected: clean catch specimen, cloudy. ca1 12:19 Urine Microscopic Only Sent. dh3 13:02 US Transvaginal Study (Probe) In Process Unspecified. EDMS 13:36 Elinor Rangel MD is Referral Physician. kb 13:43 IV discontinued, intact, bleeding controlled, No redness/swelling at site. Pressure jl7 dressing applied. Administered Medications: No medications were administered Outcome: 13:32 Discharge ordered by . kb 13:42 Discharged to home ambulatory. jl7 13:42 Condition: stable 13:42 Discharge instructions given to patient, Instructed on discharge instructions, follow up and referral plans. Demonstrated understanding of instructions, follow-up care. 13:43 Patient left the ED. jl7 Addendum: 12/03/2019 09:10 Addendum: Culture Results: Positive urine culture. Phone call Attempt #1 Spoke to pt's a a5 family and family will let pt know to call back. 12:37 Addendum: Culture Results: Prescription called-in to pharmacy of choice. [facility] in [place], [place] per pt's request. Called in Macrobid 100mg PO BID per Yeny Pulido NP. Signatures: Dispatcher [employer] EDCA Mirta Stone, RUBBING BED OPERATOR-C RUBBING BED OPERATOR-Ckb Kourtney Cano Audri, RN RN aa5 Cody Flanagan RN RN jl7 Jammie Mari 3 Contreras Bradley RN RN bp Mabel Radford RN RN ca1
[2019-11-28 14:34] VITALS: BP 174/97; TEMP 98.5; O2SAT 99
== END 2019-11-28 13:43 | disposition home or self-care (01) ==
LOC: ER 11:21
DX: D25.9 Leiomyoma of uterus, unspecified (principal); I10 Essential (primary) hypertension
CPT/HCPCS: 36415; 76830; 80048; 81003; 81015; 81025; 85025; 87077; 87086; 87088; 87186; 99283

== ENCOUNTER 2020-09-22 06:18 | Emergency (ER) | payer SELFPAY ==
--- OUTSIDE RECORDS SUMMARY | 2020-09-22 06:21 | XMS REPORT | Continuity of Care Document ---
:1970 Author Organization [facility] t Address [address] [place] [address] Care Team Providers Name Role Phone Pcp MD Primary Care Physician Unavailable Payers Payer Name Policy Type Policy Number Effective Date Expiration Date S ource Problems This patient has no known problems. Allergies, Adverse Reactions, Alerts Allergy Allergy Status Severity Reaction(s) Onset Inactive Treating Comm ents Source Name Type Date Date Clinician No Known DA Active U [facility] All[facility]ie 07-31 [facility] 00:00: [address] Social History Social Habit Start Date Stop Date Quantity Comments Source History [facility] Std Drinks [facility] History [facility] - Alcohol Binge Medical Miguelito ter Sex Assigned At [facility] Tobacco use and 2018-09-08 2018-09-08 Never used [facility] k[facility] - exposure 00:00:00 [facility]:00:00 [facility] Center Alcohol intake 2018-09-08 2018-09-08 [facility] non-drinker of Medical Ce nter alcohol (finding) History [facility] 2018-09-08 2018-09-[address] [facility] - Alcohol Frequency 00:00:00 00:00:00 [facility] Center Smoking Status Start Date Stop Date Source Never smoker [facility] Medications This patient has no known medications. Procedures This patient has no known procedures. Plan of Care Planned Activity Planned Date Details Comments Source Future Scheduled 2019-11-[address] [facility] - Test 00:00:00 (#1) [code = [facility] INFLUENZA VACCINE (#1)] Future Scheduled 2016-08-[address] [facility] Test 00:00:00 (procedure) [code = [facility] 25990147] Future Scheduled 1992-08-[address] [facility] - Test 00:00:00 malignant neoplasm Medical C enter of cervix (procedure) [code = 601892342] Results Test Description Test Time Test Comments Results Result Sourc e Comments CT, BRAIN, WITHOUT 2018-09-08 Reason for FINAL REPORT PATIENT CONTRAST 20:40:00 exam:->HEADACHEW ID: [id number] CT, hat is the BRAIN, WITHOUT patient's CONTRAST CLINICAL sedation INDICATION: requirement?->No HEADACHEright SedationIs the parietal COMPARISON: patient None TECHNIQUE: ?->Unkno Noncontrast axial CT wn imaging of the brain and skull. DOSE REDUCTION: Dose modulation, iterative reconstruction, and/or weight-based adjustment of the mA/kV was utilized to reduce the radiation dose to as low as reasonably achievable. FINDINGS:Cerebral parenchyma: Unremarkable.Midline structures: Normally positioned.Cerebellu m and brainstem: Normal.Ventricles: Normal volume.Extra-axial spaces: Unremarkable. Calvarium and skull base: Intact.Paranasal sinuses and mastoid air cells: Visible chambers are clear.Orbital contents: Included portions unremarkable. Additional findings: None. IMPRESSION: Normal brain. If there is persistent clinical concern for intracranial pathology, MR examination is recommended for further characterization. Signed: JR Brown Robert MDReport Verified Date/Time: 09/08/2018 20:40:03 Reading Location: [facility] B1 C013V Neuro Reading Room - US TRANSVAGINAL 2018-06-09 Patient Name: NON OB 18:29:00 DENAE DIAZ Unit No: [id number] EXAMS: CPT CODE: [id number] [place] [id number] Location: T 18 Transvaginal and transabdominal pelvic [...] MD CC: MARIA LUISA FERNANDES DO Technologist: [id number]; Radha Cortés RDMS(OB)(AB) Transcrpt Date/Tm/Trnsp: 06/09/2018 (1828) [email or web address] Orig Print D/T: S: 06/09/2018 (183) [facility] NAME: DENAE DIAZ [id number] PHYS: MAR[place] [address] : 1970 AGE: 47 SEX: F LOC: ZElijahERS PHONE #: [phone] EXAM DATE: 06/09/2018 STATUS: REG ER FAX #: [phone] RADIOLOGY NO: [id number] PAGE 1 Signed Report - US PELVIS 2018-06-09 Patient Name: COMPLETE 18:29:00 DENAE DIAZ Unit No: [id number] EXAMS: CPT CODE: [id number] US PELVIS COMPLETE [id number] Location: T 18 Transvaginal and transabdominal pelvic [...] MD CC: MARIA LUISA FERNANDES DO Technologist: [id number]; Radha Cortés RDMS(OB)(AB) Transcrpt Date/Tm/Trnsp: 06/09/2018 (1828) [email or web address] Orig Print D/T: S: 06/09/2018 (1832) [facility] NAME: DENAE DIAZ [id number] PHYS: ENNCH - [place] [address] : 1970 AGE: 47 SEX: F LOC: LISANDRA PHONE #: [phone] EXAM DATE: 06/09/2018 STATUS: REG ER FAX #: [phone] RADIOLOGY NO: [id number] PAGE 1 Signed Report URINALYSIS COMPLETE 2018-06-09 [...] UACULT) NO, WBC<10 Criteria Culture Chk UA [id number] 16:14:00 Test Item Value Reference Range Interpretation Comments UA RBC (test code = RBCU) >100 RBC/HPF 0-3 A UA WBC (test code = XWBCU) 5-9 WBC/HPF 0-5 A UA EPITHELIAL CELLS (test code = FEW EPI/HPF FEW EPIU) UA BACTERIA (test code = XBACU) FEW NONE URINALYSIS [id number] 15:58:00 Test Item Value Reference Range Interpretation [...] code Criteria Culture Chk = UACULT) UA [id number] 15:58:00 Test Item Value Reference Range Interpretation Comments UA RBC (test code = RBCU) RBC/HPF 0-3 UA WBC (test code = XWBCU) WBC/HPF 0-5 UA EPITHELIAL CELLS (test code = EPI/HPF FEW EPIU) UA BACTERIA (test code = XBACU) NONE URINALYSIS [id number] 15:58:00 Test Item Value Reference Range Interpretation [...] code Criteria Culture Chk = UACULT) UA [id number] 15:58:00 Test Item Value Reference Range Interpretation Comments UA RBC (test code = RBCU) RBC/HPF 0-3 UA WBC (test code = XWBCU) WBC/HPF 0-5 UA EPITHELIAL CELLS (test code = EPI/HPF FEW EPIU) UA BACTERIA (test code = XBACU) NONE COMPREHENSIVE METABOLIC [id number] 15:58:00 Test Item Value Reference Range Interpretation [...] UNITS/L 38-126 N (test code = ALKP) [id number] 15:58:00 Test Item Value Reference Range Interpretation Comments LIPASE (test code = LIP) 35 UNITS/L 23-300 N HCG SERUM [id number] 15:58:00 Test Item Value Reference Range Interpretation Comments HCG SERUM QUAL (test code = HCGQL) NEGATIVE NEGATIVE A COMPREHENSIVE METABOLIC [id number] 15:53:00 Test Item Value Reference Range Interpretation [...] PHOSPHATASE (test code = UNITS/L 38-126 ALKP) [id number] 15:53:00 Test Item Value Reference Range Interpretation Comments LIPASE (test code = LIP) UNITS/L 23-300 HCG SERUM [id number] 15:53:00 Test Item Value Reference Range Interpretation Comments HCG SERUM QUAL (test code = HCGQL) NEGATIVE NEGATIVE A CBC W/AUTO [id number] 15:39:00 Test Item Value Reference Range Interpretation [...]
--- NOTE | 2020-09-22 10:36 | EDPHYS ---
Physician Documentation [facility] Name: Sally Navarro Age: 50 yrs Sex: Female : 1970 Arrival Date: 09/22/2020 Time: 06:22 Bed 13 Private MD: Riki Abel HPI: 09/22 08:10 This 50 yrs old Female presents to ER via Ambulatory with complaints of Flu jmm Symptoms. 08:10 The patient or guardian reports cough. Onset: The symptoms/episode began/occurred jmm gradually, 2 day(s) ago. Modifying factors: The symptoms are alleviated by nothing. the symptoms are aggravated by nothing. Associated signs and symptoms: Pertinent negatives: fever. This is a 50-year-old female with history of hypertension that presents emergency room with complaints of cough, congestion, nausea, fatigue began approximately 2 days ago. Patient states her daughter has similar symptoms along with vomiting. Patient is not immunized for COVID-19.. 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 - Social history:: Smoking status: Patient denies any tobacco usage or history of. Patient/guardian denies using alcohol, street drugs. ROS: 08:10 Constitutional: Positive for body aches, fatigue. jmm 08:10 Cardiovascular: Positive for 08:10 Respiratory: Positive for dyspnea on exertion. 08:10 All other systems are negative. Exam: 08:10 Constitutional: This is a well developed, well nourished patient who is awake, alert, jmm and in no acute distress. Head/Face: atraumatic. Eyes: EOMI, no conjunctival erythema appreciated ENT: Moist Mucus Membranes Neck: Trachea midline, Supple Chest/axilla: Normal chest wall appearance and motion. Cardiovascular: Regular rate and rhythm. No edema appreciated Respiratory: Normal respirations, no respiratory distress appreciated Abdomen/GI: Non distended, soft Back: Normal ROM Skin: General appearance color normal MS/ Extremity: Moves all extremities, no obvious deformities appreciated, no edema noted to the lower extremities Neuro: Awake and alert, normal gait Psych: Behavior is normal, Mood is normal, Patient is cooperative and pleasant 09:52 ENT: Posterior pharynx: erythema, that is mild. [facility] Vital Signs: 06:42 BP 133 / 97; Pulse 103; Resp 18 S; Temp 98.9(O); Pulse Ox 97% on R/A; Weight 104.33 kg bb (R); Height 5 ft. 8 in. (172.72 cm) (R); Pain 8; 06:42 Body Mass Index 34.97 (104.33 kg, 172.72 cm) bb MDM: 07:29 Patient medically screened. edinson 10:35 Data reviewed: vital signs, nurses notes. Counseling: I had a detailed discussion with adan the patient and/or guardian regarding: the historical points, exam findings, and any diagnostic results supporting the discharge/admit diagnosis, lab results, the need for outpatient follow up, to return to the emergency department if symptoms worsen or persist or if there are any questions or concerns that arise at home. ED course: Patient is alert nontoxic in appearance in the ED. Negative for Covid. Patient is advised follow-up primary care provider and otherwise given strict return precautions. Patient understood and agrees with plan of care.. 09/22 07:14 Order name: COVID-19 : Document "Date of Symptom Onset" if Symptomatic. [facility] 09/22 09:08 Order name: SARS-COV-2 RT PCR; Complete Time: 09:17 [facility] 09/22 09:17 Order name: Strep [facility] 09/22 09:18 Order name: Group A Streptococcus Rapid Sc; Complete Time: 10:31 [facility] 09/22 10:31 Order name: Throat Culture [facility] Administered Medications: No medications were administered Disposition: 09/23 07:01 Co-signature as Attending Physician, Riki Doyle MD I agree with the assessment and [facility] plan of care. Disposition Summary: 09/22/20 10:36 Discharge Ordered Location: Home [facility] Condition: Stable [facility] Diagnosis - Acute pharyngitis, unspecified jmm - Acute upper respiratory infection, unspecified jmm Followup: [facility] - With: Private Physician - When: 2 - 3 days - Reason: Recheck today's complaints, Continuance of care, Re-evaluation by your physician Discharge Instructions: - Discharge Summary Sheet jmm - Pharyngitis jmm - Upper Respiratory Infection, Adult [facility] Forms: - Medication Reconciliation Form [facility] - Thank You Letter jm - Antibiotic Education jm - Prescription Opioid Use [facility] Prescriptions: - albuterol sulfate 90 mcg/actuation Inhalation HFA aerosol inhaler - inhale 2 puff by INHALATION route every 4 hours; 1 Inhaler; Refills: 0, Product jmm Selection Permitted - Zithromax Z-Juan Pablo 250 mg Oral Tablet - take 1 tablet by ORAL route as directed for 5 days Day 1 - take two (2) tablets jmm one time. Day 2, 3, 4 , 5 take one (1) tablet once daily.; 6 tablet; Refills: 0, Product Selection Permitted Signatures: Dispatcher [employer] EDRiki Pinedo MD MD cha Mickail, Joel, PA PA jmm Ballard, Brenda, RN RN bb Corrections: (The following items were deleted from the chart) 09/22 08:13 07:15 CORONAVIRUS ordered. EDOH EDMS
--- NOTE | 2020-09-22 10:36 | ER ---
Nurse's Notes [facility] Name: Sally Navarro Age: 50 yrs Sex: Female : 1970 Arrival Date: 09/22/2020 Time: 06:22 Bed 13 Private MD: Diagnosis: Acute pharyngitis, unspecified;Acute upper respiratory infection, unspecified Presentation: 09/22 06:42 Chief complaint: Patient states: she started feeling ill 2 days ago with congestion, bb runny nose, cough, muscle aches, sore throat and fever. Coronavirus screen: congestion, cough unrelated to allergies, fever, muscle pain, Client presents with at least one sign or symptom that may indicate coronavirus-19. Standard/surgical mask placed on the client. Ebola Screen: No symptoms or risks identified at this time. Initial Sepsis Screen: Does the patient meet any 2 criteria? No. Patient's initial sepsis screen is negative. Does the patient have a suspected source of infection? No. Patient's initial sepsis screen is negative. Risk Assessment: Do you want to hurt yourself or someone else? Patient reports no desire to harm self or others. Onset of symptoms was September 20, 2020. 06:42 Method Of Arrival: Ambulatory bb 06:42 Acuity: RONA 3 bb Triage Assessment: 06:44 General: Appears in no apparent distress. Behavior is calm, cooperative. Pain: bb Complains of pain in muscle aches all over Pain currently is 8 out of 10 on a pain scale. Neuro: Level of Consciousness is awake, alert, obeys commands, Oriented to person, place, time, situation. Cardiovascular: Capillary refill < 3 seconds Patient's skin is warm and dry. Respiratory: Respiratory effort is unlabored. GI: No signs and/or symptoms were reported involving the gastrointestinal system. Derm: Skin is pink, warm \T\ dry. Musculoskeletal: Circulation, motion, and sensation intact. 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 - Social history:: Smoking status: Patient denies any tobacco usage or history of. Patient/guardian denies using alcohol, street drugs. Screenin:54 Abuse screen: Denies threats or abuse. Denies injuries from another. Nutritional iw screening: No deficits noted. Tuberculosis screening: No symptoms or risk factors identified. Fall Risk None identified. Assessment: 08:00 General: Appears in no apparent distress. Behavior is calm, cooperative. Neuro: Level iw of Consciousness is awake, alert, obeys commands, Oriented to person, place, time, situation. Cardiovascular: Patient's skin is warm and dry. Respiratory: Respiratory effort is Respiratory pattern is regular, symmetrical. Derm: Skin is intact, is healthy with good turgor. Musculoskeletal: Range of motion: intact in all extremities. Vital Signs: 06:42 BP 133 / 97; Pulse 103; Resp 18 S; Temp 98.9(O); Pulse Ox 97% on R/A; Weight 104.33 kg bb (R); Height 5 ft. 8 in. (172.72 cm) (R); Pain 8/10; 06:42 Body Mass Index 34.97 (104.33 kg, 172.72 cm) bb ED Course: 06:22 Patient arrived in ED. am2 06:44 Triage completed. bb 06:44 Arm band placed on Patient placed in waiting room, Patient notified of wait time. bb 06:53 Alfredo Salmeron PA is PHCP. [facility] 06:53 Devyn Nair MD is Attending Physician. [facility] 07:29 Attending Physician role handed off by Devyn Nair MD edinson 07:29 Riki Doyle MD is Attending Physician. edinson 07:36 Danielle Bolton, AMIE is Primary Nurse. iw 08:00 Patient has correct armband on for positive identification. iw 09:46 Strep Sent. iw 10:54 No provider procedures requiring assistance completed. Patient did not have IV access iw during this emergency room visit. Administered Medications: No medications were administered Outcome: 10:36 Discharge ordered by . jmm 10:53 Discharged to home ambulatory. iw 10:53 Condition: good 10:53 Discharge instructions given to patient, Instructed on discharge instructions, follow up and referral plans. medication usage, Demonstrated understanding of instructions, follow-up care, medications, Prescriptions given X 1. 10:54 Patient left the ED. iw Signatures: Riki Doyle MD MD cha Mickail, Joel, PA PA jmm Ballard, Brenda, RN RN Danielle Patterson RN RN Nat Montoya
[2020-09-22 11:05] VITALS: BP 133/97; TEMP 98.9; O2SAT 97
== END 2020-09-22 10:54 | disposition home or self-care (01) ==
LOC: ER 06:18
DX: J06.9 Acute upper respiratory infection, unspecified (principal); J02.9 Acute pharyngitis, unspecified; I10 Essential (primary) hypertension; Z20.822 Contact with and (suspected) exposure to COVID-19
CPT/HCPCS: 87070; 87081; 99283; U0003

== ENCOUNTER 2020-09-24 18:44 | Emergency (ER) | payer SELFPAY ==
--- OUTSIDE RECORDS SUMMARY | 2020-09-24 18:47 | XMS REPORT | Continuity of Care Document ---
:1970 Author Organization [facility] t Address [address] [place] [address] Care Team Providers Name Role Phone Pcp MD Primary Care Physician Unavailable Payers Payer Name Policy Type Policy Number Effective Date Expiration Date S ource Problems This patient has no known problems. Allergies, Adverse Reactions, Alerts Allergy Allergy Status Severity Reaction(s) Onset Inactive Treating Comm ents Source Name Type Date Date Clinician No Known DA Active U [facility] Allergie 07-31 [facility] 00:00: [address] Social History Social Habit Start Date Stop Date Quantity Comments Source History [facility] Alcohol Std Drinks [facility] - Alcohol Binge Medical Miguelito ter Sex Assigned At [facility] Tobacco use and 2018-09-08 2018-09-[address] [facility] Carmen kes - exposure 00:00:00 [facility]:00:00 [facility] Center Alcohol intake 2018-09-08 2018-09-08 [facility] non-drinker of Medical Ce nter alcohol (finding) History [facility] 2018-09-08 2018-09-[address] [facility] - Alcohol Frequency 00:00:00 00:00:00 Medical Center Smoking Status Start Date Stop Date Source Never smoker [facility] Medications This patient has no known medications. Procedures This patient has no known procedures. Plan of Care Planned Activity Planned Date Details Comments Source Future Scheduled 2019-11-[address] [facility] Test 00:00:00 (#1) [code = [facility] INFLUENZA VACCINE (#1)] Future Scheduled 2016-08-[address] [facility] Test 00:00:00 (procedure) [code = [facility] 88889083] Future Scheduled 1992-08-[address] [facility] - Test 00:00:00 malignant neoplasm Medical C enter of cervix (procedure) [code = 084342256] Results Test Description Test Time Test Comments Results Result Sourc e Comments CT, BRAIN, WITHOUT 2018-09-08 Reason for FINAL REPORT PATIENT CONTRAST 20:40:00 exam:->HEADACHEW ID: [id number] CT, hat is the BRAIN, WITHOUT patient's [...] MDReport Verified Date/Time: 09/08/2018 20:40:03 Reading [facility] B1 C013V Neuro Reading Room - US TRANSVAGINAL 2018-06-09 Patient Name: NON OB 18:29:00 DENAE DIAZ [address] Unit No: [id number] EXAMS: CPT CODE: [id number] [place] [id number] Location: T 18 Transvaginal and transabdominal pelvic [...] MD CC: MARIA LUISA FERNANDES DO Technologist: [id number]; Radha Cortés RDMS(OB)(AB) Transcrpt Date/Tm/Trnsp: 06/09/2018 (1828) [email or web address] Orig Print D/T: S: 06/09/2018 (183) [facility] NAME: JOEDENAE [id number] PHYS: MAR[place] [address] : 1970 AGE: 47 SEX: F LOC: Z.ERS PHONE #: [phone] EXAM DATE: 06/09/2018 STATUS: REG ER FAX #: [phone] RADIOLOGY NO: [id number] PAGE 1 Signed Report - US PELVIS 2018-06-09 Patient Name: COMPLETE 18:29:00 DENAE DIAZ Unit No: [id number] EXAMS: CPT CODE: [id number] US PELVIS COMPLETE [id number] Location: T 18 Transvaginal and transabdominal pelvic [...] MD CC: MARIA LUISA FERNANDES DO Technologist: [id number]; Radha Cortés RDMS(OB)(AB) Transcrpt Date/Tm/Trnsp: 06/09/2018 (182) [email or web address] Orig Print D/T: S: 06/09/2018 (183) [facility] NAME: DENAE DIAZ [id number] PHYS: ENÓSCARH Del [place] [address] : 1970 AGE: 47 SEX: F LOC: LISANDRA PHONE #: [phone] EXAM DATE: 06/09/2018 STATUS: REG ER FAX #: [phone] RADIOLOGY NO: [id number] PAGE 1 Signed Report URINALYSIS COMPLETE 2018-06-09 [...] UACULT) NO, WBC<10 Criteria Culture Chk UA [id number] 16:14:00 Test Item Value Reference Range Interpretation Comments UA RBC (test code = RBCU) >100 RBC/HPF 0-3 A UA WBC (test code = XWBCU) 5-9 WBC/HPF 0-5 A UA EPITHELIAL CELLS (test code = FEW EPI/HPF FEW EPIU) UA BACTERIA (test code = XBACU) FEW NONE URINALYSIS [id number] 15:58:00 Test Item Value Reference Range Interpretation [...] code Criteria Culture Chk = UACULT) UA [id number] 15:58:00 Test Item Value Reference Range Interpretation Comments UA RBC (test code = RBCU) RBC/HPF 0-3 UA WBC (test code = XWBCU) WBC/HPF 0-5 UA EPITHELIAL CELLS (test code = EPI/HPF FEW EPIU) UA BACTERIA (test code = XBACU) NONE URINALYSIS [id number] 15:58:00 Test Item Value Reference Range Interpretation [...] code Criteria Culture Chk = UACULT) UA [id number] 15:58:00 Test Item Value Reference Range Interpretation Comments UA RBC (test code = RBCU) RBC/HPF 0-3 UA WBC (test code = XWBCU) WBC/HPF 0-5 UA EPITHELIAL CELLS (test code = EPI/HPF FEW EPIU) UA BACTERIA (test code = XBACU) NONE COMPREHENSIVE METABOLIC [id number] 15:58:00 Test Item Value Reference Range Interpretation [...] UNITS/L 38-126 N (test code = ALKP) [id number] 15:58:00 Test Item Value Reference Range Interpretation Comments LIPASE (test code = LIP) 35 UNITS/L 23-300 N HCG SERUM [id number] 15:58:00 Test Item Value Reference Range Interpretation Comments HCG SERUM QUAL (test code = HCGQL) NEGATIVE NEGATIVE A COMPREHENSIVE METABOLIC [id number] 15:53:00 Test Item Value Reference Range Interpretation [...] PHOSPHATASE (test code = UNITS/L 38-126 ALKP) [id number] 15:53:00 Test Item Value Reference Range Interpretation Comments LIPASE (test code = LIP) UNITS/L 23-300 HCG SERUM [id number] 15:53:00 Test Item Value Reference Range Interpretation Comments HCG SERUM QUAL (test code = HCGQL) NEGATIVE NEGATIVE A CBC W/AUTO [id number] 15:39:00 Test Item Value Reference Range Interpretation [...]
[2020-09-24] MEDS ORDERED: IBUPROFEN 200 MG TAB PO ONE (19:51)
--- NOTE | 2020-09-24 20:41 | RAD REPORT ---
EXAM DESCRIPTION: RAD - Chest Single View - 09/24/2020 8:23 pm CLINICAL HISTORY: COUGH COMPARISON: Portable August 2019 TECHNIQUE: AP portable chest image was obtained 09/24/2020 8:23 pm . FINDINGS: Lungs are clear. Heart and vasculature are normal. No measurable pleural effusion and no p neumothorax. No acute bony abnormality seen. No acute aortic findings suspected. IMPRESSION: No acute cardiopulmonary process. No significant change from comparison study.
[2020-09-24 20:42] LABS: Absolute Lymphocytes (CBC) 1.3 K/uL (0.7-4.9); Basophils % 0.7 % (0-1.3); Hematocrit 32.7 % (36.0-45.0); Lymphocytes % 10.9 % (15.3-44.8); MPV 6.6 fL (7.6-11.3); RBC Red Blood Cell Count 5.45 M/uL (3.86-4.86)
[2020-09-24] MEDS ORDERED: CEFTRIAXONE/SWI 1gm 1 GM/10 ML SYR ONE (20:43)
[2020-09-24] MEDS ORDERED: NA CHLORIDE 0.9% 1,000 ML ONE (20:43)
[2020-09-24 20:49] LABS: Urine Blood Trace-intact (Negative); Urine Glucose Negative (Negative); Urine Protein 1+ (Negative); Urine Specific Gravity 1.025 (1.005-1.030)
[2020-09-24 21:01] LABS: ALT/SGPT 23 U/L (12-78); AST/SGOT 14 U/L (15-37); Albumin 3.7 g/dL (3.4-5.0); Alkaline Phosphatase 80 U/L (45-117); BUN Blood Urea Nitrogen 11 mg/dL (7-18); Bicarbonate 25 mmol/L (21-32); Bilirubin Total 0.3 mg/dL (0.2-1.0); Glucose Level 110 mg/dL (74-106); Potassium 4.3 mmol/L (3.5-5.1); Protein, Total 8.3 g/dL (6.4-8.2); Sodium Level 134 mmol/L (136-145); Troponin (Emerg Dept Use Only) < 0.02 ng/mL (0.0-0.045)
[2020-09-24 21:01] LABS: Urine Specific Gravity/Preg 1.025 (1.005-1.030)
[2020-09-24] MEDS ORDERED: levoFLOXacin 750 MG TAB ONE (21:18)
[2020-09-24 21:58] LABS: Blood Morphology Comment NOTED (NOT SEEN); Hypochromasia 1+; Platelet Estimate ADEQ; Polychromasia 1+; White Blood Cell Scan OK (OK)
--- NOTE | 2020-09-25 08:00 | EKG ---
Test Date: 2020-09-24 Test Time: 19:24:35 Automated Manufacturing Instructor: STEPHANIE MEASUREMENT RESULTS: Intervals: Rate: 81 WI: 162 QRSD: 78 QT: 362 QTc: 420 [place]: P: 41 WI: 162 QRS: 11 T: 35 INTERPRETIVE STATEMENTS: Normal sinus rhythm Normal ECG Compared to ECG 08/19/2019 15:47:18 Myocardial infarct finding no longer present Electronically Signed On 09-25-20 07:57:41 CDT by Jurgen Espinal
--- NOTE | 2020-09-25 17:39 | EDPHYS ---
Physician Documentation [facility] Name: Sally Navarro Age: 50 yrs Sex: Female : 1970 Arrival Date: 09/24/2020 Time: 18:58 Bed 26 Private MD: ED Physician Riki Doyle HPI: 09/24 20:10 This 50 yrs old Female presents to ER via Ambulatory with complaints of Chest edinson Pain, Cough, Ear Pain. 20:10 The patient or guardian reports chest pain that is located primarily in the anterior edinson chest wall, bilaterally. Onset: 2 day(s) ago. The pain does not radiate. Associated signs and symptoms: Pertinent positives: nausea. The chest pain is described as aching. Severity of pain: At its worst the pain was mild just prior to arrival, in the emergency department the pain is unchanged. 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 - Social history:: Smoking status: Patient denies any tobacco usage or history of. ROS: 20:11 Constitutional: Negative for fever, chills, and weight loss, Eyes: Negative for injury, edinson pain, redness, and discharge, ENT: Negative for injury, pain, and discharge, Neck: Negative for injury, pain, and swelling, Cardiovascular: Negative for chest pain, palpitations, and edema, Abdomen/GI: Negative for abdominal pain, nausea, vomiting, diarrhea, and constipation, Back: Negative for injury and pain, : Negative for injury, bleeding, discharge, and swelling, MS/Extremity: Negative for injury and deformity, Skin: Negative for injury, rash, and discoloration, Neuro: Negative for headache, weakness, numbness, tingling, and seizure, Psych: Negative for depression, anxiety, suicide ideation, homicidal ideation, and hallucinations, Allergy/Immunology: Negative for hives, rash, and allergies, Endocrine: Negative for neck swelling, polydipsia, polyuria, polyphagia, and marked weight changes, Hematologic/Lymphatic: Negative for swollen nodes, abnormal bleeding, and unusual bruising. 20:11 Respiratory: Positive for cough, "sounds productive". Exam: 20:11 Head/Face: Normocephalic, atraumatic. Eyes: Pupils equal round and reactive to light, edinson extra-ocular motions intact. Lids and lashes normal. Conjunctiva and sclera are non-icteric and not injected. Cornea within normal limits. Periorbital areas with no swelling, redness, or edema. ENT: Nares patent. No nasal discharge, no septal abnormalities noted. Tympanic membranes are normal and external auditory canals are clear. Oropharynx with no redness, swelling, or masses, exudates, or evidence of obstruction, uvula midline. Mucous membranes moist. Neck: Trachea midline, no thyromegaly or masses palpated, and no cervical lymphadenopathy. Supple, full range of motion without nuchal rigidity, or vertebral point tenderness. No Meningismus. Chest/axilla: Normal chest wall appearance and motion. Nontender with no deformity. No lesions are appreciated. Cardiovascular: Regular rate and rhythm with a normal S1 and S2. No gallops, murmurs, or rubs. Normal PMI, no JVD. No pulse deficits. Abdomen/GI: Soft, non-tender, with normal bowel sounds. No distension or tympany. No guarding or rebound. No evidence of tenderness throughout. Back: No spinal tenderness. No costovertebral tenderness. Full range of motion. Skin: Warm, dry with normal turgor. Normal color with no rashes, no lesions, and no evidence of cellulitis. MS/ Extremity: Pulses equal, no cyanosis. Neurovascular intact. Full, normal range of motion. Neuro: Awake and alert, GCS 15, oriented to person, place, time, and situation. Cranial nerves II-XII grossly intact. Motor strength 5/5 in all extremities. Sensory grossly intact. Cerebellar exam normal. Normal gait. Psych: Awake, alert, with orientation to person, place and time. Behavior, mood, and affect are within normal limits. 20:11 Constitutional: The patient appears febrile. 20:11 ECG was reviewed by the Attending Physician. 20:11 Respiratory: the patient does not display signs of respiratory distress, Respirations: no acute changes, Breath sounds: rhonchi, that are mild, Respiratory rate: 80 Vital Signs: 19:06 BP 149 / 108; Pulse 80; Resp 20; Pulse Ox 99% on R/A; Weight 104.33 kg (R); Height 5 kg ft. 8 in. (172.72 cm); Pain 9/10; 19:06 Body Mass Index 34.97 (104.33 kg, 172.72 cm) kg MDM: 19:27 Patient medically screened. [facility] 09/24 20:10 Order name: CBC with Diff [facility] 09/24 20:10 Order name: Comprehensive Metabolic Panel; Complete Time: 21:02 [facility] 09/24 20:11 Order name: Troponin (emerg Dept Use Only); Complete Time: 21:02 [facility] 09/24 20:47 Order name: CBC Smear Scan [facility] 09/24 20:49 Order name: Urine Culture [facility] 09/24 20:49 Order name: Urine Dipstick-Ancillary; Complete Time: 21:02 [facility] 09/24 20:10 Order name: PO challenge; Complete Time: 20:36 [facility] 09/24 20:10 Order name: Chest Single View XRAY; Complete Time: 20:43 [facility] 09/24 20:11 Order name: EKG; Complete Time: 20:12 [facility] 09/24 20:51 Order name: Urine --Ancillary (enter results); Complete Time: 21:02 [facility] 09/24 20:11 Order name: EKG - Nurse/Tech; Complete Time: 20:19 [facility] 09/24 20:20 Order name: Urine Dipstick-Ancillary (obtain specimen); Complete Time: 20:48 [facility] 09/24 20:49 Order name: Urine Test (obtain specimen); Complete Time: 20:51 [facility] EC:11 Rate is 81 beats/min. Rhythm is regular. QRS [place] is Normal. [place] interval is normal. QRS edinson interval is normal. QT interval is normal. No Q waves. T waves are Normal. No ST changes noted. Clinical impression: Normal ECG and No evidence of ischemia. Interpreted by me. Reviewed by me. Administered Medications: : Drug: Motrin (ibuprofen) 600 mg Route: PO; ld1 19:29 Follow up: Response: No adverse reaction ld1 20:15 Drug: NS 0.9% 1000 ml Route: IV; Rate: 1 bolus; Site: right antecubital; ld1 20:15 Drug: Rocephin (cefTRIAXone) 1 grams Route: IV; Rate: per protocol; Site: right ld1 antecubital; 20:50 Drug: LevOfloxacin 750 mg Route: PO; ld1 21:04 Follow up: Response: No adverse reaction ld1 Disposition Summary: 09/24/20 21:03 Discharge Ordered Location: Home [facility] Problem: new edinson Symptoms: have improved edinson Condition: Stable edinson Diagnosis - Acute upper respiratory infection, unspecified edinson - Acute bronchitis, unspecified edinson - Acute serous otitis media, bilateral edinson - Fever, unspecified edinson - UTI/ Urinary tract infection, site not specified edinson - Anemia, unspecified edinson Followup: edinson - With: Private Physician - When: 2 - 3 days - Reason: Recheck today's complaints, Continuance of care, Re-evaluation by your physician Discharge Instructions: - Discharge Summary Sheet edinson - Acute Bronchitis, Adult edinson - Otitis Media, Adult edinson - Upper Respiratory Infection, Adult edinson - Dysuria edinson - Anemia edinson - Cool Mist Vaporizer edinson - Otitis Media, Adult, Wveg-dj-Foix edinson - Upper Respiratory Infection, Adult, Lmsl-gf-Alpn edinson - Cough, Adult edinson - Urinary Tract Infection, Adult edinson - Urinary Tract Infection, Adult, Asqu-hw-Zgmr [facility] Forms: - Medication Reconciliation Form [facility] - Thank You Letter [facility] - Antibiotic Education [facility] - Prescription Opioid Use [facility] Prescriptions: - Bromfed DM 2-30-10 mg/5 mL Oral syrup - take 10 milliliter by ORAL route every 6 hours; 160 milliliter; Refills: 0, [facility] Product Selection Permitted - Ibuprofen 600 mg Oral Tablet - take 1 tablet by ORAL route every 6 hours As needed take with food; 30 tablet; [facility] Refills: 0, Product Selection Permitted - levofloxacin 500 mg Oral Tablet - take 1 tablet by ORAL route once daily for 7 days; 7 tablet; Refills: 0, [facility] Product Selection Permitted Signatures: Dispatcher [employer] Riki Ying MD MD cha Dibbern, Lauren RN RN ld1 Cuca Llamas RN RN kg
--- NOTE | 2020-09-25 17:39 | ER ---
Nurse's Notes [facility] Name: Sally Navarro Age: 50 yrs Sex: Female : 1970 Arrival Date: 09/24/2020 Time: 18:58 Bed 26 Private MD: Diagnosis: Acute upper respiratory infection, unspecified;Acute bronchitis, unspecified;Acute serous otitis media, bilateral;Fever, unspecified;UTI/ Urinary tract infection, site not specified;Anemia, unspecified Presentation: 09/24 19:06 Chief complaint: Patient states: Pt stated, " I was here Thursday and diagnosed with flu. kg I'm having chest pain, sore throat, left ear ache and just feeling worse. ". Coronavirus screen: Client denies travel out of the [place] in the last 14 days. At this time, unable to obtain information related to travel outside the [place] At this time, the client does not indicate any symptoms associated with coronavirus-19. Coronavirus screen: Client presents with at least one sign or symptom that may indicate coronavirus-19. Standard/surgical mask placed on the client. Provider contacted for isolation considerations. At this time, the client does not indicate any symptoms associated with coronavirus-19. Ebola Screen: Patient negative for fever greater than or equal to 101.5 degrees Fahrenheit, and additional compatible Ebola Virus Disease symptoms Patient denies exposure to infectious person. Patient denies travel to an Ebola-affected area in the 21 days before illness onset. Initial Sepsis Screen: Does the patient meet any 2 criteria? No. Patient's initial sepsis screen is negative. Does the patient have a suspected source of infection? No. Patient's initial sepsis screen is negative. Risk Assessment: Do you want to hurt yourself or someone else? Patient reports no desire to harm self or others. Onset of symptoms was September 24, 2020. 19:06 Method Of Arrival: Ambulatory kg 19:06 Acuity: RONA 3 kg Triage Assessment: 19:09 General: Appears in no apparent distress. Behavior is calm, cooperative, appropriate kg for age, quiet. Pain: Complains of pain in chest Pain radiates to throat, left ear ,generalized Pain currently is 9 out of 10 on a pain scale. at worst was 10 out of 10 on a pain scale. level that patient reports is acceptable is 3 out of 10 on a pain scale. Quality of pain is described as aching. 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 - Social history:: Smoking status: Patient denies any tobacco usage or history of. Screenin:11 Abuse screen: Denies threats or abuse. Denies injuries from another. Nutritional kg screening: No deficits noted. Tuberculosis screening: No symptoms or risk factors identified. Fall Risk None identified. No fall in past 12 months (0 pts). No secondary diagnosis (0 pts). No IV (0 pts). Ambulatory Aid- None/Bed Rest/Nurse Assist (0 pts). Gait- Normal/Bed Rest/Wheelchair (0 pts) Mental Status- Oriented to own ability (0 pts). Total Mcintyre Fall Scale indicates No Risk (0-24 pts). Assessment: 21:12 Cardiovascular: Capillary refill < 3 seconds Patient's skin is warm and dry. ld1 21:13 Pain: Pain began 2-3 days ago. ld1 Vital Signs: 19:06 BP 149 / 108; Pulse 80; Resp 20; Pulse Ox 99% on R/A; Weight 104.33 kg (R); Height 5 kg ft. 8 in. (172.72 cm); Pain 9/10; 19:06 Body Mass Index 34.97 (104.33 kg, 172.72 cm) kg ED Course: 18:58 Patient arrived in ED. mr 19:09 Triage completed. kg 19:11 Arm band placed on right wrist. kg 19:11 Patient has correct armband on for positive identification. kg 19:11 No provider procedures requiring assistance completed. Patient maintains SpO2 kg saturation greater than 95% on room air. 19:15 Gunjan Watson, AMIE is Primary Nurse. ld1 19:27 Riki Doyle MD is Attending Physician. edinson 20:23 Chest Single View XRAY In Process Unspecified. 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 Pulse ox on. NIBP on. ld1 21:13 IV discontinued, intact, bleeding controlled, No redness/swelling at site. ld1 Administered Medications: 19:29 Drug: Motrin (ibuprofen) 600 mg Route: PO; ld1 19:29 Follow up: Response: No adverse reaction ld1 20:15 Drug: NS 0.9% 1000 ml Route: IV; Rate: 1 bolus; Site: right antecubital; ld1 20:15 Drug: Rocephin (cefTRIAXone) 1 grams Route: IV; Rate: per protocol; Site: right ld1 antecubital; 20:50 Drug: LevOfloxacin 750 mg Route: PO; ld1 21:04 Follow up: Response: No adverse reaction ld1 Outcome: 21:03 Discharge ordered by . edinson 21:12 Discharged to home ambulatory. ld1 21:12 Condition: stable 21:12 Discharge instructions given to patient, family, Instructed on discharge instructions, follow up and referral plans. medication usage, Demonstrated understanding of instructions, follow-up care, medications. 21:13 Patient left the ED. ld1 Signatures: Dispatcher [employer] EDMS Riki Doyle MD MD cha Rivera, Mary mr Gunjan Watson, RN RN ld1 Cuca Llamas RN RN kg
[2020-09-26 14:09] VITALS: BP 149/108; O2SAT 99
== END 2020-09-24 21:13 | disposition home or self-care (01) ==
LOC: ER 18:44
DX: J20.9 Acute bronchitis, unspecified (principal); H65.03 Acute serous otitis media, bilateral; N39.0 Urinary tract infection, site not specified; D64.9 Anemia, unspecified; J06.9 Acute upper respiratory infection, unspecified; I10 Essential (primary) hypertension
CPT/HCPCS: 36415; 71045; 80053; 81003; 81025; 84484; 85025; 87086; 87088; 93005; J0696; J7030

== ENCOUNTER 2023-06-09 20:46 | Emergency (ER) | payer OTHER, SELFPAY ==
[2023-06-09 21:34] LABS: Specific Gravity 1.023 (1.005-1.030); Sqamous Epithelial <5 /HPF (None Seen); Urine Bacteria <20 /HPF (<20); Urine Bilirubin NEGATIVE (Negative); Urine Blood Negative (Negative); Urine Clarity Extremely Turbid (Clear); Urine Color Light-Orange (Yellow); Urine Crystals Unidentified Moderate /HPF (None Seen); Urine Culture Reflex Order REFLEXED; Urine Glucose NEGATIVE (Negative); Urine Ketones NEGATIVE (Negative); Urine Microscopic Reflex YN ORDER UMIC; Urine Mucus Slight /HPF (None Seen); Urine Nitrite 2+ (Negative); Urine Protein 1+ (Negative); Urine Urobilinogen 1+ (Normal); Urine WBC >50 /HPF (<5)
--- NOTE | 2023-06-09 21:45 | EDPHYS ---
Physician Documentation [facility] Name: Sally Navarro Age: 52 yrs Sex: Female : 1970 Arrival Date: 06/09/2023 Time: 20:46 Bed IW9 Private MD: ED Physician Tod Lira HPI: 06/08 21:41 This 52 yrs old Female presents to ER via Ambulatory with complaints of Pain With kb Urination. 21:41 Pt is a 52 year old female who presents for urinary frequency for one week and dysuria kb for 2 days. Denies fever, abd pain, flank pain. . Historical: - Allergies: 20:59 No Known Allergies; as6 - PMHx: 22:31 Hypertension; kd4 - PSHx: 20:59 knee surgery; tubal ligation; as6 22:31 Appendectomy; kd4 - Immunization history:: Adult Immunizations up to date. - Infectious Disease History:: Denies. - Social history:: Smoking status: Patient denies any tobacco usage or history of. ROS: 21:40 Constitutional: As per HPI kb Exam: 21:40 Constitutional: This is a well developed, well nourished patient who is awake, alert, kb and in no acute distress. Head/Face: Normocephalic, atraumatic. ENT: Moist Mucous membranes Cardiovascular: Regular rate Respiratory: Respirations even and unlabored. No increased work of breathing. Talking in full sentences Abdomen/GI: Soft, non-tender. No distention Back: No spinal tenderness. No costovertebral tenderness. Full range of motion. Skin: Warm, dry with normal turgor. Normal color. MS/ Extremity: Pulses equal, no cyanosis. Neurovascular intact. Full, normal range of motion. Neuro: Awake and alert, GCS 15, oriented to person, place, time, and situation. Moves all extremities. Normal gait. Vital Signs: 20:58 BP 167 / 95; Pulse 80; Resp 18 S; Temp 98.4(TE); Pulse Ox 98% on R/A; Weight 106.59 kg as6 (R); Height 5 ft. 8 in. (R); Pain 9/10; 22:26 BP 145 / 98; Pulse 74; Resp 18; Temp 98.1; Pulse Ox 99% on R/A; Pain 0/10; kd4 20:58 Body Mass Index 35.73 (106.59 kg, 172.72 cm) as6 20:58 Pain Scale: Adult as6 22:26 Pain Scale: Adult kd4 Endy Coma Score: 21:00 Eye Response: spontaneous(4). Motor Response: obeys commands(6). Verbal Response: kd4 oriented(5). Total: 15. MDM: 20:59 Patient medically screened. kb 21:40 Data reviewed: vital signs, nurses notes. kb 21:41 Differential diagnosis: urinary tract infection, dysuria. Counseling: I had a detailed kb discussion with the patient and/or guardian regarding the historical points, exam findings, and any diagnostic results supporting the discharge/admit diagnosis, lab results, the need for outpatient follow up, a family practitioner, to return to the emergency department if symptoms worsen or persist or if there are any questions or concerns that arise at home. 06/08 21:00 Order name: Urinalysis w/ reflexes; Complete Time: 21:40 kb 06/08 21:40 Order name: Urine Culture EDMS Administered Medications: 22:05 Drug: Amoxicillin-Clavulanate PO 875 mg PO once Route: PO; kd4 22:35 Follow up: Response: No adverse reaction kd4 Disposition: 06/09 05:08 Co-signature as Attending Physician, Tod Lira MD I agree with the assessment sp4 and plan of care. I reviewed the patient's care provided by the Advanced Practice Provider and agree with the diagnosis and treatment plan. Disposition Summary: 06/09/23 21:45 Discharge Ordered Notes: Location: Home kb Condition: Stable kb Diagnosis - UTI/ Urinary tract infection, site not specified kb Followup: kb - With: Emergency Department - When: As needed - Reason: Worsening of condition Followup: kb - With: Private Physician - When: 2 - 3 days - Reason: Recheck today's complaints, Continuance of care, Re-evaluation by your physician Discharge Instructions: - Discharge Summary Sheet kb - Urinary Tract Infection, Adult, Azip-nk-Pitz kb Forms: - Medication Reconciliation Form kb - Thank You Letter kb - Antibiotic Education kb - Prescription Opioid Use kb - Patient Portal Instructions kb - Leadership Thank You Letter kb Prescriptions: - Augmentin 875-125 mg Oral Tablet - take 1 tablet ORAL route every 12 hours for 10 days; 20 tablet; Refills: 0, kb Product Selection Permitted Signatures: Dispatcher [employer] EDMS Mirta Stone, Randall Daniels RN RN as6 Tod Lira MD MD sp4 Ruddy Mcgrath RN RN kd4 Corrections: (The following items were deleted from the chart) 06/08 21:01 21:01 Urinalysis+U.LAB.BRZ ordered. EDDC EDMS 22: 20:59 PMHx: Hypertension; as6 kd4 22:32 20:59 PSHx: Appendectomy; as6 kd4
--- NOTE | 2023-06-09 21:45 | ER ---
Nurse's Notes [facility] Name: Sally Navarro Age: 52 yrs Sex: Female : 1970 Arrival Date: 06/09/2023 Time: 20:46 Bed IW9 Private MD: Diagnosis: UTI/ Urinary tract infection, site not specified Presentation: 06/08 20:58 Chief complaint: Patient states: painful urination and frequency x2 days. Coronavirus as6 screen: At this time, the client does not indicate any symptoms associated with coronavirus-19. Ebola Screen: No symptoms or risks identified at this time. Initial Sepsis Screen: Does the patient meet any 2 criteria? No. Patient's initial sepsis screen is negative. Does the patient have a suspected source of infection? No. Patient's initial sepsis screen is negative. Risk Assessment: Do you want to hurt yourself or someone else? Patient reports no desire to harm self or others. Onset of symptoms was June 07, 2023. 20:58 Method Of Arrival: Ambulatory as6 20:58 Acuity: RONA 4 as6 Triage Assessment: 22:26 General: Appears in no apparent distress. comfortable, Behavior is calm, cooperative. kd4 Pain: Denies pain. Historical: - Allergies: 20:59 No Known Allergies; as6 - PMHx: 22:31 Hypertension; kd4 - PSHx: 20:59 knee surgery; tubal ligation; as6 22:31 Appendectomy; kd4 - Immunization history:: Adult Immunizations up to date. - Infectious Disease History:: Denies. - Social history:: Smoking status: Patient denies any tobacco usage or history of. Screenin:00 Exposure risk/Travel Screening: None identified. kd4 22:26 [facility] ED Fall Risk Assessment (Adult) History of falling in the last 3 months, kd4 including since admission No falls in past 3 months (0 pts). Abuse screen: Denies threats or abuse. Nutritional screening: No deficits noted. Tuberculosis screening: No symptoms or risk factors identified. Assessment: 21:00 General: Appears in no apparent distress. comfortable, Behavior is calm, cooperative. kd4 21:00 Pain: Denies pain. Neuro: No deficits noted. Level of Consciousness is awake, alert. kd4 Cardiovascular: No deficits noted. Respiratory: No deficits noted. 22:33 Reassessment: d/c instruction given to patient with prescription, pt verbalizes kd4 understanding .education provided. Vital Signs: 20:58 BP 167 / 95; Pulse 80; Resp 18 S; Temp 98.4(TE); Pulse Ox 98% on R/A; Weight 106.59 kg as6 (R); Height 5 ft. 8 in. (R); Pain 9/10; 22:26 BP 145 / 98; Pulse 74; Resp 18; Temp 98.1; Pulse Ox 99% on R/A; Pain 0/10; kd4 20:58 Body Mass Index 35.73 (106.59 kg, 172.72 cm) as6 20:58 Pain Scale: Adult as6 22:26 Pain Scale: Adult kd4 Endy Coma Score: 21:00 Eye Response: spontaneous(4). Motor Response: obeys commands(6). Verbal Response: kd4 oriented(5). Total: 15. ED Course: 20:54 Patient arrived in ED. gm2 20:58 [facility]C [facility] kb 20:58 Tod Lira MD is Attending Physician. kb 20:58 Arm band placed on. as6 20:59 Triage completed. as6 21:00 Patient has correct armband on for positive identification. Bed in low position. Side kd4 rails up X 1. Provided Education on: . 21:00 No provider procedures requiring assistance completed. kd4 21:04 Ruddy Mcgrath, AMIE is Primary Nurse. kd4 21:10 Urinalysis w/ reflexes Sent. kd4 21:11 Urine collected: clean catch specimen, clear. kd4 22:30 Patient did not have IV access during this emergency room visit. kd4 Administered Medications: 22:05 Drug: Amoxicillin-Clavulanate PO 875 mg PO once Route: PO; kd4 22:35 Follow up: Response: No adverse reaction kd4 Medication: 21:00 VIS not applicable for this client. kd4 Outcome: 21:45 Discharge ordered by . kb 22:30 Discharged to home kd4 22:30 Condition: stable 22:30 Discharge instructions given to patient, Prescriptions given X 1, 22:36 Patient left the ED. kd4 Signatures: Mirta Stone FNP-C FNP-Ckb Slawson, Ashby, RN RN as6 Shital Santo gm2 Ruddy Mcgrath RN RN kd4 Corrections: (The following items were deleted from the chart) 20:59 PMHx: Hypertension; as6 kd4 20:59 PSHx: Appendectomy; as6 kd4
[2023-06-09] MEDS ORDERED: AMOX/K CLAV 875 MG TAB ONE (21:57)
[2023-06-09 23:55] VITALS: BP 145/98; TEMP 98.1; O2SAT 99
== END 2023-06-09 22:36 | disposition home or self-care (01) ==
LOC: ER 20:46
DX: N39.0 Urinary tract infection, site not specified (principal); I10 Essential (primary) hypertension
CPT/HCPCS: 81001; 87086; 87088; 99284

== ENCOUNTER 2023-07-01 13:26 | Emergency (ER) | payer OTHER ==
[2023-07-01] MEDS ORDERED: NA CHLORIDE 0.9% 1,000 ML ONE (14:11)
[2023-07-01 14:24] LABS: Specific Gravity 1.027 (1.005-1.030); Sqamous Epithelial <5 /HPF (None Seen); Urine Bilirubin NEGATIVE (Negative); Urine Blood Negative (Negative); Urine Clarity Extremely Turbid (Clear); Urine Color Yellow (Yellow); Urine Culture Reflex Order REFLEXED; Urine Glucose NEGATIVE (Negative); Urine Ketones TRACE (Negative); Urine Micro Reflex YN NO BILL MICROSCOPIC; Urine Mucus 3+ /HPF (None Seen); Urine Nitrite NEGATIVE (Negative); Urine Protein TRACE (Negative); Urine RBC <5 /HPF (None Seen); Urine Urobilinogen 3+ (Normal); Urine WBC 20-50 /HPF (<5); Urine pH 6.5 (5.0-7.0)
[2023-07-01 14:26] LABS: Urine Bacteria 20-50 /HPF (<20)
[2023-07-01 14:35] LABS: Absolute Basophils 0.1 K/uL (0-0.5); Absolute Eosinophils 0.1 K/uL (0-0.5); Absolute Lymphocytes (CBC) 2.3 K/uL (0.7-4.9); Absolute Monocytes 0.7 K/uL (0.1-1.3); Absolute Neutrophil 3.9 K/uL (1.8-8.0); Eosinophils % 1.8 % (0-4.4); Hematocrit 24.3 % (36.0-45.0); Hemoglobin 7.1 g/dL (12.0-15.0); Lymphocytes % 33.1 % (15.3-44.8); MCH 16.8 pg (27.0-35.0); MCHC 29.2 g/dL (32.0-36.0); MCV 57.4 fL (80-100); MPV 6.7 fL (7.6-11.3); Monocytes % 9.4 % (3.3-12.3); Neutrophils % 54.7 % (41.7-73.7); Platelets 478 thou/uL (152-406); RBC Red Blood Cell Count 4.23 M/uL (3.86-4.86); Red Cell Distribution Width 18.6 % (12.1-15.2)
[2023-07-01 15:19] LABS: Blood Morphology Comment NOTED (NOT SEEN); Hypochromasia 3+; Microcytosis 3+; Platelet Estimate INCR; White Blood Cell Scan OK (OK)
[2023-07-01 15:23] LABS: Albumin 3.6 g/dL (3.4-5.0); Bilirubin Total 0.3 mg/dL (0.2-1.0); Globulin 3.6 g/dL (2.3-3.5); Protein, Total 7.2 g/dL (6.4-8.2)
[2023-07-01] MEDS ORDERED: CIPROFLOXACIN 400mg IV 400 MG/200 ML BAG IV ONE (15:40)
[2023-07-01] MEDS ORDERED: MORPHINE 4 MG/ML SYR ONE (16:14)
[2023-07-01] MEDS ORDERED: ONDANSETRON 4 MG/2 ML VIAL ONE (16:14)
--- NOTE | 2023-07-01 16:16 | RAD REPORT ---
EXAM DESCRIPTION: CTAbdomen Pelvis W Contrast - 07/01/2023 4:08 pm CLINICAL HISTORY: Abdominal pain. pyelo COMPARISON: CT ABD PELVIS W CONTRAST dated 06/02/2007 TECHNIQUE: Biphasic CT imaging of the abdomen and pelvis was performed with 100 ml non-ionic IV cont rast. All CT scans are performed using dose optimization technique as appropriate and may include automated exposure control or mA/KV adjustment according to patient size. FINDINGS: The lung bases are clear. The liver, spleen, pancreas, adrenal glands and kidneys are within normal limits. No bowel obstruction, free air, free fluid or abscess. Appendectomy. No evidence of significant lym phadenopathy. No suspicious bony findings. IMPRESSION: No acute intra-abdominal or pelvic finding.
[2023-07-01] MEDS ORDERED: NA CHLORIDE 0.9% 250 ML ONE (17:30)
--- NOTE | 2023-07-01 19:14 | ER ---
Nurse's Notes [facility] Name: Sally Navarro Age: 52 yrs Sex: Female : 1970 Arrival Date: 07/01/2023 Time: 13:26 Bed 11 Private MD: Diagnosis: UTI/ Urinary tract infection, site not specified;Anemia, unspecified Presentation: 06/30 13:41 Chief complaint: Patient states: Seen here 2 weeks ago. Dysuria along with low back nj1 pain. Has taken round of abx prescribed 2 weeks ago with no relief. Coronavirus screen: Vaccine status: Patient reports being unvaccinated. Ebola Screen: Patient denies travel to an Ebola-affected area in the 21 days before illness onset. Initial Sepsis Screen: Does the patient meet any 2 criteria? No. Patient's initial sepsis screen is negative. Does the patient have a suspected source of infection? No. Patient's initial sepsis screen is negative. Risk Assessment: Do you want to hurt yourself or someone else? Patient reports no desire to harm self or others. Onset of symptoms was June 2023. 13:41 Method Of Arrival: Ambulatory banner 13:41 Acuity: RONA 3 nj1 Triage Assessment: 13:44 General: Appears in no apparent distress. comfortable, Behavior is calm, cooperative, nj1 appropriate for age. Pain: Complains of pain in back Pain currently is 8 out of 10 on a pain scale. Neuro: Level of Consciousness is awake, alert, obeys commands, Oriented to person, place, time, situation. : Reports burning with urination. 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 - Infectious Disease History:: Denies. - Social history:: Smoking status: Patient denies any tobacco usage or history of. Screenin:45 [facility] ED Fall Risk Assessment (Adult) History of falling in the last 3 months, tl4 including since admission No falls in past 3 months (0 pts) Confusion or Disorientation No (0 pts) Intoxicated or Sedated No (0 pts) Impaired Gait No (0 pts) Mobility Assist Device Used No (0 pt) Altered Elimination No (0 pt) Score/Fall Risk Level 0 - 2 = Low Risk Oriented to surroundings, Maintained a safe environment, Educated pt \T\ family on fall prevention, incl call for assistance when getting out of bed, Assessed \T\ reinforced patient's understanding of fall precautions, Hourly rounding (assess needs \T\ fall precautionary measures) done, Used ambulatory aids as needed (educated on \T\ assisted with), Used gait belt as appropriate. Abuse screen: Denies threats or abuse. Denies injuries from another. Nutritional screening: No deficits noted. Tuberculosis screening: No symptoms or risk factors identified. Assessment: 14:36 General: Appears in no apparent distress. Behavior is calm, cooperative. Pain: tl4 Complains of pain in back. 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 16:05 Reassessment: Patient and/or family updated on plan of care and expected duration. Pain tl4 level reassessed. Patient is alert, oriented x 3, equal unlabored respirations, skin warm/dry/pink. Pt c/o increased pain. ISAÍAS Olvera advised, will order IV medications Patient states symptoms have not improved. 17:00 Reassessment: Patient and/or family updated on plan of care and expected duration. Pain tl4 level reassessed. Patient is alert, oriented x 3, equal unlabored respirations, skin warm/dry/pink. Patient states feeling better. 17:40 Reassessment: RBC infusion checked and confirmed by May Lal PA-C. Transfusion tl4 initiated. Pt educated on signs and symptoms of transfusion reaction. See transfusion record. 18:06 Reassessment: Patient and/or family updated on plan of care and expected duration. Pain tl4 level reassessed. Patient is alert, oriented x 3, equal unlabored respirations, skin warm/dry/pink. Pt states she feels tired Patient denies pain at this time. Patient states feeling better. 19:00 Reassessment: Patient and/or family updated on plan of care and expected duration. Pain tl4 level reassessed. Patient is alert, oriented x 3, equal unlabored respirations, skin warm/dry/pink. Patient denies pain at this time. 19:12 Reassessment: Blood transfusion completed. Provider aware. tl4 Vital Signs: 13:41 BP 153 / 76; Pulse 83; Resp 16; Temp 98.5(O); Pulse Ox 97% ; Weight 99.79 kg; Height 5 nj1 ft. 8 in. ; Pain 8/10; 15:00 BP 150 / 86; Pulse 90; Resp 18; Pulse Ox 99% on R/A; tl4 16:00 BP 156 / 97; Pulse 85; Resp 16; Pulse Ox 100% on R/A; tl4 17:00 BP 129 / 75; Pulse 72; Resp 16; Pulse Ox 100% on R/A; tl4 19:29 BP 136 / 78; Pulse 72; Resp 16; Temp 97.4(TE); Pulse Ox 100% ; Pain 4/10; tl4 13:41 Body Mass Index 33.45 (99.79 kg, 172.72 cm) nj1 13:41 Pain Scale: Adult nj1 19:29 Pain Scale: Adult tl4 ED Course: 13:29 Patient arrived in ED. im 13:36 Mariah Lal PA-C is PHCP. sb4 13:36 Allison Olivier MD is Attending Physician. sb4 13:44 Triage completed. nj1 13:44 Arm band placed on right wrist. nj1 13:56 UAM Sent. bc6 14:36 Juan Carlos Nj, RN is Primary Nurse. tl4 14:36 CBC with Diff Sent. tl4 14:36 CMP Sent. tl4 14:45 Patient has correct armband on for positive identification. Placed in gown. Bed in low tl4 position. Call light in reach. Side rails up X 1. Provided Education on: ED process. Client placed on continuous cardiac and pulse oximetry monitoring. NIBP monitoring applied. Door closed. Noise minimized. Lights dimmed. Moved to private room. Warm blanket given. 14:46 No provider procedures requiring assistance completed. Initial lab(s) drawn, by me, tl4 sent to lab. Urine collected:. Inserted saline lock: 22 gauge in right forearm, using aseptic technique. Blood collected. 14:54 Type And Screen Sent. bc6 15:35 Type And Screen Sent. tl4 16:08 CT Abd/Pelvis - IV Contrast Only In Process Unspecified. EDMS 18:19 Packed RBCs (Additional Unit) Sent. tl4 19:29 IV discontinued, intact, bleeding controlled, No redness/swelling at site. Pressure tl4 dressing applied. Administered Medications: 14:36 Drug: NS 0.9% IV 1000 ml IV at 1 bolus Per protocol; 1000 mL bolus Route: IV; Rate: 1 tl4 bolus; Site: right forearm; Delivery: Primary tubing; 15:45 Follow up: Response: No adverse reaction; IV Status: Completed infusion; IV Intake: tl4 1000ml 15:17 CANCELLED (Other Intervention Used): rocephin1 grams IV at calculated rate once; Given sb4 slow IV push per pharmacy instructions 16:26 Drug: Ciprofloxacin IVPB 400 mg 200 ml IVPB once over 60 mins Volume: 200 ml; Route: tl4 IVPB; Infused Over: 60 mins; Site: right forearm; Delivery: Dial-a-flow; 17:30 Follow up: Response: No adverse reaction; IV Status: Completed infusion; IV Intake: tl4 200ml 16:26 Drug: morphine IVP or IV 4 mg IVP once over 4 mins Route: IVP; Infused Over: 4 mins; tl4 Site: right forearm; 16:55 Follow up: Response: No adverse reaction; Pain is decreased tl4 16:26 Drug: Ondansetron IVP 4 mg IVP once; over 2 minutes Route: IVP; Infused Over: 2 mins; tl4 Site: right forearm; 16:55 Follow up: Response: No adverse reaction tl4 Medication: 14:45 VIS not applicable for this client. tl4 17:40 Blood products: PRBCs X 1 unit given. See transfusion record. tl4 Intake: 15:45 IV: 1000ml; Total: 1000ml. tl4 17:30 IV: 200ml; Total: 1200ml. tl4 Outcome: 19:13 Discharge ordered by . sb4 19:30 Discharged to home ambulatory, tl4 19:30 Condition: stable 19:30 Discharge instructions given to patient, Instructed on discharge instructions, follow up and referral plans. medication usage, Demonstrated understanding of instructions, follow-up care, medications, Prescriptions given X 1, 19:30 Patient left the ED. tl4 Addendum: 07/04/2023 08:03 Addendum: Culture Results: Positive urine culture. No further action required. Bacteria h b sensitive to prescribed antibiotic. Signatures: Dispatcher [employer] EDMT Christiana Pope, RN RN Mariah Olson, PA-C PA-C sb4 Inocencia Car bc6 Josy Shetty RN RN nj1 Nina Minor Toni RN RN tl4 Corrections: (The following items were deleted from the chart) 06/30 13:45 13:44 Pain: Complains of pain in back [place] [id number] 18:08 17:00 Reassessment: Patient and/or family updated on plan of care and expected tl4 duration. Pain level reassessed. Patient is alert, oriented x 3, equal unlabored respirations, skin warm/dry/pink. Pt c/o increased pain. ISAÍAS Olvera advised, will order IV medications Patient states symptoms have not improved. tl4
--- NOTE | 2023-07-01 19:14 | EDPHYS ---
Physician Documentation [facility] Name: Sally Navarro Age: 52 yrs Sex: Female : 1970 Arrival Date: 07/01/2023 Time: 13:26 Bed 11 Private MD: ED Physician Allison Olivier HPI: 06/30 14:26 This 52 yrs old Female presents to ER via Ambulatory with complaints of Urinary sb4 Problem, Low Back Pain. 14:28 seen here 2 weeks ago for UTI symptoms, diagnosed with UTI, discharged with sb4 prescription for augmentin. took full course, still experiencing UTI symptoms and now has low back pain. reports history of UTIs and kidney infections. no reported fever, chills, n/v. 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 - Infectious Disease History:: Denies. - Social history:: Smoking status: Patient denies any tobacco usage or history of. ROS: 14:28 Constitutional: Negative for fever, chills, and weight loss, sb4 14:28 Back: Positive for flank pain, bilaterally, 14:28 : Positive for urinary symptoms, burning with urination, 14:28 All other systems are negative, Exam: 14:28 Constitutional: This is a well developed, well nourished patient who is awake, alert, sb4 and in no acute distress. Head/Face: Normocephalic, atraumatic. Eyes: Extra-ocular motions intact. Periorbital areas with no swelling, redness, or edema. ENT: Mucous membranes moist. Cardiovascular: Regular rate and rhythm with a normal S1 and S2. Respiratory: Lungs have equal breath sounds bilaterally, clear to auscultation and percussion. No rales, rhonchi or wheezes noted. No increased work of breathing, no retractions or nasal flaring. Abdomen/GI: Soft, non-tender, no distension. Skin: Warm, dry with normal turgor. Normal color with no rashes, no lesions, and no evidence of cellulitis. MS/ Extremity: Pulses equal, no cyanosis. Neurovascular intact. Full, normal range of motion. Neuro: Awake and alert, GCS 15, oriented to person, place, time, and situation. Motor strength 5/5 in all extremities. Sensory grossly intact. 14:28 Back: CVA tenderness, that is mild, is noted bilaterally, Vital Signs: 13:41 BP 153 / 76; Pulse 83; Resp 16; Temp 98.5(O); Pulse Ox 97% ; Weight 99.79 kg; Height 5 nj1 ft. 8 in. ; Pain 8/10; 15:00 BP 150 / 86; Pulse 90; Resp 18; Pulse Ox 99% on R/A; tl4 16:00 BP 156 / 97; Pulse 85; Resp 16; Pulse Ox 100% on R/A; tl4 17:00 BP 129 / 75; Pulse 72; Resp 16; Pulse Ox 100% on R/A; tl4 19:29 BP 136 / 78; Pulse 72; Resp 16; Temp 97.4(TE); Pulse Ox 100% ; Pain 4/10; tl4 13:41 Body Mass Index 33.45 (99.79 kg, 172.72 cm) nj1 13:41 Pain Scale: Adult nj1 19:29 Pain Scale: Adult tl4 MDM: 13:39 Patient medically screened. sb4 15:17 External Records Reviewed: Inpatient record: urine culture from 06/08 grew ecoli and sb4 proteus esbl with sensitivity to augmentin, ciprofloxacin. 16:37 ED course: patient does endorse fatigue, denies known history of anemia. denies any sb4 active bleeding, is post menopausal. will transfuse 1 unit then dispo. 19:13 Data reviewed: vital signs, nurses notes, lab test result(s), radiologic studies, and sb4 as a result, I will discharge patient. Counseling: I had a detailed discussion with the patient and/or guardian regarding the historical points, exam findings, and any diagnostic results supporting the discharge/admit diagnosis, lab results, radiology results, to return to the emergency department if symptoms worsen or persist or if there are any questions or concerns that arise at home. 06/30 13:46 Order name: UAM; Complete Time: 14:27 sb4 06/30 14:06 Order name: CBC with Diff; Complete Time: 15:19 sb4 06/30 14:06 Order name: CMP; Complete Time: 15:23 sb4 06/30 14:29 Order name: Urine Culture EDVT 06/30 14:39 Order name: Type And Screen sb4 06/30 15:19 Order name: CBC Smear Scan; Complete Time: 15:19 EDVT 06/30 16:15 Order name: ABO/RH no charge; Complete Time: 16:15 EDVT 06/30 16:34 Order name: Packed RBCs (Additional Unit) EDVT 06/30 14:06 Order name: CT Abd/Pelvis - IV Contrast Only; Complete Time: 16:16 sb4 06/30 14:06 Order name: IV Saline Lock; Complete Time: 14:36 sb4 06/30 14:06 Order name: Labs collected and sent; Complete Time: 14:36 sb4 Administered Medications: 14:36 Drug: NS 0.9% IV 1000 ml IV at 1 bolus Per protocol; 1000 mL bolus Route: IV; Rate: 1 tl4 bolus; Site: right forearm; Delivery: Primary tubing; 15:45 Follow up: Response: No adverse reaction; IV Status: Completed infusion; IV Intake: tl4 1000ml 15:17 CANCELLED (Other Intervention Used): rocephin1 grams IV at calculated rate once; Given sb4 slow IV push per pharmacy instructions 16:26 Drug: Ciprofloxacin IVPB 400 mg 200 ml IVPB once over 60 mins Volume: 200 ml; Route: tl4 IVPB; Infused Over: 60 mins; Site: right forearm; Delivery: Dial-a-flow; 17:30 Follow up: Response: No adverse reaction; IV Status: Completed infusion; IV Intake: tl4 200ml 16:26 Drug: morphine IVP or IV 4 mg IVP once over 4 mins Route: IVP; Infused Over: 4 mins; tl4 Site: right forearm; 16:55 Follow up: Response: No adverse reaction; Pain is decreased tl4 16:26 Drug: Ondansetron IVP 4 mg IVP once; over 2 minutes Route: IVP; Infused Over: 2 mins; tl4 Site: right forearm; 16:55 Follow up: Response: No adverse reaction tl4 Disposition: 19:48 STAFF ATTESTATION STATEMENT: I was immediately available onsite in the emergency sd2 department for consultation in the care of this patient. I did not see or examine this patient. Allison Olivier MD. Disposition Summary: 07/01/23 19:13 Discharge Ordered Notes: Location: Home sb4 Problem: an ongoing problem sb4 Symptoms: have improved sb4 Condition: Stable sb4 Diagnosis - UTI/ Urinary tract infection, site not specified sb4 - Anemia, unspecified sb4 Followup: sb4 - With: Emergency Department - When: As needed - Reason: Trouble breathing, Worsening of condition Discharge Instructions: - Discharge Summary Sheet sb4 - Urinary Tract Infection, Adult, Gumb-hr-Wfei sb4 - Iron Deficiency Anemia, Adult, Qytg-[id number] sb4 - Blood Transfusion, Adult, Care After, Woes-ec-Cale sb4 Forms: - Antibiotic Education sb4 - Patient Portal Instructions sb4 - Leadership Thank You Letter sb4 Prescriptions: - Cipro 500 mg Oral Tablet - take 1 tablet ORAL route every 12 hours for 7 days; 14 tablet; Refills: 0, sb4 Product Selection Permitted Critical care time excluding procedures: 07/01 17:59 Critical care time: Bedside Care: 20 minutes, Consultation: 10 minutes, Family sb4 Intervention: 5 minutes. Total time: 35 minutes Signatures: Dispatcher [employer] EDVT Allison Olivier MD MD sd2 Mariah Lal PA-C PAPelon sb4 Josy Shetty, RN RN nj1 Juan Carlos Nj, RN RN tl4 Corrections: (The following items were deleted from the chart) 06/30 14:07 14:07 CBC+H.LAB.BRZ ordered. EDMS EDMS 14:07 14:07 COMPREHENSIVE METABOLIC PANEL+C.LAB.BRZ ordered. EDMS EDMS 14:07 14:07 Abdomen Pelvis W Con+CT.RAD.BRZ ordered. EDMS EDMS 15:17 15:06 Rocephin IV 1 grams IV at calculated rate once; Given slow IV push per pharmacy sb4 instructions ordered. sb4
[2023-07-01 19:39] VITALS: BP 136/78; TEMP 97.4; O2SAT 100
== END 2023-07-01 19:30 | disposition home or self-care (01) ==
LOC: ER 13:26
PROC: 30233N1 Transfusion of Nonautologous Red Blood Cells into Peripheral Vein, Percutaneous Approach (ICD-10-PCS; principal; 2023-07-01)
DX: N39.0 Urinary tract infection, site not specified (principal); D64.9 Anemia, unspecified; I10 Essential (primary) hypertension
CPT/HCPCS: 87088; 85025; 81001; 87086; 36415; 86900; 86850; 86901; 86920; 80053; 74177; 36430; Q9967; J2405; J0744; P9016; J7050; J7030; 87077; 87186; 96361; 96365; 96375; 99285

== ENCOUNTER 2023-08-11 21:49 | Emergency (ER) | payer OTHER ==
[2023-08-11 22:53] LABS: Absolute Basophils 0.1 K/uL (0-0.5); Absolute Eosinophils 0.2 K/uL (0-0.5); Absolute Lymphocytes (CBC) 3.1 K/uL (0.7-4.9); Absolute Monocytes 0.7 K/uL (0.1-1.3); Absolute Neutrophil 4.3 K/uL (1.8-8.0); Eosinophils % 2.1 % (0-4.4); Hematocrit 32.2 % (36.0-45.0); Hemoglobin 9.8 g/dL (12.0-15.0); MCH 19.2 pg (27.0-35.0); MCHC 30.5 g/dL (32.0-36.0); MPV 8.2 fL (7.6-11.3); Monocytes % 8.3 % (3.3-12.3); Neutrophils % 51.6 % (41.7-73.7); Nucleated Red Blood Cells % 0.2 % (0-0); Platelets 409 thou/uL (152-406); RBC Red Blood Cell Count 5.11 M/uL (3.86-4.86); Red Cell Distribution Width 25.1 % (12.1-15.2)
[2023-08-11 22:54] LABS: Specific Gravity 1.027 (1.005-1.030); Sqamous Epithelial <5 /HPF (None Seen); Urine Bacteria <20 /HPF (<20); Urine Bilirubin NEGATIVE (Negative); Urine Blood Negative (Negative); Urine Clarity Clear (Clear); Urine Color Light-Yellow (Yellow); Urine Culture Reflex Order NOT NEEDED; Urine Glucose NEGATIVE (Negative); Urine Ketones NEGATIVE (Negative); Urine Micro Reflex YN NO BILL MICROSCOPIC; Urine Mucus Slight /HPF (None Seen); Urine Nitrite NEGATIVE (Negative); Urine Protein NEGATIVE (Negative); Urine RBC <5 /HPF (None Seen); Urine Urobilinogen Normal (Normal); Urine WBC <5 /HPF (<5); Urine Yeast (Budding) Trace /HPF (None Seen)
[2023-08-11 23:11] LABS: ALT/SGPT 20 U/L (13-56); AST/SGOT 11 U/L (15-37); Albumin 3.5 g/dL (3.4-5.0); Albumin/Globulin Ratio 0.9 (1.1-1.8); Alkaline Phosphatase 82 U/L (45-117); BUN Blood Urea Nitrogen 16 mg/dL (7-18); Bicarbonate 24 mEq/L (21-32); Bilirubin Total 0.2 mg/dL (0.2-1.0); Globulin 3.9 g/dL (2.3-3.5); Glomerular Filtration Rate 65 ml/min (=/>90); Glucose Level 113 mg/dL (74-106); Magnesium 2.1 mg/dL (1.6-2.4); PT Prothrombin Time 11.2 SECONDS (9.5-12.5); Protein, Total 7.4 g/dL (6.4-8.2); Protime INR 1.02; Sodium Level 136 mEq/L (136-145); Troponin High Sensitivity 4.6 pg/mL (<58.9)
[2023-08-11 23:12] LABS: Bilirubin Direct < 0.2 mg/dL (0-0.2)
[2023-08-12] LABS: Blood Morphology Comment NOTED (NOT SEEN); Microcytosis 2+; Ovalocytes 2+; Platelet Estimate ADEQ; White Blood Cell Scan OK (OK)
[2023-08-12 00:07] LABS: Ferritin 4.6 ng/mL (8-388)
--- NOTE | 2023-08-12 00:48 | EDPHYS ---
Physician Documentation [facility] Name: Sally Navarro Age: 53 yrs Sex: Female : 1970 Arrival Date: 08/11/2023 Time: 21:49 Bed 20 Private MD: ED Physician Tod Lira HPI: 08/10 22:05 This 53 yrs old Female presents to ER via Ambulatory with complaints of General cp Weakness, Near Syncope, Dizziness. 22:05 The patient presents with dizziness, lightheadedness, near syncope. Onset: The cp symptoms/episode began/occurred 3 day(s) ago. Associated signs and symptoms: Pertinent positives: general weakness, Pertinent negatives: abdominal pain, chest pain, diaphoresis, focal weakness, shortness of breath, syncope, vomiting. Severity of symptoms: in the emergency department the symptoms are unchanged despite home interventions. Patient's baseline: Neuro: alert and fully oriented, Motor: no deficits, Ambulation: walks without assistance, Speech: normal, The patient has a previous history of anemia. 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 - Infectious Disease History:: Denies. - Social history:: Smoking status: Patient denies any tobacco usage or history of. Patient/guardian denies using alcohol. ROS: 22:10 Constitutional: Negative for body aches, chills, fever, poor PO intake, cp 22:10 Eyes: Negative for injury, pain, redness, and discharge, cp 22:10 ENT: Negative for drainage from ear(s), ear pain, sore throat, difficulty swallowing, difficulty handling secretions, 22:10 Cardiovascular: Negative for chest pain, edema, palpitations, 22:10 Respiratory: Negative for cough, shortness of breath, wheezing, 22:10 Abdomen/GI: Negative for abdominal pain, vomiting, diarrhea, constipation, 22:10 Neuro: Positive for dizziness, near syncope, weakness, Negative for altered mental status, headache, syncope, 22:10 All other systems are negative, Exam: 22:15 Constitutional: The patient appears in no acute distress, alert, awake, cp non-diaphoretic, non-toxic, well developed, well nourished, obese, 22:15 Head/Face: Normocephalic, atraumatic. cp 22:15 Eyes: Periorbital structures: appear normal, Conjunctiva: normal, no exudate, no injection, Sclera: no appreciated abnormality, Lids and lashes: appear normal, bilaterally, 22:15 ENT: External ear(s): are unremarkable, Nose: is normal, Mouth: Lips: moist, Oral mucosa: pink and intact, moist, Posterior pharynx: is normal, airway is patent, no erythema, no exudate, 22:15 Chest/axilla: Inspection: normal, 22:15 Cardiovascular: Rate: normal, Rhythm: regular, Edema: is not appreciated, JVD: is not appreciated, 22:15 Respiratory: the patient does not display signs of respiratory distress, Respirations: normal, no use of accessory muscles, no retractions, labored breathing, is not present, Breath sounds: are clear throughout, no decreased breath sounds, no stridor, no wheezing, 22:15 Abdomen/GI: Inspection: abdomen appears normal, Palpation: abdomen is soft and non-tender, in all quadrants, 22:15 Neuro: Orientation: to person, place \T\ time. Mentation: is normal, Cerebellar function: is grossly normal, Motor: moves all fours, strength is normal, Sensation: is normal, Gait: is steady, 23:03 ECG was reviewed by the Attending Physician. cp Vital Signs: 21:56 BP 142 / 80; Pulse 74; Resp 19; Temp 97.4(TE); Pulse Ox 99% ; Weight 100.7 kg (R); tm6 Height 5 ft. 8 in. (R); Pain 0/10; 22:15 BP 173 / 87 Supine; Pulse 67; Resp 17; Pulse Ox 99% ; me1 22:16 BP 164 / 92 Sitting; Pulse 67; Resp 17; Pulse Ox 99% ; me1 22:17 BP 177 / 101 Standing; Pulse 65; Resp 17; Pulse Ox 99% ; me1 23:00 BP 148 / 84; Pulse 63; Resp 16; Pulse Ox 98% on R/A; me1 06 00:05 BP 163 / 89; Pulse 73; Resp 14; Pulse Ox 97% on R/A; Pain 0/10; 6 01:16 BP 163 / 97; Pulse 62; Resp 19; Temp 97.7(TE); Pulse Ox 99% on R/A; Pain 0/10; 6 08/10 21:56 Body Mass Index 33.75 (100.70 kg, 172.72 cm) 6 08/10 21:56 Pain Scale: Adult 6 08/11 00:05 Pain Scale: Adult 6 01:16 Pain Scale: Adult 6 MDM: 08/10 22:02 Patient medically screened. 08/11 00:45 Data reviewed: vital signs, nurses notes, lab test result(s), EKG, radiologic studies, cp CT scan, plain films. 00:45 Differential diagnosis: generalized weakness, GI bleed, hypovolemia, idiopathic cp dizziness, , sepsis. Care significantly affected by the following chronic conditions: Hypertension. 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 08/10 22:24 Order name: Basic Metabolic Panel; Complete Time: 23:13 08/10 23:14 Interpretation: Normal except: GLUC 113; CRE 1.04; GFR 65. 08/10 22:24 Order name: CBC with Diff; Complete Time: 00:09 08/10 23:14 Interpretation: Normal except: RBC 5.11; HGB 9.8; HCT 32.2; MCV 63.0; MCH 19.2; MCHC cp 30.5; PLT 409; RDW 25.1. 08/10 22:24 Order name: LFT's; Complete Time: 23:13 08/10 23:14 Interpretation: Normal except: AST 11; IBILI, CALC 0.0; GLOB 3.9; A/G 0.9. 08/10 22:24 Order name: Magnesium; Complete Time: 23:13 08/10 22:24 Order name: PT-INR; Complete Time: 23:13 08/10 22:24 Order name: Troponin HS; Complete Time: 23:13 cp 08/10 22:24 Order name: Urinalysis W/Microscopic; Complete Time: 23:13 cp 08/10 22:24 Order name: Test, Urine; Complete Time: 23:13 cp 08/10 23:08 Order name: CBC Smear Scan; Complete Time: 00:09 EDMS 08/10 23:46 Order name: TIBC; Complete Time: 00:09 cp 08/11 00:10 Interpretation: Normal except: IRON 16.0; %SAT 3.8. cp 08/10 23:46 Order name: Iron Level; Complete Time: 00:09 cp 08/11 00:10 Interpretation: Reviewed. cp 08/10 22:24 Order name: XRAY Chest (1 view) cp 08/10 23:15 Order name: CT Head Brain wo Cont cp 08/10 22:24 Order name: EKG; Complete Time: 22:25 cp 08/10 22:02 Order name: Orthostatics; Complete Time: 22:26 cp 08/10 22:24 Order name: Cardiac monitoring; Complete Time: 00:05 cp 08/10 22:24 Order name: EKG - Nurse/Tech; Complete Time: 22:58 cp 08/10 22:24 Order name: IV Saline Lock; Complete Time: 22:46 cp 08/10 22:24 Order name: Labs collected and sent; Complete Time: 22:46 cp 08/10 22:24 Order name: O2 Per Protocol; Complete Time: 22:46 cp 08/10 22:24 Order name: O2 Sat Monitoring; Complete Time: 22:46 cp EC/11 23:03 Rate is 62 beats/min. Rhythm is regular. AK interval is normal. QRS interval is normal. cp QT interval is normal. T waves are Inverted in lead aVR. Interpreted by me. Reviewed by me. Administered Medications: No medications were administered Disposition: 08/11 04:06 Co-signature as Attending Physician, Tod Lira MD I agree with the assessment sp4 and plan of care. I reviewed the patient's care provided by the Advanced Practice Provider and agree with the diagnosis and treatment plan. Disposition Summary: 08/12/23 00:47 Discharge Ordered Notes: Location: Home cp Problem: an ongoing problem cp Symptoms: have improved cp Condition: Stable cp Diagnosis - Iron deficiency anemia, unspecified cp - Weakness cp - Syncope Near cp - Dizziness and giddiness cp Followup: cp - With: Savanna Whipple MD - When: 1 week - Reason: Recheck today's complaints Discharge Instructions: - Discharge Summary Sheet cp - Iron Deficiency Anemia, Adult cp - Iron-Rich Diet cp - Dizziness cp - Near-Syncope cp - Weakness cp - Preventing Iron Deficiency Anemia, Adult cp - Iron Level and Total Iron-Binding Capacity Tests cp Forms: - Medication Reconciliation Form cp - Antibiotic Education cp - Prescription Opioid Use cp - Patient Portal Instructions cp - Leadership Thank You Letter cp Prescriptions: - Ferrous Sulfate 325 mg (65 mg Iron) Oral Tablet - take 1 tablet ORAL route every 8 hours; 90 tablet; Refills: 0, Product cp Selection Permitted Signatures: Dispatcher [employer] EDMS Riki Hendrickson PA PA cp Potepalov, Sergey, MD MD sp4 Irma Alvarado RN RN tm6 Corrections: (The following items were deleted from the chart) 08/10 22:25 22:25 BASIC METABOLIC PANEL+C.LAB.BRZ ordered. EDMS EDMS 22:25 22:25 CBC+H.LAB.BRZ ordered. EDMS EDMS 22:25 22:25 HEPATIC FUNCTION+C.LAB.BRZ ordered. EDMS EDMS 22:25 22:25 MAGNESIUM+C.LAB.BRZ ordered. EDMS EDMS 22:25 22:25 PROTIME (+INR)+COAG.LAB.BRZ ordered. EDMS EDMS 22:25 22:25 Troponin High Sensitivity+C.LAB.BRZ ordered. EDMS EDMS 22:25 22:25 Urinalysis W/Microscopic+U.LAB.BRZ ordered. EDMS EDMS 22:25 22:25 Test, Urine+UC.LAB.BRZ ordered. EDMS EDMS 23:46 23:46 TRANSFERRIN SAT/IRON BINDING+C.LAB.BRZ ordered. EDMS EDMS 23:46 23:46 FERRITIN+C.LAB.BRZ ordered. EDMS EDMS
--- NOTE | 2023-08-12 00:48 | ER ---
Nurse's Notes [facility] Name: Sally Navarro Age: 53 yrs Sex: Female : 1970 Arrival Date: 08/11/2023 Time: 21:49 Bed 20 Private MD: Diagnosis: Iron deficiency anemia, unspecified;Weakness;Syncope Near;Dizziness and giddiness Presentation: 08/10 21:56 Chief complaint: Patient states: dizzy x3 days, felt like she was going to pass out, tm6 lightheaded, feeling weak. Feeling nauseous. Coronavirus screen: Vaccine status: Patient reports being unvaccinated. Ebola Screen: Patient denies travel to an Ebola-affected area in the 21 days before illness onset. Initial Sepsis Screen: Does the patient meet any 2 criteria? No. Patient's initial sepsis screen is negative. Does the patient have a suspected source of infection? No. Patient's initial sepsis screen is negative. Risk Assessment: Do you want to hurt yourself or someone else? Patient reports no desire to harm self or others. Onset of symptoms was August 08, 2023. 21:56 Method Of Arrival: Ambulatory tm6 21:56 Acuity: RONA 3 tm6 Triage Assessment: 21:59 General: Appears in no apparent distress. Behavior is calm, cooperative. Pain: Denies tm6 pain. EENT: No signs and/or symptoms were reported regarding the EENT system. Neuro: Reports dizziness, since three days weakness since three days. Cardiovascular: Patient's skin is warm and dry. Respiratory: Airway is patent Respiratory effort is even, unlabored, Respiratory pattern is regular, symmetrical. GI: No signs and/or symptoms were reported involving the gastrointestinal system. : No signs and/or symptoms were reported regarding the genitourinary system. Derm: No signs and/or symptoms reported regarding the dermatologic system. Musculoskeletal: Reports weakness in general weakness. 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 - Infectious Disease History:: Denies. - Social history:: Smoking status: Patient denies any tobacco usage or history of. Patient/guardian denies using alcohol. Screenin:29 [facility] ED Fall Risk Assessment (Adult) History of falling in the last 3 months, me1 including since admission No falls in past 3 months (0 pts) Confusion or Disorientation No (0 pts) Intoxicated or Sedated No (0 pts) Impaired Gait No (0 pts) Mobility Assist Device Used No (0 pt) Altered Elimination No (0 pt) Score/Fall Risk Level 0 - 2 = Low Risk Maintained a safe environment, Provided non-skid footwear, Hourly rounding (assess needs \T\ fall precautionary measures) done. Abuse screen: Denies threats or abuse. Nutritional screening: No deficits noted. Tuberculosis screening: No symptoms or risk factors identified. Assessment: 22:29 General: Appears comfortable, well groomed, well developed, well nourished, Behavior is me1 calm, cooperative, appropriate for age, Reports feeling weak, dizzy, lightheaded and nauseated x 3 days. Pain: Denies pain. Neuro: Level of Consciousness is awake, alert, obeys commands, Oriented to person, place, time, situation, Appropriate for age. Neuro: Reports dizziness, since 3 days. Cardiovascular: Patient's skin is warm and dry. Cardiovascular: Reports fatigue, lightheadedness, nausea. Respiratory: Airway is patent Respiratory effort is even, unlabored, Respiratory pattern is regular, symmetrical. GI: Reports nausea. : No signs and/or symptoms were reported regarding the genitourinary system. EENT: No signs and/or symptoms were reported regarding the EENT system. Derm: Skin is intact, is healthy with good turgor, Skin is pink, warm \T\ dry. Musculoskeletal: No signs and/or symptoms reported regarding the musculoskeletal system. 08/11 01:16 Reassessment: Patient appears in no apparent distress at this time. tm6 Vital Signs: 08/10 21:56 BP 142 / 80; Pulse 74; Resp 19; Temp 97.4(TE); Pulse Ox 99% ; Weight 100.7 kg (R); tm6 Height 5 ft. 8 in. (R); Pain 0/10; 22:15 BP 173 / 87 Supine; Pulse 67; Resp 17; Pulse Ox 99% ; me1 22:16 BP 164 / 92 Sitting; Pulse 67; Resp 17; Pulse Ox 99% ; me1 22:17 BP 177 / 101 Standing; Pulse 65; Resp 17; Pulse Ox 99% ; me1 23:00 BP 148 / 84; Pulse 63; Resp 16; Pulse Ox 98% on R/A; me1 0612 00:05 BP 163 / 89; Pulse 73; Resp 14; Pulse Ox 97% on R/A; Pain 0/10; tm6 01:16 BP 163 / 97; Pulse 62; Resp 19; Temp 97.7(TE); Pulse Ox 99% on R/A; Pain 0/10; tm6 08/10 21:56 Body Mass Index 33.75 (100.70 kg, 172.72 cm) tm6 08/10 21:56 Pain Scale: Adult tm6 08/11 00:05 Pain Scale: Adult tm6 01:16 Pain Scale: Adult 6 ED Course: 08/10 21:53 Patient arrived in ED. jj6 21:55 Riki Hendrickson PA is PHCP. cp 21:55 Tod Lira MD is Attending Physician. cp 21:59 Triage completed. tm6 21:59 Arm band placed on right wrist. tm6 22:19 Lynn Foster, AMIE is Primary Nurse. me1 22:29 Patient has correct armband on for positive identification. Bed in low position. [place] [facility] [place] reach. Side rails up X 1. Provided Education on: POC. Verbalized understanding. . Client placed on continuous cardiac and pulse oximetry monitoring. NIBP monitoring applied. hospital monitor on. Pulse ox on. NIBP on. 22:29 No provider procedures requiring assistance completed. me1 22:41 Initial lab(s) drawn, by ak, sent to lab. Urine collected: clean catch specimen, [facility] [place]. Inserted saline lock: 22 gauge in right antecubital area, using aseptic technique. 22:45 XRAY Chest (1 view) In Process Unspecified. EDMS 22:46 Basic Metabolic Panel Sent. me1 22:46 CBC with Diff Sent. me1 22:46 LFT's Sent. me1 22:46 Magnesium Sent. me1 22:46 PT-INR Sent. me1 22:46 Troponin HS Sent. me1 22:46 Test, Urine Sent. me1 22:46 Urinalysis W/Microscopic Sent. me1 23:44 CT Head Brain wo Cont In Process Unspecified. EDMS 08/11 00:46 Savanna Whipple MD is Referral Physician. cp 01:17 IV discontinued, intact, bleeding controlled, No redness/swelling at site. Pressure tm6 dressing applied. Administered Medications: No medications were administered Medication: 08/10 22:29 VIS not applicable for this client. me1 Outcome: 08/11 00:47 Discharge ordered by . cp 01:16 Discharged to home ambulatory, tm6 01:16 Condition: stable 01:16 Discharge instructions given to patient, Instructed on discharge instructions, follow up and referral plans. medication usage, Demonstrated understanding of instructions, follow-up care, medications, Prescriptions given X 1, 01:17 Patient left the ED. tm6 Signatures: Dispatcher [employer] EDWI Riki Hendrickson PA PA cp Jeffries, Jennifer jj6 Lynn Foster, AMIE RN me1 Irma Alvarado RN RN tm6
[2023-08-12 01:43] VITALS: BP 163/97; TEMP 97.7; O2SAT 99
--- NOTE | 2023-08-12 09:50 | RAD REPORT ---
EXAM DESCRIPTION: Chest Single View CLINICAL HISTORY: 53-year-old female with generalized weakness. TECHNIQUE: Single view, AP portable chest was obtained. COMPARISON: None. FINDINGS: Unremarkable cardiac and mediastinal silhouette. Heart size is normal. Lungs are clear without focal opacity, pneumothorax or pleural effusions. The visualized bones are within normal limits. IMPRESSION: No acute cardiopulmonary abnormalities. Electronically signed by: Maribell Ingram MD 08/11/2023 11:03 PM CDT RP Due to temporary technical issues with the PACS/Fluency reporting system, reports are being signed by the in house radiologist without review as a courtesy to ensure prompt reporting. The interpreting r adiologist is fully responsible for the content of the report.
--- NOTE | 2023-08-12 12:38 | RAD REPORT ---
EXAM DESCRIPTION: CT Head Without Intravenous Contrast CLINICAL HISTORY: The patient is 53 years old and is Female; Dizziness; Weakness TECHNIQUE: Axial computed tomography images of the head/brain without intravenous contrast. Sagitt al and coronal reformatted images were created and reviewed. This CT exam was performed using one o r more of the following dose reduction techniques: automated exposure control, adjustment of the mA and/or kV according to patient size, and/or use of iterative reconstruction technique. COMPARISON: None FINDINGS: BRAIN: No extra-axial fluid collection. No intracranial hemorrhage. No transtentorial he rniation. No focal chris-white matter differentiation abnormality. MIDLINE SHIFT: None. VENTRICLES: Unremarkable No ventriculomegaly. BONES/JOINTS: No fracture of the calvarium or visualized facial bones. SOFT TISSUES: Unremarkable SINUSES: No masses, bony erosion or evidence of acute sinusitis. MASTOID AIR CELLS: Small left mastoid air cell effusion. NASAL CAVITY/SEPTUM: Leftward anterior nasal septal deviation. IMPRESSION: 1. No acute intracranial abnormality. 2. Small left mastoid air cell effusion. Correlate clinically for mastoiditis. Electronically signed by: Jimbo Blanca MD 08/12/2023 12:28 AM CDT Due to temporary technical issues with the PACS/Fluency reporting system, reports are being signed by the in house radiologist without review as a courtesy to ensure prompt reporting. The interpreting r adiologist is fully responsible for the content of the report.
--- NOTE | 2023-08-13 12:14 | EKG ---
Test Date: 2023-08-11 Test Time: 22:56:23 Hotel Reservationist: RV MEASUREMENT RESULTS: Intervals: Rate: 62 SC: 186 QRSD: 84 QT: 434 QTc: 440 [place]: P: 42 SC: 186 QRS: 24 T: 27 INTERPRETIVE STATEMENTS: Normal sinus rhythm Cannot rule out Anterior infarct, age undetermined Abnormal ECG Compared to ECG 09/24/2020 19:24:35 Myocardial infarct finding now present Electronically Signed On 08-13-23 12:13:04 CDT by Gagan Pantoja
== END 2023-08-12 01:17 | disposition home or self-care (01) ==
LOC: ER 21:49
DX: D50.9 Iron deficiency anemia, unspecified (principal); R55 Syncope and collapse; R42 Dizziness and giddiness
CPT/HCPCS: 36415; 70450; 71045; 80048; 80076; 81001; 81025; 82728; 83540; 83735; 84466; 84484; 85025; 85610; 93005; 99284

== ENCOUNTER 2024-01-23 23:47 | Emergency (ER) | payer OTHER ==
[2024-01-24 00:46] LABS: Absolute Basophils 0.2 K/uL (0-0.5); Absolute Eosinophils 0.2 K/uL (0-0.5); Absolute Lymphocytes (CBC) 2.7 K/uL (0.7-4.9); Absolute Monocytes 0.7 K/uL (0.1-1.3); Absolute Neutrophil 5.4 K/uL (1.8-8.0); Basophils % 2.3 % (0-1.3); Eosinophils % 2.3 % (0-4.4); Hematocrit 36.4 % (36.0-45.0); Hemoglobin 11.4 g/dL (12.0-15.0); Lymphocytes % 29.5 % (15.3-44.8); MCH 22.8 pg (27.0-35.0); MCHC 31.4 g/dL (32.0-36.0); MCV 72.7 fL (80-100); MPV 6.8 fL (7.6-11.3); Monocytes % 7.4 % (3.3-12.3); Neutrophils % 58.5 % (41.7-73.7); Nucleated Red Blood Cells % 0.1 % (0-0); Platelets 434 thou/uL (152-406); RBC Red Blood Cell Count 5.01 M/uL (3.86-4.86); Red Cell Distribution Width 15.7 % (12.1-15.2)
[2024-01-24 01:01] LABS: ALT/SGPT 20 U/L (13-56); AST/SGOT 12 U/L (15-37); Albumin 3.4 g/dL (3.4-5.0); Albumin/Globulin Ratio 0.9 (1.1-1.8); Alkaline Phosphatase 85 U/L (45-117); Anion Gap 9.7 mEq/L (5.0-15.0); BUN Blood Urea Nitrogen 19 mg/dL (7-18); Bicarbonate 27 mEq/L (21-32); Bilirubin Total 0.3 mg/dL (0.2-1.0); Globulin 3.9 g/dL (2.3-3.5); Glomerular Filtration Rate 62 ml/min (=/>90); Glucose Level 96 mg/dL (74-106); NT PRO-BNP 116 pg/mL (<125); Potassium 3.7 mEq/L (3.5-5.1); Protein, Total 7.3 g/dL (6.4-8.2); Sodium Level 137 mEq/L (136-145); Troponin High Sensitivity 5.8 pg/mL (<58.9)
[2024-01-24 01:02] LABS: Bilirubin Direct < 0.2 mg/dL (0-0.2); Bilirubin Indirect, Calculated 0.1 mg/dL (0.2-0.8)
--- NOTE | 2024-01-24 02:01 | RAD REPORT ---
CLINICAL HISTORY: Chest pain, diarrhea. COMPARISON: CT Abdomen Pelvis 07/01/2023. TECHNIQUE: CT CHEST ABDOMEN PELVIS WITHOUT IV CONTRAST on 01/24/2024 12:12 AM OFFICE ADMIN This exam was performed according to our departmental dose-optimization program, which includes autom ated exposure control, adjustment of the mA and/or kV according to patient size and/or use of iterative reconstruction technique. FINDINGS: Chest: The heart is normal in size. There is no pericardial effusion. Intrathoracic lymph nodes are n ot enlarged. There is no pleural effusion, pleural thickening or pneumothorax. Central airways are patent. Lungs a re clear with no consolidation, mass or interstitial lung disease. Abdomen: The liver is normal in appearance. There is no biliary dilatation. There is a moderate hiata l hernia. Gallbladder is decompressed. The pancreas and spleen are normal in appearance. The adrenal glands and kidneys are unremarkable. Abdominal aorta is normal in course and caliber without aneurysm. There is no free air. There is no r etroperitoneal adenopathy. Pelvis: There is no bowel obstruction. Urinary bladder is unremarkable. There is no free fluid. Uteru s is normal in size. Appendectomy was performed. Skeleton: There are no acute osseous findings. No suspicious bony lesions. IMPRESSION: No acute process. Hiatal hernia. Electronically signed by: Moody Chaudhry MD 01/24/2024 01:22 AM OFFICE ADMIN Due to temporary technical issues with the PACS/[employer] reporting system, reports are being donna d by the in-house radiologist without review as a courtesy to ensure prompt reporting the interpreting radiologist is fully responsible for the content of the report. Transcribed Date/Time: 01/24/2024 2:01 AM
--- NOTE | 2024-01-24 02:36 | EDPHYS ---
Physician Documentation [facility] Name: Sally Navarro Age: 53 yrs Sex: Female : 1970 Arrival Date: 01/23/2024 Time: 23:47 Bed 19 Private MD: ED Physician Rylan Donovan HPI: 01/23 00:16 This 53 yrs old Female presents to ER via Ambulatory with complaints of Arm Pain, Chest rt Pain, Diarrhea. 00:16 Patient presents to the ED with 1 week of an intermittent left-sided chest pain. She rt reports a dyspnea, generalized weakness. She has been off of her antihypertensive medicines for some time. Does report of bilateral extremity edema, that worsens during the day. Reports diarrhea, nonbloody and nonmelanotic starting today as well. Denies other acute complaints, symptoms are moderate in severity, no other aggravating or alleviating factors.. 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 Flu vaccine is not up to date. - Infectious Disease History:: Denies. - Social history:: Smoking status: Patient denies any tobacco usage or history of. - Family history:: not pertinent. ROS: 00:16 Constitutional: Negative for fever, chills, and weight loss, MS/Extremity: Negative for rt injury and deformity, Skin: Negative for injury, rash, and discoloration, Neuro: Negative for headache, weakness, numbness, tingling, and seizure, 00:16 Cardiovascular: Positive for chest pain, edema, 00:16 Respiratory: Positive for shortness of breath, Negative for cough, 00:16 Abdomen/GI: Positive for diarrhea, Negative for abdominal pain, nausea and vomiting, Exam: 00:16 Constitutional: This is a well developed, well nourished patient who is awake, alert, rt and in no acute distress. Head/Face: Normocephalic, atraumatic. Chest/axilla: Normal chest wall appearance and motion. Nontender with no deformity. No lesions are appreciated. Cardiovascular: Regular rate and rhythm with a normal S1 and S2. No gallops, murmurs, or rubs. Normal PMI, no JVD. No pulse deficits. Respiratory: Lungs have equal breath sounds bilaterally, clear to auscultation and percussion. No rales, rhonchi or wheezes noted. No increased work of breathing, no retractions or nasal flaring. Abdomen/GI: Soft, non-tender, with normal bowel sounds. No distension or tympany. No guarding or rebound. No evidence of tenderness throughout. Skin: Warm, dry with normal turgor. Normal color with no rashes, no lesions, and no evidence of cellulitis. Neuro: Awake and alert, GCS 15, oriented to person, place, time, and situation. Cranial nerves II-XII grossly intact. Motor strength 5/5 in all extremities. Sensory grossly intact. Cerebellar exam normal. Normal gait. 00:16 Musculoskeletal/extremity: 4+ pitting bilateral lower extremity edema. 00:47 ECG was reviewed by the Attending Physician. rt Vital Signs: 00:00 BP 178 / 109; Pulse 66; Resp 18; Pulse Ox 100% on R/A; Pain 0/10; rg5 00:01 BP 183 / 108; Pulse 73; Resp 15; Temp 97.8; Pulse Ox 99% ; Weight 104.33 kg; Height 5 vc1 ft. 8 in. ; Pain 7/10; 01:00 BP 155 / 95; Pulse 75; Resp 17; Temp 98(O); Pain 0/10; rg5 02:12 BP 137 / 86; Pulse 75; Resp 17 S; Pulse Ox 98% on R/A; Pain 0/10; rg5 00:01 Body Mass Index 34.97 (104.33 kg, 172.72 cm) vc1 00:00 Pain Scale: Adult rg5 00:01 Pain Scale: Adult vc1 01:00 Pain Scale: Adult rg5 02:12 Pain Scale: Adult rg5 MDM: 00:02 Medical Screening Exam initiated rt 03:49 Differential diagnosis: ACS, CHF, peripheral edema renal dysfunction. Data reviewed: rt vital signs, nurses notes, lab test result(s), EKG, radiologic studies. Consideration of Admission/Observation Escalation of care including admission/observation considered. Given chronicity of symptoms, 1 set of enzymes is sufficient to rule out acute coronary syndrome, rest of workup is benign. Patient instructed to follow-up with cardiology as an outpatient.. Independent interpretation of the following test(s) in the Emergency Department CT Scan: My interpretation is No pulmonary edema seen on my interpretation of CT scan images. Care significantly affected by the following chronic conditions: Hypertension. Counseling: I had a detailed discussion with the patient and/or guardian regarding the historical points, exam findings, and any diagnostic results supporting the discharge/admit diagnosis, lab results, radiology results, the need for outpatient follow up, to return to the emergency department if symptoms worsen or persist or if there are any questions or concerns that arise at home. 01/23 00:11 Order name: Basic Metabolic Panel; Complete Time: : rt 01/23 00:11 Order name: CBC with Diff; Complete Time: : rt 01/23 00:11 Order name: LFT's; Complete Time: 01: rt 01/23 00:11 Order name: NT PRO-BNP; Complete Time: : rt 01/23 00:11 Order name: Troponin HS; Complete Time: 01: rt 01/23 00:11 Order name: CT Chest Abdomen Pelvis W/O Contrast rt 01/23 00:11 Order name: EKG; Complete Time: 00:12 rt 01/23 00:11 Order name: Cardiac monitoring; Complete Time: 00:46 rt 01/23 00:11 Order name: EKG - Nurse/Tech; Complete Time: 00:46 rt 01/23 00:11 Order name: IV Saline Lock; Complete Time: 00:46 rt 01/23 00:11 Order name: Labs collected and sent; Complete Time: 00:46 rt 01/23 00:11 Order name: O2 Per Protocol; Complete Time: 00:46 rt 01/23 00:11 Order name: O2 Sat Monitoring; Complete Time: 00:46 rt EC:47 Rate is 60 beats/min. Rhythm is regular, Normal Sinus Rhythm with No ectopy. QRS [place] rt is Normal. [place] interval is normal. QRS interval is normal. QT interval is normal. No Q waves. T waves are Normal. No ST changes noted. Interpreted by me. Administered Medications: No medications were administered Disposition Summary: 01/24/24 02:36 Discharge Ordered Notes: Location: Home rt Problem: new rt Symptoms: have improved rt Condition: Stable rt Diagnosis - Chest pain, unspecified rt - Edema, unspecified rt - Diarrhea, unspecified rt Followup: rt - With: Rahul Moreira MD - When: 2 - 3 days - Reason: Discharge Instructions: - Discharge Summary Sheet rt - Nonspecific Chest Pain, Adult rt - Diarrhea, Adult rt - Peripheral Edema rt Forms: - Medication Reconciliation Form rt - Antibiotic Education rt - Prescription Opioid Use rt - Patient Portal Instructions rt - Leadership Thank You Letter rt Signatures: Dispatcher [employer] Aracely Browne, RN RN vc1 Rylan Donovan MD MD rt
--- NOTE | 2024-01-24 02:36 | ER ---
Nurse's Notes [facility] Name: Sally Navarro Age: 53 yrs Sex: Female : 1970 Arrival Date: 01/23/2024 Time: 23:47 Bed 19 Private MD: Diagnosis: Chest pain, unspecified;Edema, unspecified;Diarrhea, unspecified Presentation: 01/23 00:01 Chief complaint: Patient states: chest pain times five days with throbbing to left arm, vc1 diarrhea that started today. Coronavirus screen: Client denies travel out of the [place] in the last 14 days. At this time, the client does not indicate any symptoms associated with coronavirus-19. Ebola Screen: Patient negative for fever greater than or equal to 101.5 degrees Fahrenheit, and additional compatible Ebola Virus Disease symptoms Patient denies exposure to infectious person. Patient denies travel to an Ebola-affected area in the 21 days before illness onset. No symptoms or risks identified at this time. Initial Sepsis Screen: Does the patient meet any 2 criteria? No. Patient's initial sepsis screen is negative. Does the patient have a suspected source of infection? No. Patient's initial sepsis screen is negative. Risk Assessment: Do you want to hurt yourself or someone else? Patient reports no desire to harm self or others. Onset of symptoms was January 19, 2024. 00:01 Method Of Arrival: Ambulatory vc1 00:01 Acuity: RONA 3 vc1 Triage Assessment: 00:04 General: Appears in no apparent distress. uncomfortable, well groomed, well developed, vc1 well nourished, Behavior is calm, cooperative, appropriate for age. Pain: Complains of pain in left breast Pain does not radiate. Pain currently is 7 out of 10 on a pain scale. EENT: No deficits noted. No signs and/or symptoms were reported regarding the EENT system. Neuro: Level of Consciousness is awake, alert, obeys commands, Oriented to person, place, time, situation, Appropriate for age. Cardiovascular: Capillary refill < 3 seconds Patient's skin is warm and dry. Cardiovascular: Chest pain is described as severe, Pain is 7 out of 10 on a pain scale. quality is sharp. Respiratory: Airway is patent Respiratory effort is even, unlabored, Respiratory pattern is regular, symmetrical. GI: Abdomen is round non-distended. : No deficits noted. No signs and/or symptoms were reported regarding the genitourinary system. Derm: Skin is intact, is healthy with good turgor, Skin is dry, Skin is normal, Skin temperature is warm. Musculoskeletal: Circulation, motion, and sensation intact. Range of motion: intact in all extremities. 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 Flu vaccine is not up to date. - Infectious Disease History:: Denies. - Social history:: Smoking status: Patient denies any tobacco usage or history of. - Family history:: not pertinent. Screenin:04 Abuse screen: Denies threats or abuse. Nutritional screening: No deficits noted. vc1 Tuberculosis screening: No symptoms or risk factors identified. 00:05 [facility] ED Fall Risk Assessment (Adult) History of falling in the last 3 months, rg5 including since admission No falls in past 3 months (0 pts) Confusion or Disorientation No (0 pts) Intoxicated or Sedated No (0 pts) Impaired Gait No (0 pts) Mobility Assist Device Used No (0 pt) Altered Elimination No (0 pt) Score/Fall Risk Level 0 - 2 = Low Risk. 00:05 [facility] ED Fall Risk Assessment (Adult) Score/Fall Risk Level 0 - 2 = Low Risk rg5 Oriented to surroundings, Maintained a safe environment, Hourly rounding (assess needs \T\ fall precautionary measures) done. Assessment: 00:02 General: Appears in no apparent distress. Behavior is calm, cooperative, appropriate rg5 for age. Pain: Complains of pain in chest Pain radiates to left arm Quality of pain is described as throbbing, Pain began 1 hour ago. Is intermittent. Neuro: Level of Consciousness is awake, alert, obeys commands, Oriented to person, place, time, situation. Cardiovascular: Reports chest pain, Patient's skin is warm and dry. Respiratory: Airway is patent Trachea midline Respiratory effort is even, unlabored, Respiratory pattern is regular, symmetrical. GI: Abdomen is round obese, Bowel sounds present X 4 quads. Reports diarrhea. : No signs and/or symptoms were reported regarding the genitourinary system. EENT: No deficits noted. Derm: Skin is intact, Skin is dry, Skin is normal, Skin temperature is warm. Musculoskeletal: Circulation, motion, and sensation intact. Range of motion: intact in all extremities. 01:00 Reassessment: No changes from previously documented assessment. Patient and/or family rg5 updated on plan of care and expected duration. Pain level reassessed. 02:13 Reassessment: No changes from previously documented assessment. Patient and/or family rg5 updated on plan of care and expected duration. Pain level reassessed. Vital Signs: 00:00 BP 178 / 109; Pulse 66; Resp 18; Pulse Ox 100% on R/A; Pain 0/10; rg5 00:01 BP 183 / 108; Pulse 73; Resp 15; Temp 97.8; Pulse Ox 99% ; Weight 104.33 kg; Height 5 vc1 ft. 8 in. ; Pain 7/10; 01:00 BP 155 / 95; Pulse 75; Resp 17; Temp 98(O); Pain 0/10; rg5 02:12 BP 137 / 86; Pulse 75; Resp 17 S; Pulse Ox 98% on R/A; Pain 0/10; rg5 00:01 Body Mass Index 34.97 (104.33 kg, 172.72 cm) vc1 00:00 Pain Scale: Adult rg5 00:01 Pain Scale: Adult vc1 01:00 Pain Scale: Adult rg5 02:12 Pain Scale: Adult rg5 ED Course: 01/22 23:51 Patient arrived in ED. gm2 23:51 Rylan Donovan MD is Attending Physician. rt 23:53 Rufus García RN is Primary Nurse. rg5 01/23 00:03 Triage completed. vc1 00:04 Arm band placed on right wrist. vc1 00:04 Patient has correct armband on for positive identification. Bed in low position. Call vc1 light in reach. Pulse ox on. NIBP on. 00:05 Door closed. Warm blanket given. rg5 00:05 No provider procedures requiring assistance completed. Patient maintains SpO2 rg5 saturation greater than 95% on room air. 00:20 Inserted saline lock: 20 gauge in right antecubital area, using aseptic technique. rg5 Blood collected. Flushed with 10 mL NS. 00:56 CT Chest Abdomen Pelvis W/O Contrast In Process Unspecified. EDMS 02:35 Rahul Moreira MD is Referral Physician. rt 02:42 Provided Education on: post er care. rg5 02:42 IV discontinued, bleeding controlled, No redness/swelling at site. Pressure dressing rg5 applied. Administered Medications: No medications were administered Medication: 00:05 VIS not applicable for this client. rg5 Outcome: 02:36 Discharge ordered by . rt 02:43 Discharged to home ambulatory, rg5 02:43 Condition: good 02:43 Discharge instructions given to patient, 02:51 Patient left the ED. rg5 Signatures: Dispatcher [employer] EDMS Aracely Jose RN RN vc1 Rylan Donovan MD MD rt Shital Santo gm2 Rufus García RN RN rg5
[2024-01-24 04:36] VITALS: TEMP 98
[2024-01-24 04:41] VITALS: BP 137/86; O2SAT 98
--- NOTE | 2024-01-25 12:00 | EKG ---
Test Date: 2024-01-24 Test Time: 00:41:49 Sql Developer Dba: MARY ANN MEASUREMENT RESULTS: Intervals: Rate: 60 GA: 178 QRSD: 94 QT: 420 QTc: 420 Ebony: P: 41 GA: 178 QRS: 49 T: 56 INTERPRETIVE STATEMENTS: Normal sinus rhythm Normal ECG Compared to ECG 08/11/2023 22:56:23 Myocardial infarct finding no longer present Electronically Signed On 01-25-24 11:59:12 RUG BACKING STENCILER by Gagan Pantoja
== END 2024-01-24 02:51 | disposition home or self-care (01) ==
LOC: ER 23:47
DX: R07.9 Chest pain, unspecified (principal); R60.9 Edema, unspecified; R19.7 Diarrhea, unspecified; I10 Essential (primary) hypertension; Z28.310 Unvaccinated for COVID-19
CPT/HCPCS: 36415; 71250; 74176; 80048; 80076; 83880; 84484; 85025; 93005; 99284

== ENCOUNTER 2024-04-14 18:28 | Emergency (ER) | payer BC, OTHER ==
--- NOTE | 2024-04-14 19:56 | RAD REPORT ---
EXAMINATION: US UPPER EXTREMITY VENOUS UNILATE CLINICAL INDICATION: Female, 53 years old. [facility] MAIN PAIN Bed Name: [facility] TECHNIQUE: Complete venous duplex sonography of the left upper extremity was performed. The examinati on included compression for vein patency, color Doppler imaging and flow augmentation in response to distal compression of the internal jugular, brachiocephalic, subclavian, axillary, brachial, radia l, ulnar, cephalic and basilic veins. COMPARISON: No prior exam. FINDINGS: Duplex sonography testing of the veins of the left upper extremity is completed. Color flow imaging s hows all veins to be compressible with appropriate color filling. Pulsatile and phasic flow is present within the upper extremity deep and superficial veins examined. IMPRESSION: There is no deep vein or superficial vein thrombosis.
--- NOTE | 2024-04-14 21:00 | RAD REPORT ---
EXAMINATION: ONE VIEW CHEST XR CLINICAL INDICATION: Female, 53 years old.,CHEST PAIN TECHNIQUE: Frontal chest projection is submitted. Examination is limited by patient positioning and t echnique. COMPARISON: 08/11/2023 FINDINGS: The lungs are well inflated and clear. No pneumothorax or sizable effusion. The heart is normal in s ize. Mediastinal contours are unremarkable. IMPRESSION: No acute intrathoracic abnormalities.
[2024-04-14 21:15] LABS: Absolute Basophils 0.1 K/uL (0-0.5); Absolute Eosinophils 0.2 K/uL (0-0.5); Absolute Lymphocytes (CBC) 3.5 K/uL (0.7-4.9); Absolute Monocytes 0.8 K/uL (0.1-1.3); Basophils % 0.8 % (0-1.3); Eosinophils % 1.9 % (0-4.4); Hematocrit 32.1 % (36.0-45.0); Hemoglobin 9.9 g/dL (12.0-15.0); Lymphocytes % 36.7 % (15.3-44.8); MCH 20.6 pg (27.0-35.0); MCHC 30.9 g/dL (32.0-36.0); MCV 66.7 fL (80-100); MPV 6.9 fL (7.6-11.3); Monocytes % 8.1 % (3.3-12.3); Neutrophils % 52.5 % (41.7-73.7); Platelets 488 thou/uL (152-406); RBC Red Blood Cell Count 4.81 M/uL (3.86-4.86); Red Cell Distribution Width 17.1 % (12.1-15.2)
[2024-04-14 21:32] LABS: ALT/SGPT 20 U/L (13-56); AST/SGOT 11 U/L (15-37); Albumin 3.4 g/dL (3.4-5.0); Albumin/Globulin Ratio 0.8 (1.1-1.8); Alkaline Phosphatase 90 U/L (45-117); Anion Gap 8.1 mEq/L (5.0-15.0); BUN Blood Urea Nitrogen 18 mg/dL (7-18); Bicarbonate 26 mEq/L (21-32); Bilirubin Direct < 0.2 mg/dL (0-0.2); Bilirubin Indirect, Calculated 0.1 mg/dL (0.2-0.8); Bilirubin Total 0.3 mg/dL (0.2-1.0); Globulin 4.2 g/dL (2.3-3.5); Glomerular Filtration Rate 77 ml/min (=/>90); Glucose Level 98 mg/dL (74-106); Magnesium 2.1 mg/dL (1.6-2.4); NT PRO-BNP 40 pg/mL (<125); Potassium 4.1 mEq/L (3.5-5.1); Protein, Total 7.6 g/dL (6.4-8.2); Sodium Level 135 mEq/L (136-145); Troponin High Sensitivity 5.2 pg/mL (<58.9)
[2024-04-14 21:37] LABS: PT Prothrombin Time 10.9 SECONDS (9.4-12.5); Protime INR 1.04
--- NOTE | 2024-04-14 21:58 | ER ---
Nurse's Notes [facility] Name: Sally Navarro Age: 53 yrs Sex: Female : 1970 Arrival Date: 04/14/2024 Time: 18:28 Bed DX4 Private MD: Diagnosis: Chest pain, unspecified Presentation: 04/14 18:57 Chief complaint: Patient states: left arm has been throbbing all day and is having iw chest pain when it throbs. Coronavirus screen: At this time, the client does not indicate any symptoms associated with coronavirus-19. Ebola Screen: No symptoms or risks identified at this time. 18:57 Method Of Arrival: Ambulatory iw 18:57 Acuity: RONA 3 iw 18:59 Initial Sepsis Screen: Does the patient meet any 2 criteria? No. Patient's initial iw sepsis screen is negative. Does the patient have a suspected source of infection? No. Patient's initial sepsis screen is negative. Risk Assessment: Do you want to hurt yourself or someone else? Patient reports no desire to harm self or others. Onset of symptoms was April 14, 2024. Triage Assessment: 22:00 General: Appears uncomfortable, Behavior is calm, cooperative. Pain: Complains of pain ha1 in left arm Pain currently is 4 out of 10 on a pain scale. Neuro: Level of Consciousness is awake, alert, obeys commands, Oriented to person, place, time, situation. Cardiovascular: Patient's skin is warm and dry. Respiratory: Airway is patent Respiratory effort is even, unlabored, Respiratory pattern is regular, symmetrical. Historical: - Allergies: 18:58 No Known Allergies; iw - Home Meds: 18:58 None [Active]; iw - PMHx: 18:58 Hypertension; Anemia; iw - PSHx: 18:58 knee surgery; Appendectomy; tubal ligation; iw - Immunization history:: Adult Immunizations not up to date. - Infectious Disease History:: Denies. - Social history:: Smoking status: Patient denies any tobacco usage or history of. Screenin:12 [facility] ED Fall Risk Assessment (Adult) History of falling in the last 3 months, iw including since admission No falls in past 3 months (0 pts) Confusion or Disorientation No (0 pts) Intoxicated or Sedated No (0 pts) Impaired Gait No (0 pts) Mobility Assist Device Used No (0 pt) Altered Elimination No (0 pt) Score/Fall Risk Level 0 - 2 = Low Risk Oriented to surroundings, Maintained a safe environment. Abuse screen: Denies threats or abuse. Nutritional screening: No deficits noted. Tuberculosis screening: No symptoms or risk factors identified. Assessment: 19:00 General: Appears in no apparent distress. Behavior is calm, cooperative. Pain: iw Complains of pain in chest and left arm Pain began. Neuro: Level of Consciousness is awake, alert, obeys commands, Oriented to person, place, time, situation, Moves all extremities. Cardiovascular: Patient's skin is warm and dry. Respiratory: Respiratory effort is even, unlabored, Respiratory pattern is regular, symmetrical. 22:11 Reassessment: Patient appears in no apparent distress at this time. Patient and/or iw family updated on plan of care and expected duration. Pain level reassessed. Patient is alert, oriented x 3, equal unlabored respirations, skin warm/dry/pink. 22:18 Reassessment: NOTIFIED CARE PROVIDER OF ELEVATED BP. ha1 Vital Signs: 18:58 BP 185 / 106; Pulse 71; Resp 18; Temp 97.6; Pulse Ox 100% on R/A; Weight 107.5 kg; iw Height 5 ft. 8 in. ; Pain 9/10; 22:11 BP 186 / 97; Pulse 74; Resp 16; Pulse Ox 98% on R/A; iw 18:58 Body Mass Index 36.04 (107.50 kg, 172.72 cm) iw 18:58 Pain Scale: Adult iw ED Course: 18:30 Patient arrived in ED. im 18:36 Mariah Lal PA-C is PHCP. sb4 18:36 Rylan Donovan MD is Attending Physician. sb4 18:57 Triage completed. iw 18:59 Arm band placed on. iw 19:30 UPPER EXTREMITY VENOUS UNILATE In Process Unspecified. EDMS 19:51 XRAY Chest (1 view) In Process Unspecified. EDMS 21:00 Danielle Bolton, RN is Primary Nurse. iw 21:00 Patient has correct armband on for positive identification. Bed in low position. Call ha1 light in reach. Side rails up X 1. Provided Education on: PLAN OF CARE . Client placed on continuous cardiac and pulse oximetry monitoring. NIBP monitoring applied. 21:00 Initial lab(s) drawn, by me, sent to lab. Inserted saline lock: 22 gauge in left iw antecubital area, using aseptic technique. Blood collected. Flushed with 10 mL NS. 21:12 Extremity Venous Uni Ltd US Sent. sb4 22:12 No provider procedures requiring assistance completed. IV discontinued, intact, iw bleeding controlled, No redness/swelling at site. Pressure dressing applied. Patient maintains SpO2 saturation greater than 95% on room air. Administered Medications: 21:57 CANCELLED (Physician Discretion): [id number] mg IVP once; give over 2 minutes sb4 21:57 CANCELLED (Physician Discretion): aspirinchewable tablet 324 mg PO once; 81 mg tablets sb4 x 4 Medication: 22:12 VIS not applicable for this client. iw Outcome: 21:58 Discharge ordered by MD. sb4 22:17 Discharged to home ambulatory, ha1 22:17 Condition: stable 22:17 Discharge instructions given to patient, Instructed on discharge instructions, follow up and referral plans. Demonstrated understanding of instructions, follow-up care, 22:19 Patient left the ED. ha1 Signatures: Dispatcher [employer] EDDanielle Yanes, RN RN iw Jing Mcfadden RN RN ha1 Mariah Lal, PADelC PA-C sb4 Nian Minor Corrections: (The following items were deleted from the chart) 18:59 18:58 BP 185 / 106; Pulse 71bpm; Resp 18bpm; Pulse Ox 100% RA; Temp 97.6F; iw iw
--- NOTE | 2024-04-14 21:58 | EDPHYS ---
Physician Documentation [facility] Name: Sally Navaror Age: 53 yrs Sex: Female : 1970 Arrival Date: 04/14/2024 Time: 18:28 Bed DX4 Private MD: ED Physician Rylan Donovan HPI: 04/14 20:11 This 53 yrs old Female presents to ER via Ambulatory with complaints of Arm Pain - sb4 left, Chest Tightness. 20:11 Patient reports left arm throbbing that radiates up to her left chest intermittently sb4 all day today. She denies any back pain, nausea, shortness of breath, diaphoresis. She states that she had a heart attack about 5 years ago in which she had a stent placed and was told another one of her arteries was blocked to about 70% but has not had any further intervention since due to insurance reasons. Additionally, she states that she has had a lot of swelling on her legs intermittently for quite some time now. Historical: - Allergies: 18:58 No Known Allergies; iw - Home Meds: 18:58 None [Active]; iw - PMHx: 18:58 Hypertension; Anemia; iw - PSHx: 18:58 knee surgery; Appendectomy; tubal ligation; iw - Immunization history:: Adult Immunizations not up to date. - Infectious Disease History:: Denies. - Social history:: Smoking status: Patient denies any tobacco usage or history of. ROS: 20:11 Constitutional: Negative for fever, chills, and weight loss, sb4 20:11 Cardiovascular: Positive for chest pain, 20:11 MS/extremity: Positive for pain, of the left arm, 20:11 All other systems are negative, Exam: 20:11 Constitutional: This is a well developed, well nourished patient who is awake, alert, sb4 and in no acute distress. Head/Face: Normocephalic, atraumatic. Eyes: Extra-ocular motions intact. Periorbital areas with no swelling, redness, or edema. ENT: Mucous membranes moist. Cardiovascular: Regular rate and rhythm with a normal S1 and S2. Respiratory: No increased work of breathing, no retractions or nasal flaring. Abdomen/GI: Soft, non-tender, no distension. Skin: Warm, dry with normal turgor. Normal color with no rashes, no lesions, and no evidence of cellulitis. MS/ Extremity: Pulses equal, no cyanosis. Neurovascular intact. Full, normal range of motion. Neuro: Awake and alert, GCS 15, oriented to person, place, time, and situation. Motor strength 5/5 in all extremities. Sensory grossly intact. Vital Signs: 18:58 BP 185 / 106; Pulse 71; Resp 18; Temp 97.6; Pulse Ox 100% on R/A; Weight 107.5 kg; iw Height 5 ft. 8 in. ; Pain 9/10; 22:11 BP 186 / 97; Pulse 74; Resp 16; Pulse Ox 98% on R/A; iw 18:58 Body Mass Index 36.04 (107.50 kg, 172.72 cm) iw 18:58 Pain Scale: Adult iw MDM: 18:57 Medical Screening Exam initiated sb4 21:59 Data reviewed: vital signs, nurses notes, lab test result(s), EKG, radiologic studies, sb4 and as a result, I will discharge patient. Consideration of Admission/Observation Escalation of care including admission/observation considered. Care significantly affected by the following chronic conditions: Hypertension. 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 Special discussion: Based on the patient's history, exam, and Dx evaluation, there is no indication for emergent intervention or inpatient Tx. It is understood by the patient/guardian that if the Sx's persist or worsen they need to return immediately for re-evaluation. ED course: patient's symptoms have improved, she is requesting to be discharged. I did recommend close follow up with cardiology. she understands. has an appointment with her PCP in 4 days. 04/14 18:59 Order name: Basic Metabolic Panel; Complete Time: 21:32 sb4 04/14 18:59 Order name: CBC with Diff; Complete Time: 21:32 sb4 04/14 18:59 Order name: LFT's; Complete Time: 21:32 sb4 04/14 18:59 Order name: Magnesium; Complete Time: 21:32 sb4 04/14 18:59 Order name: NT PRO-BNP; Complete Time: 21:32 sb4 04/14 18:59 Order name: PT-INR; Complete Time: 21:45 sb4 04/14 18:59 Order name: Troponin HS; Complete Time: 21:32 sb4 04/14 18:59 Order name: XRAY Chest (1 view); Complete Time: 21:00 sb4 04/14 19:04 Order name: Extremity Venous Uni Ltd US; Complete Time: 21:12 sb4 04/14 19:07 Order name: UPPER EXTREMITY VENOUS UNILATE; Complete Time: 19:57 EDMS 04/14 18:59 Order name: Cardiac monitoring sb4 04/14 18:59 Order name: EKG - Nurse/Tech; Complete Time: 21:12 sb4 04/14 18:59 Order name: IV Saline Lock sb4 04/14 18:59 Order name: Labs collected and sent sb4 04/14 18:59 Order name: O2 Per Protocol sb4 04/14 18:59 Order name: O2 Sat Monitoring sb4 EC:31 Rate is 69 beats/min. Rhythm is regular, Normal Sinus Rhythm. MD interval is normal at sb4 150 msec. QRS interval is normal at 78 msec. QT interval is normal at 400 msec. No Q waves. T waves are Normal. No ST changes noted. Clinical impression: Normal ECG and No evidence of ischemia. Interpreted by me. Reviewed by me. Administered Medications: 21:57 CANCELLED (Physician Discretion): [id number] mg IVP once; give over 2 minutes sb4 21:57 CANCELLED (Physician Discretion): aspirinchewable tablet 324 mg PO once; 81 mg tablets sb4 x 4 Disposition Summary: 04/14/24 21:58 Discharge Ordered Notes: Location: Home sb4 Problem: new sb4 Symptoms: have improved sb4 Condition: Stable sb4 Diagnosis - Chest pain, unspecified sb4 Followup: sb4 - With: Emergency Department - When: As needed - Reason: Trouble breathing, Worsening of condition Discharge Instructions: - Discharge Summary Sheet sb4 - Nonspecific Chest Pain, Adult, [id number] sb4 - Hypertension, Adult, [id number] sb4 - Iron Deficiency Anemia, Adult, [id number] sb4 Forms: - Patient Portal Instructions sb4 - Leadership Thank You Letter sb4 Addendum: 04/18/2024 07:01 Co-signature as Attending Physician, Rylan Donovan MD I reviewed the patient's care r t provided by the Advanced Practice Provider and agree with the diagnosis and treatment plan. Signatures: Dispatcher [employer] EDDanielle Yanes RN RN Mariah Choi, PA-C PA-C sb4 Rylan Donovan MD MD rt Corrections: (The following items were deleted from the chart) 04/14 19:00 19:00 BASIC METABOLIC PANEL+C.LAB.BRZ ordered. EDMS EDMS 19:00 19:00 CBC+H.LAB.BRZ ordered. EDMS EDMS 19:00 19:00 HEPATIC FUNCTION+C.LAB.BRZ ordered. EDMS EDMS 19:00 19:00 MAGNESIUM+C.LAB.BRZ ordered. EDMS EDMS 19:00 19:00 PROBNP+C.LAB.BRZ ordered. EDMS EDMS 19:00 19:00 PROTIME (+INR)+COAG.LAB.BRZ ordered. EDMS EDMS 19:00 19:00 Troponin High Sensitivity+C.LAB.BRZ ordered. EDMS EDMS 19:00 19:00 Chest Single View+RAD.RAD.BRZ ordered. EDMS EDMS 21:57 21:33 Furosemide IVP 20 mg IVP once; give over 2 minutes ordered. sb4 sb4 21:57 21:36 Aspirin PO Chewable Tablet 324 mg PO once; 81 mg tablets x 4 ordered. sb4 sb4
[2024-04-14 22:23] VITALS: TEMP 97.6
[2024-04-14 22:24] VITALS: BP 186/97; O2SAT 98
== END 2024-04-14 22:19 | disposition home or self-care (01) ==
LOC: ER 18:28
DX: R07.9 Chest pain, unspecified (principal); M79.602 Pain in left arm; I10 Essential (primary) hypertension
CPT/HCPCS: 36415; 71045; 80048; 80076; 83735; 83880; 84484; 85025; 85610; 93005; 93971; 99284

== ENCOUNTER 2024-06-22 13:53 | Emergency (ER) | payer BC, OTHER ==
[2024-06-22 14:31] LABS: Specific Gravity 1.023 (1.005-1.030); Urine Bacteria <20 /HPF (<20); Urine Bilirubin NEGATIVE (Negative); Urine Blood Negative (Negative); Urine Clarity Extremely Turbid (Clear); Urine Color Yellow (Yellow); Urine Culture Reflex Order REFLEXED; Urine Glucose NEGATIVE (Negative); Urine Ketones NEGATIVE (Negative); Urine Microscopic Reflex YN ORDER UMIC; Urine Mucus 3+ /HPF (None Seen); Urine Nitrite 2+ (Negative); Urine Protein TRACE (Negative); Urine RBC <5 /HPF (None Seen); Urine Urobilinogen Normal (Normal); Urine WBC 20-50 /HPF (<5); Urine WBC Clump Rare /HPF (None Seen); Urine Yeast (Budding) Trace /HPF (None Seen); Urine pH 6.5 (5.0-7.0)
[2024-06-22 14:52] LABS: Influenza A Ag Negative; Influenza B Ag Negative; SARS-CoV-2 Antigen Rapid Res Negative (Negative)
--- NOTE | 2024-06-22 15:19 | ER ---
Nurse's Notes [facility] Name: Sally Navarro Age: 53 yrs Sex: Female : 1970 Arrival Date: 06/22/2024 Time: 13:53 Bed IW1 Private MD: Diagnosis: UTI/ Urinary tract infection, site not specified;Acute upper respiratory infection, unspecified Presentation: 06/22 14:12 Chief complaint: Patient states: body aches, sore throat , urinary frequency X 1 week. iw Coronavirus screen: At this time, the client does not indicate any symptoms associated with coronavirus-19. Ebola Screen: No symptoms or risks identified at this time. Initial Sepsis Screen: Does the patient meet any 2 criteria? No. Patient's initial sepsis screen is negative. Does the patient have a suspected source of infection? No. Patient's initial sepsis screen is negative. Risk Assessment: Do you want to hurt yourself or someone else? Patient reports no desire to harm self or others. 14:12 Method Of Arrival: Ambulatory iw 14:12 Acuity: RONA 3 iw 14:13 Onset of symptoms was June 15, 2024. 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 - Infectious Disease History:: Denies. - Social history:: Smoking status: Patient denies any tobacco usage or history of. Screenin:28 [facility] ED Fall Risk Assessment (Adult) History of falling in the last 3 months, ll1 including since admission No falls in past 3 months (0 pts) Confusion or Disorientation No (0 pts) Intoxicated or Sedated No (0 pts) Impaired Gait No (0 pts) Mobility Assist Device Used No (0 pt) Altered Elimination No (0 pt) Score/Fall Risk Level 0 - 2 = Low Risk Maintained a safe environment, Hourly rounding (assess needs \T\ fall precautionary measures) done. Abuse screen: Denies threats or abuse. Nutritional screening: No deficits noted. Tuberculosis screening: No symptoms or risk factors identified. Assessment: 15:28 General: Appears in no apparent distress. Behavior is calm, cooperative, appropriate ll1 for age. Pain: Complains of pain in throat Quality of pain is described as aching. Respiratory: Reports cough that is. : Reports urinary frequency. EENT: Reports pain when swallowing. 15:29 Respiratory: Airway is patent Respiratory effort is even, unlabored, Breath sounds are ll1 coarse bilaterally. EENT: Throat is clear. Vital Signs: 14:13 BP 142 / 77; Pulse 85; Resp 19; Temp 98.4; Pulse Ox 99% ; Weight 106.59 kg; Height 5 iw ft. 8 in. ; Pain 0/10; 14:13 Body Mass Index 35.73 (106.59 kg, 172.72 cm) iw 14:13 Pain Scale: Adult iw ED Course: 13:56 Patient arrived in ED. al6 13:57 Mirta Stone FNP-C is [facility]. kb 13:57 Riki Doyle MD is Attending Physician. kb 14:13 Triage completed. iw 14:14 Arm band placed on. iw 14:21 Danielle Bolton, RN is Primary Nurse. iw 14:21 Group A Streptococcus Rapid Sent. iw 14:21 Urinalysis w/ reflexes Sent. iw 14:21 COVID-19 Ag + Flu A+B Ag Sent. iw 15:29 No provider procedures requiring assistance completed. Patient did not have IV access ll1 during this emergency room visit. 15:30 Patient has correct armband on for positive identification. Bed in low position. ll1 Provided Education on: finish all prescribed antibiotics. Cardiac monitoring not applicable on this patient. Administered Medications: No medications were administered Medication: 15:30 VIS not applicable for this client. ll1 Outcome: 15:18 Discharge ordered by . kb 15:29 Discharged to home ambulatory, ll1 15:29 Condition: stable 15:29 Discharge instructions given to patient, Instructed on discharge instructions, follow up and referral plans. medication usage, Demonstrated understanding of instructions, follow-up care, medications, Prescriptions given X 1, 15:31 Patient left the ED. ll1 Addendum: 06/24/2024 08:07 Addendum: Culture Results: Positive urine culture. No further action required. Bacteria e b sensitive to prescribed antibiotic. Signatures: Mirta Stone FNP-C FNP-Danielle Quesada, RN RN iw Ivette Vallecillo Lynsay, RN RN ll1 Yvrose Infante
--- NOTE | 2024-06-22 15:19 | EDPHYS ---
Physician Documentation [facility] Name: Sally Navarro Age: 53 yrs Sex: Female : 1970 Arrival Date: 06/22/2024 Time: 13:53 Bed IW1 Private MD: ED Physician Riki Doyle HPI: 06/22 13:59 This 53 yrs old Female presents to ER via Unassigned with complaints of Sore Throat, kb Vaginal Pain. 13:59 Pt is a 53 year old female who presents for sore throat, cough and bodyaches that kb started 2-3 days and urinary frequency, discomfort with urination and intermittent suprapubic pain for one week. Denies fever. . 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 - Infectious Disease History:: Denies. - Social history:: Smoking status: Patient denies any tobacco usage or history of. ROS: 13:59 Constitutional: As per HPI kb Exam: 13:59 Constitutional: This is a well developed, well nourished patient who is awake, alert, kb and in no acute distress. Head/Face: Normocephalic, atraumatic. Cardiovascular: Regular rate Respiratory: Respirations even and unlabored. No increased work of breathing. Talking in full sentences Abdomen/GI: Soft, non-tender. No distention Skin: Warm, dry with normal turgor. Normal color. MS/ Extremity: Pulses equal, no cyanosis. Neurovascular intact. Full, normal range of motion. Neuro: Awake and alert, GCS 15, oriented to person, place, time, and situation. 13:59 ENT: Posterior pharynx: Airway: normal, no evidence of obstruction, swelling, that is mild, erythema, that is mild, Vital Signs: 14:13 BP 142 / 77; Pulse 85; Resp 19; Temp 98.4; Pulse Ox 99% ; Weight 106.59 kg; Height 5 iw ft. 8 in. ; Pain 0/10; 14:13 Body Mass Index 35.73 (106.59 kg, 172.72 cm) iw 14:13 Pain Scale: Adult iw MDM: 13:57 Medical Screening Exam initiated kb 14:01 Data reviewed: vital signs, nurses notes. kb 15:18 Differential diagnosis: flu, covid, strep, uri, uti. Counseling: I had a detailed kb discussion with the patient and/or guardian regarding the historical points, exam findings, and any diagnostic results supporting the discharge/admit diagnosis, lab results, the need for outpatient follow up, a family practitioner, to return to the emergency department if symptoms worsen or persist or if there are any questions or concerns that arise at home. 06/22 14:01 Order name: Urinalysis w/ reflexes; Complete Time: 14:42 kb 06/22 14:01 Order name: Group A Streptococcus Rapid; Complete Time: 14:40 kb 06/22 14:01 Order name: COVID-19 Ag + Flu A+B Ag; Complete Time: 14:52 kb 06/22 14:43 Order name: Throat Culture EDMS 06/22 14:44 Order name: Urine Culture EDIL Administered Medications: No medications were administered Disposition Summary: 06/22/24 15:18 Discharge Ordered Notes: Location: Home kb Condition: Stable kb Diagnosis - UTI/ Urinary tract infection, site not specified kb - Acute upper respiratory infection, unspecified kb Followup: kb - With: Emergency Department - When: As needed - Reason: Worsening of condition Followup: kb - With: Private Physician - When: 2 - 3 days - Reason: Recheck today's complaints, Continuance of care, Re-evaluation by your physician Discharge Instructions: - Discharge Summary Sheet kb - Urinary Tract Infection, Adult, [id number] kb - Upper Respiratory Infection, Adult, [id number]-[id number] kb Forms: - Medication Reconciliation Form kb - Antibiotic Education kb - Prescription Opioid Use kb - Patient Portal Instructions kb - Leadership Thank You Letter kb Prescriptions: - Augmentin 875-125 mg Oral Tablet - take 1 tablet ORAL route every 12 hours for 10 days; 20 tablet; Refills: 0, kb Product Selection Permitted Addendum: 06/24/2024 15:40 Co-signature as Attending Physician, Riki Doyle MD I agree with the assessment and c jacobs plan of care. Signatures: Dispatcher [employer] EDMirta Estevez FNP-Juliann BLOOM-CkRiki Galvez MD MD cha Williams, Irene, RN RN iw
[2024-06-22 16:46] VITALS: BP 142/77; TEMP 98.4; O2SAT 99
== END 2024-06-22 15:30 | disposition home or self-care (01) ==
LOC: ER 13:53
DX: J06.9 Acute upper respiratory infection, unspecified (principal); N39.0 Urinary tract infection, site not specified; Z11.52 Encounter for screening for COVID-19
CPT/HCPCS: 36415; 81001; 87070; 87077; 87086; 87088; 87186; 87428; 99283

== ENCOUNTER 2024-07-21 15:34 | Emergency (ER) | payer BC ==
[2024-07-21 16:59] LABS: Absolute Basophils 0.1 K/uL (0-0.5); Absolute Eosinophils 0.1 K/uL (0-0.5); Absolute Lymphocytes (CBC) 2.3 K/uL (0.7-4.9); Absolute Monocytes 0.9 K/uL (0.1-1.3); Absolute Neutrophil 6.3 K/uL (1.8-8.0); Eosinophils % 1.4 % (0-4.4); Hematocrit 29.8 % (36.0-45.0); Lymphocytes % 23.7 % (15.3-44.8); MCH 17.5 pg (27.0-35.0); MCV 58.4 fL (80-100); MPV 6.4 fL (7.6-11.3); Monocytes % 9.6 % (3.3-12.3); Neutrophils % 64.3 % (41.7-73.7); Nucleated Red Blood Cells % 0.1 % (0-0); Platelets 559 thou/uL (152-406); Red Cell Distribution Width 18.5 % (12.1-15.2)
--- NOTE | 2024-07-21 17:04 | RAD REPORT ---
EXAM: Soft Tissue Neck W/Contr INDICATION: PAIN Sagittal and coronal reformations were generated. This exam was performed according to our department al dose-optimization program, which includes automated exposure control, adjustment of the mA and/or kV according to patient size and/or use of iterative reconstruction technique. IV contrast was administered. COMPARISON: None. FINDINGS: Mucosal spaces: Nasopharynx, oropharynx, oral cavity, larynx and hypopharynx are normal. No suspiciou s masses are identified. Epiglottis is normal in configuration. True vocal cords cords are normally situated. Piriform sinuses are well-aerated. Enlarged palatine tonsils noted. Lymph Nodes: Lymph node evaluation is limited due to non-contrast technique. No gross pathologic appe aring cervical lymph nodes. Salivary Glands: Unremarkable. Thyroid Gland: Normal Included Intracranial Structures: Grossly unremarkable. Included Orbits: Normal Paranasal Sinuses: Predominantly clear Tympanomastoid Cavities: Normal Vascular Structures: Normal Osseous Structures: Moderate lower cervical degenerative spondylosis. Included Lung Apices: Normal IMPRESSION: Mild tonsillar enlargement noted. Otherwise, essentially negative study.
[2024-07-21 17:09] LABS: Monoscreen NEG (NEG)
[2024-07-21 17:12] LABS: ALT/SGPT 21 U/L (13-56); Albumin 3.7 g/dL (3.4-5.0); Albumin/Globulin Ratio 0.9 (1.1-1.8); Alkaline Phosphatase 96 U/L (45-117); Anion Gap 5.8 mEq/L (5.0-15.0); BUN Blood Urea Nitrogen 22 mg/dL (7-18); Bicarbonate 30 mEq/L (21-32); Bilirubin Total 0.3 mg/dL (0.2-1.0); Globulin 4.3 g/dL (2.3-3.5); Glomerular Filtration Rate 71 ml/min (=/>90); Glucose Level 96 mg/dL (74-106); Potassium 3.8 mEq/L (3.5-5.1); Sodium Level 135 mEq/L (136-145)
[2024-07-21 17:26] LABS: Blood Morphology Comment NOTED (NOT SEEN); Platelet Estimate INCR; Platelets, Giant PRESENT; White Blood Cell Scan OK (OK)
[2024-07-21 17:27] LABS: Hypochromasia 3+; Microcytosis 3+
[2024-07-21] MEDS ORDERED: CEFTRIAXONE 1000 MG/VIAL ONE (17:50)
[2024-07-21] MEDS ORDERED: dexAMETHasone 10 MG/ML VIAL ONE (17:50)
[2024-07-21] MEDS ORDERED: NA CHLORIDE 0.9% 1,000 ML ONE (17:51)
[2024-07-21 18:10] LABS: AST/SGOT < 10 U/L (15-37)
--- NOTE | 2024-07-21 18:15 | EDPHYS ---
Physician Documentation [facility] Name: Sally Navarro Age: 53 yrs Sex: Female : 1970 Arrival Date: 07/21/2024 Time: 15:34 Bed 19 Private MD: ED Physician Riki Doyle HPI: 07/21 17:30 This 53 yrs old Female presents to ER via Ambulatory with complaints of edinson throat problem. 17:30 The patient presents with sore throat. The patient describes throat pain as burning, edinson constant, dry. Onset: The symptoms/episode began/occurred 2 day(s) ago. Severity of symptoms: At their worst the symptoms were mild, moderate, in the emergency department the symptoms are unchanged. Associated signs and symptoms: The patient has no apparent associated signs or symptoms. The patient has experienced similar episodes in the past, several times. 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 - Infectious Disease History:: Denies. - Social history:: Smoking status: Patient denies any tobacco usage or history of. - Family history:: not pertinent. ROS: 17:30 Constitutional: Negative for fever, chills, and weight loss, Eyes: Negative for injury, edinson pain, redness, and discharge, Neck: Negative for injury, pain, and swelling, Cardiovascular: Negative for chest pain, palpitations, and edema, Respiratory: Negative for shortness of breath, cough, wheezing, and pleuritic chest pain, Abdomen/GI: Negative for abdominal pain, nausea, vomiting, diarrhea, and constipation, Back: Negative for injury and pain, : Negative for injury, bleeding, discharge, and swelling, MS/Extremity: Negative for injury and deformity, Skin: Negative for injury, rash, and discoloration, Neuro: Negative for headache, weakness, numbness, tingling, and seizure, Psych: Negative for depression, anxiety, suicide ideation, homicidal ideation, and hallucinations, Allergy/Immunology: Negative for hives, rash, and allergies, Endocrine: Negative for neck swelling, polydipsia, polyuria, polyphagia, and marked weight changes, Hematologic/Lymphatic: Negative for swollen nodes, abnormal bleeding, and unusual bruising, 17:30 ENT: Positive for sore throat, Exam: 17:30 Constitutional: This is a well developed, well nourished patient who is awake, alert, edinson and in no acute distress. Head/Face: Normocephalic, atraumatic. Eyes: Pupils equal round and reactive to light, extra-ocular motions intact. Lids and lashes normal. Conjunctiva and sclera are non-icteric and not injected. Cornea within normal limits. Periorbital areas with no swelling, redness, or edema. Neck: Trachea midline, no thyromegaly or masses palpated, and no cervical lymphadenopathy. Supple, full range of motion without nuchal rigidity, or vertebral point tenderness. No Meningismus. Chest/axilla: Normal chest wall appearance and motion. Nontender with no deformity. No lesions are appreciated. Cardiovascular: Regular rate and rhythm with a normal S1 and S2. No gallops, murmurs, or rubs. Normal PMI, no JVD. No pulse deficits. Respiratory: Lungs have equal breath sounds bilaterally, clear to auscultation and percussion. No rales, rhonchi or wheezes noted. No increased work of breathing, no retractions or nasal flaring. Abdomen/GI: Soft, non-tender, with normal bowel sounds. No distension or tympany. No guarding or rebound. No evidence of tenderness throughout. Back: No spinal tenderness. No costovertebral tenderness. Full range of motion. Skin: Warm, dry with normal turgor. Normal color with no rashes, no lesions, and no evidence of cellulitis. MS/ Extremity: Pulses equal, no cyanosis. Neurovascular intact. Full, normal range of motion., bilateral aka Neuro: Awake and alert, GCS 15, oriented to person, place, time, and situation. Cranial nerves II-XII grossly intact. Motor strength 5/5 in all extremities. Sensory grossly intact. Cerebellar exam normal. Normal gait. Psych: Awake, alert, with orientation to person, place and time. Behavior, mood, and affect are within normal limits. 17:30 ENT: Posterior pharynx: Airway: normal, no evidence of obstruction, Tonsils: are normal in appearance, Uvula: normal, swelling, is not appreciated, Vital Signs: 16:02 BP 152 / 87; Pulse 81; Resp 17; Temp 97.6; Pulse Ox 98% ; Weight 104.33 kg; Height 5 ll1 ft. 8 in. ; Pain 0/10; 18:06 BP 149 / 81; Pulse 70; Resp 16 S; Pulse Ox 97% on R/A; kc6 16:02 Body Mass Index 34.97 (104.33 kg, 172.72 cm) ll1 16:02 Pain Scale: Adult ll1 MDM: 15:53 Medical Screening Exam initiated edinson 17:38 Differential diagnosis: epiglottitis, gingivostomatitis, group A strep tonsillitis, edinson influenza, peritonsillar abscess chlamydia pharyngitis, pharyngitis, squamous cell carcinoma tonsillitis, upper respiratory infection, uvulitis, viral syndrome. Data reviewed: vital signs, nurses notes, lab test result(s), EKG, radiologic studies, plain films. Consideration of Admission/Observation Escalation of care including admission/observation considered. I considered the following discharge prescriptions or medication management in the emergency department Medications were administered in the Emergency Department. See MAR. Independent interpretation of the following test(s) in the Emergency Department CT Scan: My interpretation is ct soft neck. Test considered but Not performed: X-ray: no soft tissue neck x ray. Historians other than the Patient: Family Member: family well informed. Care significantly affected by the following chronic conditions: Hypertension. 07/21 16:20 Order name: CBC with Diff; Complete Time: 17:51 [facility] 07/21 16:20 Order name: CMP; Complete Time: 18:14 [facility] 07/21 16:20 Order name: Group A Streptococcus Rapid [facility] 07/21 16:20 Order name: [place] Screen Profile; Complete Time: 17:27 [facility] 07/21 17:03 Order name: CBC Smear Scan; Complete Time: 17:51 [facility] 07/21 18:56 Order name: Throat Culture [facility] 07/21 16:20 Order name: CT Soft Tissue Neck W/contr; Complete Time: 17:27 [facility] Administered Medications: 18:05 Drug: NS 0.9% IV 1000 ml IV at 1000 ml once; to be given as a bolus over 60 minutes kc6 Route: IV; Rate: 1000 ml; Site: right forearm; 18:59 Follow up: IV Status: Completed infusion; IV Intake: 1000ml ap3 18:05 Drug: Rocephin IV 1 grams IV at per protocol once; Given slow IV push per pharmacy kc6 instructions Route: IV; Rate: per protocol; Site: right forearm; 18:05 Drug: Decadron - Dexamethasone IVP 10 mg IVP once Route: IVP; Site: right forearm; kc6 Disposition Summary: 07/21/24 18:15 Discharge Ordered Notes: Location: Home [facility] Problem: new edinson Symptoms: have improved edinson Condition: Stable edinson Diagnosis - Acute pharyngitis, unspecified edinson - Anemia, unspecified - follow up HEMATOLOGY DR KAMLESH BUCIO cha Followup: edinson - With: Private Physician - When: 2 - 3 days - Reason: Recheck today's complaints, Continuance of care, Re-evaluation by your physician Followup: edinson - With: Mackenzie Avendaño MD - When: 2 - 3 days - Reason: Recheck today's complaints, Re-evaluation by your physician Followup: edinson - With: Savanna Whipple MD - When: 5 - 6 days - Reason: Recheck today's complaints, Re-evaluation by your physician Discharge Instructions: - Discharge Summary Sheet edinson - Pharyngitis edinson - Sore Throat edinson - Pharyngitis, [id number] [facility] Forms: - Medication Reconciliation Form [facility] - Antibiotic Education edinson - Prescription Opioid Use [facility] - Patient Portal Instructions [facility] - Leadership Thank You Letter [facility] Prescriptions: - Tessalon Perles 100 mg Oral capsule - take 2 capsule ORAL route every 8 hours As needed; 30 capsule; Refills: 0, [facility] Product Selection Permitted - Zithromax 500 mg Oral Tablet - take 1 tablet ORAL route once daily for 5 days; 5 tablet; Refills: 0, Product [facility] Selection Permitted - Dexamethasone 4mg Oral tablet - take 1 tablet ORAL route daily for 4 days; 4 tablet; Refills: 0, Product [facility] Selection Permitted Signatures: Dispatcher [employer] Riki Ying MD MD cha Prokisch, Amanda, RN RN ap3 Jesus Diaz RN RN ll1 Adelaide Kurtz RN RN kc6
--- NOTE | 2024-07-21 18:15 | ER ---
Nurse's Notes [facility] Name: Sally Navarro Age: 53 yrs Sex: Female : 1970 Arrival Date: 07/21/2024 Time: 15:34 Bed 19 Private MD: Diagnosis: Acute pharyngitis, unspecified;Anemia, unspecified-follow up HEMATOLOGY DR KAMLESH BUCIO Presentation: 07/21 16:02 Chief complaint: Patient states: Finished antibiotics for throat infection that she was ll1 here for 3 weeks ago. Still coughing, throat tickling, weak/fatigued, SOB with exertion since. Coronavirus screen: Client denies travel out of the [place] in the last 14 days. At this time, the client does not indicate any symptoms associated with coronavirus-19. Ebola Screen: Patient denies travel to an Ebola-affected area in the 21 days before illness onset. Initial Sepsis Screen: Does the patient meet any 2 criteria? No. Patient's initial sepsis screen is negative. Does the patient have a suspected source of infection? No. Patient's initial sepsis screen is negative. Risk Assessment: Do you want to hurt yourself or someone else? Patient reports no desire to harm self or others. Onset of symptoms was June 30, 2024. 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 - Infectious Disease History:: Denies. - Social history:: Smoking status: Patient denies any tobacco usage or history of. - Family history:: not pertinent. Screenin:05 [facility] ED Fall Risk Assessment (Adult) History of falling in the last 3 months, kc6 including since admission No falls in past 3 months (0 pts) Confusion or Disorientation No (0 pts) Intoxicated or Sedated No (0 pts) Impaired Gait No (0 pts) Mobility Assist Device Used No (0 pt) Altered Elimination No (0 pt) Score/Fall Risk Level 0 - 2 = Low Risk Oriented to surroundings. Abuse screen: Denies threats or abuse. Denies injuries from another. Nutritional screening: No deficits noted. Tuberculosis screening: No symptoms or risk factors identified. Assessment: 18:06 General: Appears in no apparent distress. comfortable, well groomed, well developed, kc6 Behavior is calm, cooperative, appropriate for age, Reports fatigue for >3 days. Pain: Complains of pain in neck. Neuro: Level of Consciousness is awake, alert, obeys commands, Oriented to person, place, time, situation, Appropriate for age Reports dizziness. Cardiovascular: Reports lightheadedness, Denies diaphoresis, shortness of breath. Respiratory: Airway is patent Trachea midline Respiratory effort is even, unlabored, Respiratory pattern is regular, symmetrical. GI: No signs and/or symptoms were reported involving the gastrointestinal system. : No signs and/or symptoms were reported regarding the genitourinary system. EENT: Throat is reddened has enlarged tonsils bilaterally with gag reflex present, Reports difficulty swallowing pain when swallowing. Derm: No signs and/or symptoms reported regarding the dermatologic system. Skin is intact, is healthy with good turgor, Skin is dry, Skin is pale, Skin temperature is warm. Musculoskeletal: No signs and/or symptoms reported regarding the musculoskeletal system. Circulation, motion, and sensation intact. Range of motion: intact in all extremities. 18:23 Reassessment: d/c pending results of strep swab. kc6 Vital Signs: 16:02 BP 152 / 87; Pulse 81; Resp 17; Temp 97.6; Pulse Ox 98% ; Weight 104.33 kg; Height 5 ll1 ft. 8 in. ; Pain 0/10; 18:06 BP 149 / 81; Pulse 70; Resp 16 S; Pulse Ox 97% on R/A; kc6 16:02 Body Mass Index 34.97 (104.33 kg, 172.72 cm) ll1 16:02 Pain Scale: Adult ll1 ED Course: 15:36 Patient arrived in ED. mr 15:42 Arm band placed on. ap3 15:53 Riki Doyle MD is Attending Physician. edinson 16:04 Triage completed. ll1 16:45 CT Soft Tissue Neck W/contr In Process Unspecified. EDMS 16:48 CMP Sent. ty 16:48 CBC with Diff Sent. ty 16:48 Group A Streptococcus Rapid Sent. ty 16:48 [place] Screen Profile Sent. ty 16:48 Initial lab(s) drawn, by ED staff, sent to lab. Inserted saline lock: 22 gauge in right ty antecubital area, using aseptic technique. Blood collected. Flushed with 10 mL NS. 17:49 Adelaide Kurtz, RN is Primary Nurse. kc6 18:05 Patient has correct armband on for positive identification. Bed in low position. Call kc6 light in reach. Side rails up X 1. Adult w/ patient. Pulse ox on. NIBP on. Door closed. Noise minimized. Lights dimmed. Pillow given. Verbal reassurance given. 18:05 Strep swab sent to lab. Patient maintains SpO2 saturation greater than 95% on room air. kc6 18:15 Mackenzie Avendaño MD is Referral Physician. [facility] 18:15 Savanna Whipple MD is Referral Physician. [facility] 18:58 Provided Education on: discharge instructions . ap3 18:58 No provider procedures requiring assistance completed. IV discontinued, intact, ap3 bleeding controlled, No redness/swelling at site. Pressure dressing applied. Administered Medications: 18:05 Drug: NS 0.9% IV 1000 ml IV at 1000 ml once; to be given as a bolus over 60 minutes kc6 Route: IV; Rate: 1000 ml; Site: right forearm; 18:59 Follow up: IV Status: Completed infusion; IV Intake: 1000ml ap3 18:05 Drug: Rocephin IV 1 grams IV at per protocol once; Given slow IV push per pharmacy kc6 instructions Route: IV; Rate: per protocol; Site: right forearm; 18:05 Drug: Decadron - Dexamethasone IVP 10 mg IVP once Route: IVP; Site: right forearm; kc6 Medication: 18:58 VIS not applicable for this client. ap3 Intake: 18:59 IV: 1000ml; Total: 1000ml. ap3 Outcome: 18:[address] [facility] 18:58 Discharged to home ambulatory, with family, ap3 18:58 Condition: good 18:58 Discharge instructions given to patient, Instructed on discharge instructions, follow up and referral plans. medication usage, Demonstrated understanding of instructions, follow-up care, medications, Prescriptions given X 3, 18:59 Patient left the ED. ap3 Signatures: Dispatcher [employer] Riki Ynig MD MD cha Rivera [facility], Reg Reg mr Cathryn, Nat, RN RN ap3 Jesus Diaz, RN RN ll1 Adelaide Kurtz, RN RN kc6 Ross White
[2024-07-21 19:19] VITALS: TEMP 97.6
[2024-07-21 19:20] VITALS: BP 149/81; O2SAT 97
== END 2024-07-21 18:59 | disposition home or self-care (01) ==
LOC: ER 15:34
DX: J02.9 Acute pharyngitis, unspecified (principal); D64.9 Anemia, unspecified; I10 Essential (primary) hypertension
CPT/HCPCS: 96361; 87070; 85025; 36415; 86308; 80053; 70491; 96375; 96374; 99284; Q9967; J1100; J7030; J0696